=== PATIENT | female | born 1950 | race Caucasian/White ===

== ENCOUNTER 2023-07-03 11:31 | Emergency (ER) | payer MEDICARE, SELFPAY ==
[2023-07-03] VITALS (11 sets, daily range): BP systolic 137–146; BP diastolic 80–91; PULSE 104; RESP 20; TEMP 36.1; O2SAT 93–100; BMI 26.3
--- NOTE | 2023-07-03 12:01 | ED.GENADUL1 ---
HPI - General Adult General Chief complaint: Extremity Problem, Nontraumatic Stated complaint: LOWER EXTREMITY PAIN TO RIGHT SIDE HIP/LEG Time Seen by Provider: 07/03/23 11:38 Source: patient Mode of arrival: Wheelchair Limitations: no limitations History of Present Illness HPI narrative: 73-year-old female presents for right hip pain. She's been having it severely for about fifteen days. She was admitted at the hospital in [place] for four days and then she was admitted at the [facility] for five days. She left there about a week ago. She states that they ran many tests on her but she is not really sure what was wrong. She states that she didn't want to stay and it sounds like she signed out against medical advice. No injury. Related Data Previous Rx's Medication Instructions Recorded oxycodone-acetaminophen 5 mg-325 1 tab PO Q6H PRN pain 7 days #30 07/03/23 mg tablet (Percocet) tabs Allergies Allergy/AdvReac Type Severity Reaction Status Date / Time Iodinated Contrast Media Allergy Severe Anaphylaxis Verified 07/03/23 11:46 Latex, Natural Rubber Allergy Severe Nausea Verified 07/03/23 11:46 codeine AdvReac Severe Nausea Verified 07/03/23 11:46 Review of Systems ROS Narrative A ten point review of systems is negative except as noted above. PFSH PFSH Social History Smoking status: Former smoker Exam Narrative Exam Narrative: Nurses note and vital signs reviewed and patient is not hypoxic. General: The patient appears uncomfortable and is tearful. Skin: Warm, dry, no pallor noted. There is no rash noted. Head: Normocephalic, atraumatic Eye: Normal conjunctiva, no drainage Ears, Nose, Mouth, and Throat: oral mucosa is moist. Nares patent. Cardiovascular: Regular Rate and Rhythm Respiratory: Patient is in no distress, no accessory muscle use, lungs are clear to auscultation, no wheezing, rales or rhonchi Back: non-tender GI: no tenderness to palpation, no masses appreciated. No rebound, guarding, or rigidity noted. Musculoskeletal: the right hip has no bruise or rash. Range of motion causes discomfort. No swelling in the leg. Neurological: A&O, normal speech Psychiatric: Cooperative Constitutional Vital Signs, click to edit/add: Last Vital Signs Temp 97 F L 07/03/23 11:38 Pulse 104 H 07/03/23 11:38 Resp 20 07/03/23 11:38 BP 146/91 H 07/03/23 11:43 Pulse Ox 96 07/03/23 13:10 O2 Del Method Room Air 07/03/23 11:38 Course Vital Signs Vital signs: Vital Signs Temperature 97 F L 07/03/23 11:38 Pulse Rate 104 H 07/03/23 11:38 Respiratory Rate 20 07/03/23 11:38 Blood Pressure 146/91 H 07/03/23 11:38 Pulse Oximetry 98 07/03/23 11:38 Oxygen Delivery Method Room Air 07/03/23 11:38 Temperature 97 F L 07/03/23 11:38 Pulse Rate 104 H 07/03/23 11:38 Respiratory Rate 20 07/03/23 11:38 Blood Pressure 146/91 H 07/03/23 11:43 Pulse Oximetry 96 07/03/23 13:10 Oxygen Delivery Method Room Air 07/03/23 11:38 Medical Decision Making MDM Narrative Medical decision making narrative: I was able to obtain her electronic medical record from the [facility]. She was diagnosed with a T12 compression fracture with some fragments causing some spinal stenosis. There is no evidence of cauda equina. She was given IV morphine here and feels improved. She'll follow-up with her pain management physician and she is encouraged to follow-up with a back specialist. She'll be able to do that in her home town which is in [place]. Treatment diagnosis and follow-up were discussed with the patient. She has no acute neurologic deficit. Differential Diagnosis Differential Diagnosis: compression fracture, cauda equina syndrome, lumbar muscle strain Lab Data Lab results reviewed: Yes I reviewed the patient's lab results Labs: Lab Results 07/03/23 Range/Units 13:18 Urine Color Lt. yellow (YELLOW) Urine Clarity Clear (CLEAR) Urine pH 7.5 (5.0-9.0) Ur Specific [place] 1.015 (1.005-1.025) Urine Protein Negative (NEG/TRACE) mg/dL Urine Glucose (UA) Negative (NEGATIVE) mg/dL Urine Ketones Negative (NEGATIVE) mg/dL Urine Occult Blood Negative (NEGATIVE) Urine Nitrite Negative (NEGATIVE) Urine Bilirubin Negative (NEGATIVE) Urine Urobilinogen 0.2 (0.2-1.0) EU/dL Ur Leukocyte Esterase Negative (NEGATIVE) Urine RBC None seen (0-2) #/HPF Urine WBC 0-2 A (NONE SEEN) #/HPF Ur Squamous Epith Cells Rare (NONE/RARE) #/LPF Urine Crystals Seen A (None Seen) #/HPF Amorphous Sediment Moderate Urine Bacteria None seen (NONE SEEN) #/HPF Urine Casts None seen (NONE SEEN) #/LPF Urine Mucus None seen (NONE SEEN) Discharge Plan Discharge Chief Complaint: Extremity Problem, Nontraumatic Clinical Impression: Compression fracture of thoracic vertebra Patient Disposition: Home, Self-Care Time of Disposition Decision: 15:09 Condition: Good Mode of Transportation: Private Vehicle Prescriptions / Home Meds: New oxycodone-acetaminophen [Percocet] 5-325 mg tablet 1 tab PO Q6H PRN (Reason: pain) 7 Days Qty: 30 0RF Instructions: Osteoporosis (ED), Vertebral Compression Fracture (ED), Kyphoplasty (DC), Vertebroplasty (DC) Stand Alone Forms: Portal Instructions Referrals: Physician,Non-Staff, MD [Primary Care Provider] - 1 week
[2023-07-03] MEDS: MORPHINE SULFATE 4 MG/ML VIAL IV ×2 (12:21→15:27)
[2023-07-03 13:25] LABS: Bilirubin Urine NEGATIVE (NEGATIVE); Blood Urine NEGATIVE (NEGATIVE); Clarity Urine CLEAR (CLEAR); Color Urine LT. YELLOW (YELLOW); Glucose Urine UA NEGATIVE (NEGATIVE); Ketones Urine NEGATIVE (NEGATIVE); Leukocyte Esterase Urine NEGATIVE (NEGATIVE); Nitrite Urine NEGATIVE (NEGATIVE); Protein Urine NEGATIVE (NEG/TRACE); Specific Gravity Urine 1.015 (1.005-1.025); Urobilinogen Urine 0.2 EU/dL (0.2-1.0); pH Urine 7.5 (5.0-9.0)
[2023-07-03 13:36] LABS: Amorphous Sediment Urine MODERATE; Bacteria Urine NONE SEEN #/HPF (NONE SEEN); Cast Seen? NONE SEEN #/LPF (NONE SEEN); Crystals Seen? Seen #/HPF (None Seen); Mucus Urine NONE SEEN (NONE SEEN); RBC Urine NONE SEEN #/HPF (0-2); Squamous Epithelial Cell Urine RARE #/LPF (NONE/RARE); WBC Urine 0-2 #/HPF (NONE SEEN)
== END 2023-07-03 15:32 | disposition home or self-care (01) ==
PROVIDERS: Emergency Provider Emergency Medicine
DX: M48.54XA Collapsed vertebra, not elsewhere classified, thoracic region, initial encounter for fracture (principal); Z87.891 Personal history of nicotine dependence
CPT/HCPCS: 81001; 96374; 96376; 99284

== ENCOUNTER 2025-01-07 13:57 | Emergency (ER) | payer MEDICARE, SELFPAY ==
--- OUTSIDE RECORDS SUMMARY | 2025-01-06 10:02 | XMS_ITS ---
Author Organization [facility] Giovanni Dunne Address [address] [place] [address] Care Team Providers Care Computing Tutor Name Role Phone Munir Hughes Primary Care Provider [phone] REASON FOR VISIT Other Medications Medication SIG (Take, Route, Fr equency, Duration) Notes Start Date End Date Status Meloxicam 15 MG 1 tablet Orally Once a day for 90 days 06/05/2024 Active Social History Sex Assigned At : Social History Observation Description Sex Assigned At Female Encounters Encounter Location Date Provider Diagnosis [facility]- [address] [place] [id number] 01/06/2025 Munir Hughes Chronic pain syndrome G89.4 Assessments Encounter Date Diagnosis (ICD Code) Assessment Notes Treatment Notes Treatment Clinical Notes Section Notes 01/06/2025 Chronic pain syndrome (ICD-10 - G89.4) Plan Of Treatment Medication Medication Name Sig Start Date Stop Date Notes Meloxicam 15 MG 1 tablet Orally Once a day for 90 days Progress Notes * FAUSTINO COATS Olga LidiaDOB:1950 ( 74 yo F)Acc No.[id number]:01/06/2025 Patient: FAUSTINO BAUGH :1950 A ge:74 Y S ex:Female Address:[address], [place], [address] * Refills Refill Meloxicam Tablet, 15 MG, Orally, 90, 1 tablet, Once a day, 90 days, Refills=0 * true * Date: Generated for George peguero/Valentino/Klaus on: 0 01/07/2025 02:05 PM EDT
--- OUTSIDE RECORDS SUMMARY | 2025-01-07 07:32 | XMS_ITS ---
Author Organization [facility] Irenadione sahni Giovanni Address [address] [place] [address] Care Team Providers Care Deliverer Pharmacy Name Role Phone Munir Hughes Primary Care Provider REASON FOR VISIT fax order Social History Sex Assigned At : Social History Observation Description Sex Assigned At Female Encounters Encounter Location Date Provider Diagnosis [facility] [place]- [address] [place] [id number] 01/07/2025 Munir Hughes Plan Of Treatment No Information Progress Notes * FAUSTINO COATS Olga LidiaDOB:1950 ( 74 yo F)Acc No.[id number]:01/07/2025 Patient: FAUSTINO BAUGH J :1950 A ge:74 Y S ex:Female Address:[address], [place], [address] * true * Date: Generated for Printi ng/Fabridgetg/eTransmitting on: 0 01/07/2025 02:05 PM EDT
--- OUTSIDE RECORDS SUMMARY | 2025-01-07 10:00 | XMS_ITS ---
Author Organization [facility] Giovanni Dunne Address [address] [place] [address] Care Team Providers Care Country Manager Name Role Phone Munir Hughes Primary Care Provider [phone] REASON FOR VISIT med refills Social History Sex Assigned At : Social History Observation Description Sex Assigned At Female Encounters Encounter Location Date Provider Diagnosis [facility] [address] [place], [place] [phone] 01/07/2025 Munir Hughes Plan Of Treatment No Information Progress Notes * FAUSTINO COATSDOB:1950 ( 74 yo F)Acc No.[id number]:01/07/2025 Patient: FAUSTINO BAUGH Provider: JENNIFER FRANKS :1950 A ge:74 Y S ex:Female Date:01/07/2025 Address:[address] [facility] Subjective: * Chief Complaints: * 1 . Med refills. * Medical History: Objective: * Vitals: Assessment: Plan: * Treatment: * Billing Information: * Visit Code: * Procedure Codes: * Electronic signature of LOU Quijano on 01/07/2025 at 02:05 PM EDT Sign off status: Pending * Provider: JENNIFER FRANKS Date: 01/07/2025 Generated for Printi ng/Fabrdigetg/eTransmitting on: 01/07/2025 02:05 PM EDT
--- OUTSIDE RECORDS SUMMARY | 2025-01-07 14:05 | XMS_ITS | Patient Health Record ---
Author Organization [facility] in [place] Address [address] [place] [address] Care Team Providers Care Visual Manager Name Role Phone Munir Hughes Primary Care Provider Unavailabl e Reason For Referral No Information Medications Medication SIG (Take, Route, Frequency, Duration) Notes Start Date End Date Status Qvar RediHaler 40 MCG/ACT 1 puff Inhalation Once a day Sample, , * Lot #[id number], Expiration Date:09/0903/11/2019 Active Lisinopril 10 MG 1 tablet Orally Once a day for 30 day(s) Active Ambien 5 MG 1 tablet at bedtime Orally Once a day Active Nebulizer - as directed Active Ventolin HFA 108 (90 Base) MCG/ACT as directed Inhalation Active Albuterol Sulfate (2.5 MG/3ML) 0.083% 3 ml as needed Inhalation every 8 hrs Active Xanax 0.5 MG 1 tablet Orally Twice a day Active Immunizations Vaccine Route Administration Date Status Comm nts Flu, Unspecified Unknown 05/12/2018 Administered Pneumococcal (Prevnar 7) - historic Unknown 10/18/2016 Administered Social History Tobacco Use: Social History Observation Description Date Details (start date - stop date) Never Smoker NA - NA Tobacco Use/Smoking Question Answer Notes Patient is a nonsmoker Problems No Known Problems Plan Of Treatment No Information Insurance Providers Payer Name Payer Address Payer Phone Subscriber Number Group Number Insured Name Patient Relationship to Insured Coverage Start Date Coverage End Date [place] [address] [place], [place] [id number] Kahlil Patricia Self - patient is the insured [place] [address] [address] DEPT OF [place], [place] [id number] Patricia Guillory Self - patient is the insured 6 Medical (General) History Medical History History ICD Code Chemical Pneumonia Surgical History Surgery Date(Month/Year) None since last visit Hospitalization History Reason Date(Month/Year) Chemical Poision 12/07
[2025-01-07 14:09] VITALS: BP 150/89; PULSE 74; TEMP 36.4; O2SAT 95; BMI 28.2
--- NOTE | 2025-01-07 14:22 | XR_ITS ---
The [address] [address] Patient Name: FAUSTINO COATS MRN: [id number] date: 1950 Sex: F Assigned Patient Location: ER Current Patient Location: ER Accession/Order Number: [id number] Exam Date: 01/07/2025 15:21 Report Date: 01/07/2025 15:23 At the request of: DIMITRIS BYRD NP Procedure: XR hip RT min 2V XR hip RT min 2V 01/07/2025 3:11 PM SIGNS AND SYMPTOMS: Acute right groin pain PROTOCOL: Frontal radiograph the pelvis with frontal and frog-leg views of the right hip COMPARISON: None FINDINGS: There is mild narrowing of the joint spaces of the hips. The bony ring of the pelvis is intact. There is no evidence of fracture or dislocation. Degenerative changes are noted in the lower lumbar spine. Vascular calcific the pelvis. XR/XR hip RT min 2V IMPRESSION: No acute bony injury. Degenerative changes are noted in the hips and within the lumbar spine. Impression dictated by: Jarred Santoro M.D. 01/07/2025 3:23 PM Dictation Location: [place] [address] Electronically authenticated by: [id number] Y Date: 01/07/2025 15:23
--- NOTE | 2025-01-07 14:22 | XR_ITS ---
The [place] [id number] Patient Name: FAUSTINO COATS MRN: [id number] date: 1950 Sex: F Assigned Patient Location: ER Current Patient Location: ER Accession/Order Number: [id number] Exam Date: 01/07/2025 15:23 Report Date: 01/07/2025 15:24 At the request of: DIMITRIS BYRD NP Procedure: XR lumbar spine 2-3V XR lumbar spine 2-3V 01/07/2025 3:11 PM SIGNS AND SYMPTOMS: Low back and right hip pain PROTOCOLS: Frontal and lateral radiographs of the lumbar spine COMPARISON: None FINDINGS: There is a levoconvex curvature of the lumbar spine. There is severe disc height loss at L4-5 and L5-S1. There is mild disc height loss throughout otherwise. There is a remote appearing compression deformity at the inferior endplate at T12.. Mild degenerative changes are noted in the sacroiliac joints. XR/XR lumbar spine 2-3V IMPRESSION: No fracture or subluxation. Degenerative changes are present, greatest at L4-L5 and L5-S1. There is a remote appearing compression deformity involving the inferior endplate at T12 with anterior wedging. Impression dictated by: Jarred Santoro M.D. 01/07/2025 3:24 PM Dictation Location: [place] [address] Electronically authenticated by: [id number] Y Date: 01/07/2025 15:24
[2025-01-07] MEDS: MORPHINE SULFATE 2 MG/ML SYRINGE IV (14:40)
[2025-01-07] MEDS: ONDANSETRON PF 4 MG/2 ML VIAL IV (14:40)
--- NOTE | 2025-01-07 14:52 | ED.GENADUL1 ---
HPI HPI - General Adult General Chief complaint: Urogenital-Female Stated complaint: ABDOMINAL FLANK PAIN Time Seen by Provider: 01/07/25 14:04 Source: patient Mode of arrival: walk-in History of Present Illness HPI narrative: Patient is a 74-year-old female who presents to the emergency department today for evaluation for concerns for back and abdominal pain week. She reports the pain to be radiating from where she believes her right groin region around to her lower back. She reports the pain to be constant and believes it to be worse with movement and does describe it sharp intermittently. She states she has had episodes of nausea without vomiting. She reports she was seen at [facility] last week where she had an ultrasound of her right groin and there was concern for arterial blood flow issues and states she does have a CAT scan scheduled to further evaluate for this. She otherwise denies any abdominal pain, vomiting, or diarrhea. No fever/chills, chest pain, shortness of breath, urinary symptoms. Any paresthesias, weakness, loss of movement or lower extremities. She states she had similar pain 2 years ago she was at the [facility] and states she received [place] and Zofran which she had leftovers of and subsequently took for this pain which she states did help. Related Data Home Medications ?Medication ?Instructions ?Recorded ?Confirmed albuterol sulfate 2.5 mg/3 mL mg 01/07/25 (0.083 %) solution for nebulization amoxicillin 500 mg capsule mg 01/07/25 cyclosporine 0.05 % eye drops in a drp ophthalmic (eye) 01/07/25 dropperette (Restasis) lisinopril 5 mg tablet mg 01/07/25 lorazepam 0.5 mg tablet mg 01/07/25 meloxicam 15 mg tablet mg 01/07/25 omeprazole 20 mg capsule,delayed mg 01/07/25 release Previous Rx's ?Medication ?Instructions ?Recorded hydrocodone 5 mg-acetaminophen 325 1 tab PO Q6H PRN pain #7 tabs 01/07/25 mg tablet methylprednisolone 4 mg tablets in 4 mg PO DAILY #21 ea 01/07/25 a dose pack (Medrol (Kirill)) ondansetron 4 mg disintegrating 4 mg PO Q8H PRN nausea and 01/07/25 tablet vomiting 4 days #10 tabs Allergies Allergy/AdvReac Type Severity Reaction Status Date / Time Iodinated Contrast Media Allergy Severe Anaphylaxis Verified 01/07/25 14:06 Latex, Natural Rubber Allergy Severe Nausea Verified 01/07/25 14:06 codeine AdvReac Severe Nausea Verified 01/07/25 14:06 Opioid HPI Opioid Management Most Recent Opioid Data: Last Pain Scale 7 Today, 14:40 Last MAR Pain Assessment Today, 14:40 Review of Systems ROS Status of ROS 10 or more systems reviewed and unremarkable except as noted in history and below PFSH PFSH Social History Smoking status: Former smoker Little interest or pleasure in doing things: not at all Feeling down, depressed, or hopeless: not at all Exam Narrative Exam Narrative: Constituational: Awake/ alert, no apparent distress, well hydrated HENMT: normocephalic, external ears normal, moist oral mucous membranes and oropharynx normal Eyes: EOMI and conjunctivae normal Neck: ROM intact Chest: inspection of chest normal Respiratory: Normal respiratory effort, clear to auscultation bilaterally Cardio: regular rate and regular rhythm GI: soft to palpation and non-tender Back: + Discomfort over R flank/lumbar region, no vertebral tenderness, back is otherwise nontender and normal to inspection MSK:+ Discomfort with palpation over R groin, otherwise normal inspection of R LE, ROM intact, +NVI Skin: no rashes or petechiae Neuro: no focal deficits Psych: mental status grossly normal Constitutional Vital Signs, click to edit/add: Last Vital Signs Temp 97.6 F 01/07/25 14:09 Pulse 74 01/07/25 14:09 Resp 16 01/07/25 14:09 BP 150/89 H 01/07/25 14:09 Pulse Ox 95 01/07/25 14:09 O2 Del Method Room Air 01/07/25 14:09 Course Vital Signs Vital signs: Vital Signs Temperature 97.6 F 01/07/25 14:09 Pulse Rate 74 01/07/25 14:09 Respiratory Rate 16 01/07/25 14:09 Blood Pressure 150/89 H 01/07/25 14:09 Pulse Oximetry 95 01/07/25 14:09 Oxygen Delivery Method Room Air 01/07/25 14:09 Temperature 97.6 F 01/07/25 14:09 Pulse Rate 74 01/07/25 14:09 Respiratory Rate 16 01/07/25 14:09 Blood Pressure 150/89 H 01/07/25 14:09 Pulse Oximetry 95 01/07/25 14:09 Oxygen Delivery Method Room Air 01/07/25 14:09 Medical Decision Making MDM Narrative Medical decision making narrative: The patient is a overall well-appearing 74-year-old female who presented to the emergency department today for evaluation concerns for pain mostly to her right hip/groin and low back that is reproducible with movement. Initial examination without any concerning neurovascular motor findings. Abdomen is nonacute on exam. Historically she did endorse having an ultrasound of her right groin at the [facility] where she reports she had her right leg abducted and following this she began having worsening pain to her hip and back. And she has somebody poor and confusing historian pain possibly seems radicular in nature. There additionally was some elevated concern for possible renal calculus as she endorsed to the right flank with symptoms of possible nausea. CT imaging of abdomen pelvis is without critical findings including kidney stone. Negative for UTI and no occult blood noted. Labs otherwise stable and showed no significant leukocytosis, anemia, thrombocytopenia. Electrolytes including renal and hepatic function stable. X-ray imaging of right hip and lumbar spine does show degenerative changes otherwise no critical findings. Clinical impression arthralgia of right hip and lower right lumbar region. Patient endorsed peripheral arterial disease in the right groin however there are no concerning neurovascular motor findings on exam. She does have a palpable pedal pulse and extremity is warm to touch with stable capillary refill present. Patient did receive supportive measures of IV morphine and Zofran and on reevaluation she reported some improvement in pain. She did receive [place] prior to discharge. Discussed these findings with the patient including recommendations for supportive care of arthralgia. Will discharge home with Medrol Dosepak in addition to [place] and we will fill Zofran for patient. Advised on follow-up with patient's primary care provider for reevaluation. Additionally advised that pain may be multifactorial and related to peripheral arterial disease at which she was encouraged to follow-up with her vascular specialist at [facility] for further reevaluation and additional recommendations for medical therapy in the interim. Discussed signs and symptoms of any worsening condition and when to consider reevaluation. Patient verbalized an understanding of this and is agreeable with the plan to be discharged home. Medical Records Medical records reviewed: Yes I reviewed the patient's medical records Lab Data Lab results reviewed: Yes I reviewed the patient's lab results Labs: Lab Results 01/07/25 01/07/25 Range/Units 14:10 14:35 WBC 6.4 (4.0-11.0) 10^3/uL RBC 4.50 (4.20-5.40) 10^6/uL Hgb 14.1 (12.0-16.0) g/dL Hct 41.7 (36.0-48.0) % MCV 92.7 (81.0-99.0) fL MCH 31.3 (26.7-34.0) pg MCHC 33.8 (29.9-35.2) g/dL RDW 13.7 (11.0-15.0) % Plt Count 235 (150-450) 10^3/uL MPV 9.6 (9.5-13.5) fL Neut % (Auto) 69.3 (43.0-75.0) % Lymph % (Auto) 21.8 (20.5-60.0) % [place]ilton % (Auto) 8.2 (1.7-12.0) % Eos % (Auto) 0.0 L (0.9-7.0) % Baso % (Auto) 0.5 (0.2-2.0) % Neut # (Auto) 4.4 (1.4-6.5) 10^3/uL Lymph # (Auto) 1.4 (1.2-3.8) 10^3/uL [place]ilton # (Auto) 0.5 (0.3-0.8) 10^3/uL Eos # (Auto) 0.0 (0.0-0.7) 10^3/uL Baso # (Auto) 0.0 (0.0-0.1) 10^3/uL Abs Immat Gran (auto) 0.01 (0.00-0.03) 10^3/uL Imm/Tot Granulo (auto) 0.2 (0.0-0.5) % Sodium 140 (136-145) mmol/L Potassium 4.5 (3.5-5.1) mmol/L Chloride 102 (98-107) mmol/L Carbon Dioxide 30.1 (21.0-32.0) mmol/L Anion Gap 12.4 BUN 25.0 H (7.0-18.0) mg/dL Creatinine 0.67 (0.55-1.02) mg/dL Est GFR ( Amer) >60 (>=60 mL/min/1.73m^2) Est GFR (Non-Af Amer) >60 (>=60 mL/min/1.73m^2) BUN/Creatinine Ratio 37.3 Glucose 154 H (74-106) mg/dL Calcium 10.3 H (8.5-10.1) mg/dL Total Bilirubin 0.5 (0.2-1.0) mg/dL AST 21 (15-37) U/L ALT 38 (14-59) U/L Alkaline Phosphatase 72 (46-116) U/L Total Protein 7.2 (6.4-8.2) g/dL Albumin 3.7 (3.4-5.0) g/dL Globulin 3.5 g/dL Albumin/Globulin Ratio 1.1 Lipase 29.0 (16.0-77.0) U/L Urine Color Lt. yellow (YELLOW) Urine Clarity Clear (CLEAR) Urine pH 6.0 (5.0-9.0) Ur Specific Mcclave 1.025 (1.005-1.025) Urine Protein Negative (NEG/TRACE) mg/dL Urine Glucose (UA) Negative (NEGATIVE) mg/dL Urine Ketones Negative (NEGATIVE) mg/dL Urine Occult Blood Negative (NEGATIVE) Urine Nitrite Negative (NEGATIVE) Urine Bilirubin Negative (NEGATIVE) Urine Urobilinogen 0.2 (0.2-1.0) EU/dL Ur Leukocyte Esterase Negative (NEGATIVE) Imaging Data CT scan - abdomen: Attestation: I have reviewed the pertinent imaging results. Radiologist's impression: ITS Impressions Hip X-Ray 01/07/25 14:22 IMPRESSION: No acute bony injury. Degenerative changes are noted in the hips and within the lumbar spine. Impression dictated by: Jarred Santoro M.D. 01/07/2025 3:23 PM Dictation Location: [place] [address] Electronically authenticated by: [id number] Y Date: 01/07/2025 15:23 Lumbar Spine X-Ray 01/07/25 14:22 IMPRESSION: No fracture or subluxation. Degenerative changes are present, greatest at L4-L5 and L5-S1. There is a remote appearing compression deformity involving the inferior endplate at T12 with anterior wedging. Impression dictated by: Jarred Santoro M.D. 01/07/2025 3:24 PM Dictation Location: [facility] Electronically authenticated by: [id number] Y Date: 01/07/2025 15:24 Abdomen/Pelvis CT 01/07/25 15:03 IMPRESSION: No renal, ureteral, or bladder stones. No bowel obstruction or obstructive uropathy. Uncomplicated colonic diverticula are noted. Impression dictated by: Jarred Santoro M.D. 01/07/2025 3:20 PM Dictation Location: [facility] Electronically authenticated by: [id number] Y Date: 01/07/2025 15:20 XR Right Hip: Attestation: I have reviewed the pertinent imaging results. Radiologist's impression: ITS Impressions Hip X-Ray 01/07/25 14:22 IMPRESSION: No acute bony injury. Degenerative changes are noted in the hips and within the lumbar spine. Impression dictated by: Jarred Santoro M.D. 01/07/2025 3:23 PM Dictation Location: [facility] Electronically authenticated by: [id number] Y Date: 01/07/2025 15:23 Lumbar Spine X-Ray 01/07/25 14:22 IMPRESSION: No fracture or subluxation. Degenerative changes are present, greatest at L4-L5 and L5-S1. There is a remote appearing compression deformity involving the inferior endplate at T12 with anterior wedging. Impression dictated by: Jarred Santoro M.D. 01/07/2025 3:24 PM Dictation Location: [facility] Electronically authenticated by: [id number] Y Date: 01/07/2025 15:24 Abdomen/Pelvis CT 01/07/25 15:03 IMPRESSION: No renal, ureteral, or bladder stones. No bowel obstruction or obstructive uropathy. Uncomplicated colonic diverticula are noted. Impression dictated by: Jarred Santoro M.D. 01/07/2025 3:20 PM Dictation Location: [facility] Electronically authenticated by: [id number] Y Date: 01/07/2025 15:20 XR Lumbar Spine: Attestation: I have reviewed the pertinent imaging results. Radiologist's impression: ITS Impressions Hip X-Ray 01/07/25 14:22 IMPRESSION: No acute bony injury. Degenerative changes are noted in the hips and within the lumbar spine. Impression dictated by: Jarred Santoro M.D. 01/07/2025 3:23 PM Dictation Location: [facility]--23 Electronically authenticated by: [id number] Y Date: 01/07/2025 15:23 Lumbar Spine X-Ray 01/07/25 14:22 IMPRESSION: No fracture or subluxation. Degenerative changes are present, greatest at L4-L5 and L5-S1. There is a remote appearing compression deformity involving the inferior endplate at T12 with anterior wedging. Impression dictated by: Jarred Santoro M.D. 01/07/2025 3:24 PM [facility]ation [facility] Electronically authenticated by: [id number] Y Date: 01/07/2025 15:24 Abdomen/Pelvis CT 01/07/25 15:03 IMPRESSION: No renal, ureteral, or bladder stones. No bowel obstruction or obstructive uropathy. Uncomplicated colonic diverticula are noted. Impression dictated by: Jarred Santoro M.D. 01/07/2025 3:20 PM Dictation Location: [facility]-23 Electronically authenticated by: [id number] Y Date: 01/07/2025 15:20 Discharge Plan Discharge Chief Complaint: Urogenital-Female Clinical Impression: Arthralgia Patient Disposition: Home, Self-Care Prescriptions / Home Meds: New methylprednisolone [Medrol (Kirill)] 4 mg tablets,dose pack 4 mg PO DAILY Qty: 21 0RF hydrocodone-acetaminophen 5-325 mg tablet 1 tab PO Q6H PRN (Reason: pain) Qty: 7 0RF ondansetron 4 mg tablet,disintegrating 4 mg PO Q8H PRN (Reason: nausea and vomiting) 4 Days Qty: 10 0RF No Action amoxicillin 500 mg capsule albuterol sulfate 2.5 mg /3 mL (0.083 %) solution for nebulization meloxicam 15 mg tablet lorazepam 0.5 mg tablet omeprazole 20 mg capsule,delayed release(DR/EC) lisinopril 5 mg tablet cyclosporine [Restasis] 0.05 % dropperette OPHTHALMIC (EYE) Print Language: [place]se Instructions: Arthralgia (ED) Additional Instructions: Take Medrol Dosepak as prescribed. May take [place] as needed for severe pain. Otherwise may alternate Tylenol and ibuprofen. Ice any sore areas. Please follow-up with vascular surgery at [facility] for a CT imaging of your lower leg and further discuss with your primary care provider and/our vascular surgery any changes in your home medicine including restarting your baby aspirin and prescribing cholesterol medication. May return to the ER with any new or worsening symptoms/concerns. Referrals: Physician,Non-Staff, MD [Primary Care Provider] - 1 week
[2025-01-07 14:55] LABS: Basophils Percent Auto 0.5 % (0.2-2.0); Hematocrit 41.7 % (36.0-48.0); Hemoglobin 14.1 g/dL (12.0-16.0); Immature Granulocytes Abs Auto 0.01 10^3/uL (0.00-0.03); Immature Granulocytes Pct Auto 0.2 % (0.0-0.5); Lymphocytes Absolute Auto 1.4 10^3/uL (1.2-3.8); Lymphocytes Percent Auto 21.8 % (20.5-60.0); Mean Corpuscular HGB Conc 33.8 g/dL (29.9-35.2); Mean Corpuscular Hemoglobin 31.3 pg (26.7-34.0); Mean Corpuscular Volume 92.7 fL (81.0-99.0); Mean Platelet Volume 9.6 fL (9.5-13.5); Monocytes Absolute Auto 0.5 10^3/uL (0.3-0.8); Monocytes Percent Auto 8.2 % (1.7-12.0); Neutrophils Absolute Auto 4.4 10^3/uL (1.4-6.5); Neutrophils Percent Auto 69.3 % (43.0-75.0); Platelet Count 235 10^3/uL (150-450); Red Cell Distribution Width 13.7 % (11.0-15.0); White Blood Count 6.4 10^3/uL (4.0-11.0)
[2025-01-07 14:56] LABS: Bilirubin Urine NEGATIVE (NEGATIVE); Blood Urine NEGATIVE (NEGATIVE); Clarity Urine CLEAR (CLEAR); Color Urine LT. YELLOW (YELLOW); Glucose Urine UA NEGATIVE (NEGATIVE); Ketones Urine NEGATIVE (NEGATIVE); Leukocyte Esterase Urine NEGATIVE (NEGATIVE); Nitrite Urine NEGATIVE (NEGATIVE); Protein Urine NEGATIVE (NEG/TRACE); Specific Gravity Urine 1.025 (1.005-1.025); Urobilinogen Urine 0.2 EU/dL (0.2-1.0)
[2025-01-07 14:58] LABS: Urine Microscopic Indicated NO
--- NOTE | 2025-01-07 15:03 | CT_ITS ---
[address] [address] Patient Name: FAUSTINO COATS MRN: [id number] date: 1950 Sex: F Assigned Patient Location: ER Current Patient Location: ER Accession/Order Number: [id number] Exam Date: 01/07/2025 15:13 Report Date: 01/07/2025 15:20 At the request of: DIMITRIS BYRD NP Procedure: CT abdomen pelvis wo con CT abdomen pelvis wo con 01/07/2025 3:04 PM SIGNS AND SYMPTOMS: R flank pain- rad to R groin TECHNIQUE: Multidetector ct axial images of the abdomen and pelvis were obtained without IV contrast. Multiplanar reformats were performed and reviewed to further define anatomy and possible pathology. CT was performed with one or more of the following dose reduction techniques: Automated exposure control, adjustment of the mA and/or kV according to patient size, or use of iterative reconstruction technique. COMPARISON: None. FINDINGS: Lower Chest: Atherosclerotic changes are noted thoracic aorta. Mild dependent atelectasis is noted in the lung bases. ABDOMEN: Liver: Calcified granulomas are noted in the liver. Bile Ducts: Normal caliber. Gallbladder: No calcified gallstones. Normal caliber wall. Pancreas: Within normal limits. Spleen: Calcified granulomas are noted in the spleen. Adrenals: Within normal limits. Kidneys: Within normal limits. Pelvis: Reproductive Organs: No pelvic masses. Ureters: Within normal limits. Bladder: Within normal limits. Bowel: Uncomplicated colonic diverticula are noted. Mesenteric Lymph Nodes: No enlarged mesenteric lymph nodes. Peritoneum: No ascites or free air, no fluid collection. Vessels: Atherosclerotic changes are noted in the abdominal aorta and its branches. Retroperitoneum: Within normal limits. Abdominal Wall: Within normal limits. Bones: Degenerative changes are noted in the thoracolumbar spine. Degenerative changes are noted in the hips and sacroiliac joints. There is a levoconvex curvature of the lumbar spine. CT/CT abdomen pelvis wo con IMPRESSION: No renal, ureteral, or bladder stones. No bowel obstruction or obstructive uropathy. Uncomplicated colonic diverticula are noted. Impression dictated by: Jarred Santoro M.D. 01/07/2025 3:20 PM Dictation Location: [place] [address] Electronically authenticated by: [id number] Y Date: 01/07/2025 15:20
[2025-01-07 15:11] LABS: Alanine Aminotransferase 38 U/L (14-59); Albumin Globulin Ratio 1.1; Albumin Level 3.7 g/dL (3.4-5.0); Alkaline Phosphatase 72 U/L (46-116); Anion Gap 12.4; Aspartate Amino Transferase 21 U/L (15-37); BUN Creatinine Ratio 37.3; Bilirubin Total 0.5 mg/dL (0.2-1.0); Calcium 10.3 mg/dL (8.5-10.1); Carbon Dioxide 30.1 mmol/L (21.0-32.0); Chloride 102 mmol/L (98-107); Estimated GFR (African America >60 (>=60 mL/min/1.73m^2); Estimated GFR (Non-African Ame >60 (>=60 mL/min/1.73m^2); Globulin 3.5 g/dL; Glucose 154 mg/dL (74-106); Potassium 4.5 mmol/L (3.5-5.1); Sodium 140 mmol/L (136-145); Total Protein 7.2 g/dL (6.4-8.2)
[2025-01-07] MEDS: HYDROCODONE/ACET 5-325 MG TABLET 1 TAB PO (16:11)
[2025-01-07 16:19] VITALS: BP 135/85; PULSE 78; O2SAT 98
== END 2025-01-07 16:19 | disposition home or self-care (01) ==
PROVIDERS: Nurse Practitioner; Emergency Provider Emergency Medicine
DX: M54.50 Low back pain, unspecified (principal); M25.551 Pain in right hip; R10.9 Unspecified abdominal pain; Z87.891 Personal history of nicotine dependence
CPT/HCPCS: 36415; 72100; 73502; 74176; 80053; 81003; 83690; 85025; 96374; 96375; 99285; J2270; J2405

== ENCOUNTER 2025-06-09 16:02 | Emergency (ER) | payer MEDICARE, SELFPAY ==
--- OUTSIDE RECORDS SUMMARY | 2025-01-07 10:00 | XMS_ITS ---
[facility] Address [address] [place] [address] Care Team Providers Care Optical Instrument Assembly Supervisor Name Role Phone Munir Hughes Primary Care Provider REASON FOR VISIT med refills Social History Sex Assigned At : Social History Observation Description Sex Assigned At Female Encounters Encounter Location Date Provider Diagnosis [facility] [address] [place] [id number] 01/07/2025 Munir Hughes Plan Of Treatment Next Appt Details Provider Name:Munir Hughes, 06/13/2025 11:15:00 AM, [address] [place], [place], [id number], Progress Notes * FAUSTINO COATS Olga LidiaDOB:1950 ( 75 yo F)Acc No.[id number]:01/07/2025 Patient: FAUSTINO BAUGH Provider: JENNIFER FRANKS :1950 A ge:74 Y S ex:Female Date:01/07/2025 Address:[address] [place], [place] Subjective: * Chief Complaints: * 1 . Med refills. * Medical History: Objective: * Vitals: Assessment: Plan: * Treatment: * Billing Information: * Visit Code: * Procedure Codes: * Electronic signature of LOU Quijano on 06/09/2025 at 04:26 PM EDT Sign off status: Pending * Provider: JENNIFER FRANKS Date: 0 01/07/2025 Generated for George peguero/Valentino/Klaus on: 1 04:26 PM EDT
--- OUTSIDE RECORDS SUMMARY | 2025-01-17 12:15 | XMS_ITS ---
Author Organization [facility] Giovanni Dunne Address [address] [place] [address] Care Team Providers Care Automatic Thread Winder Name Role Phone Munir Hughes Primary Care Provider REASON FOR VISIT discuss labs Social History Sex Assigned At : Social History Observation Description Sex Assigned At Female Encounters Encounter Location Date Provider Diagnosis [facility] Main [address] [place] [id number] 01/17/2025 Munir Hughes Plan Of Treatment Next Appt Details Provider Name:Munir Hughes, 06/13/2025 11:15:00 AM, [address] [place], [place], [phone], Progress Notes * FAUSTINO COATS Olga LidiaDOB:1950 ( 75 yo F)Acc No.[id number]:01/17/2025 Patient: FAUSTINO BAUGH Provider: JENNIFER FRANKS :1950 A ge:74 Y S ex:Female Date:01/17/2025 Address:[address], [id number] Subjective: * Chief Complaints: * 1 . Discuss labs. * Medical History: Objective: * Vitals: Assessment: Plan: * Treatment: Care Plan: * Problems: * Billing Information: * Visit Code: * Procedure Codes: Care Plan Details* * Electronic signature of LOU Quijano on 06/09/2025 at 04:25 PM EDT Sign off status: Pending * Provider: JENNIFER FRANKS Date: 0 01/17/2025 Generated for George peguero/Valentino/Klaus on: 1 04:25 PM EDT
--- OUTSIDE RECORDS SUMMARY | 2025-01-24 07:30 | XMS_ITS ---
[facility] Address [address] [place] [address] Care Team Providers Care Sterilization Specialist Name Role Phone Munir Hughes Primary Care Provider [phone] REASON FOR VISIT results and pain Social History Sex Assigned At : Social History Observation Description Sex Assigned At Female Encounters Encounter Location Date Provider Diagnosis [facility] Main [address] [place] [id number] 01/24/2025 Munir Hughes Plan Of Treatment Next Appt Details Provider Name:Munir Hughes, 06/13/2025 11:15:00 AM, [address] [place], [place], [id number], Progress Notes * FAUSTINO COATS Olga LidiaDOB:1950 ( 75 yo F)Acc No.[id number]:01/24/2025 Patient: FAUSTINO BAUGH Provider: JENNIFER FRANKS :1950 A ge:74 Y S ex:Female Date:01/24/2025 Address:[address] [place], [id number] Subjective: * Chief Complaints: * 1 . Results and pain. * Medical History: Objective: * Vitals: Assessment: Plan: * Treatment: * Billing Information: * Visit Code: * Procedure Codes: * Electronic signature of LOU Quijano on 06/09/2025 at 04:24 PM EDT Sign off status: Pending * Provider: JENNIFER FRANKS Date: 0 01/24/2025 Generated for George peguero/Valentino/Klaus on: 1 04:24 PM EDT
--- OUTSIDE RECORDS SUMMARY | 2025-06-06 06:30 | XMS_ITS ---
[facility], [place] Address [address] [place] [address] Care Team Providers Care Cross Roller Name Role Phone Munir Hughes Primary Care Provider Allergies Allergen (clinical drug ingredient) Drug/Non Drug Allergy documented on EMR Reaction Allergy Type Onset Date Status CONTRAST DYE (uncoded) Unknown Allergy Active duloxetine Cymbalta dizzy Drug Allergy Active gabapentin Gabapentin dizziness Drug Allergy Activ e tramadol traMADol HCl rash Drug Allergy Acti ve cyclobenzaprine Cyclobenzaprine Unknown Drug Allergy Active ketorolac Ketorolac dizziness Drug Allergy Active REASON FOR VISIT bh referral Medications Medication SIG (Take, Route, Frequency, Duration) Notes Start Date End Date Status Betamethasone Dipropionate 0.05 % External apply a thin layer to the affected area(s) by topical route 2 times per day 07/23/2018 Not-Taking Fluticasone Propionate 50 MCG/ACT Nasal inhale 2 sprays (100 mcg) in each nostril by intranasal route once daily 11/19/2018 Not-Taking Docusate Sodium 100 MG Oral take 1 capsule (100 mg) by oral route 2 times per day PRN 06/27/2018 Not-Taking Naproxen 500 MG 1 tablet with food or milk as needed Orally Twice a day PRN; Duration: 30 days Not-Taking ZyrTEC Allergy 10 MG Oral take 1 tabl et by Oral route 1 time per day PRN 12/31/2018 Not-Taking Acetaminophen 500 MG 1 tablet as needed Orally every 6 hrs; Duration: 30 days 11/23/2022 Not-Taking Ixgpcdcbfw-VCDY-Hvovc ine 50-325-40 MG Oral take 1 tablet by Oral route every 6 hours as needed not to exceed 6 tablets per 24hrs PRN 10/29/2018 Not-Taking Desoximetasone 0.25 % External apply 1 Cr eam a thin layer to the affected area(s) by Topical route 2 times per day ; rub in gently and completely 05/28/2018 Not-Taking Gabapentin 100 MG 1 capsule Orally three times a day; Duration: 30 day(s) KATI:[id number], change dose to three times 11/17/2021 Not-Taking traZODone HCl 50 MG 2 tablets at bedtime Orally Once a day; Duration: 30 day(s) advise pt to start with 50 mg for a week then increase dosage to 100 mg. Taper down dose of Zolpidem 08/09/2022 Not-Taking Ketorolac Tromethamine 10 MG 1 tablet with food or milk as needed Orally every 6 hrs; Duration: 5 day(s) 09/02/2022 Not-Taking Nystatin 144116 UNIT/ML 4 mL Mouth/Throat Four times a day; Duration: 30 day(s) 08/31/2022 Not-Taking Acetaminophen-Codeine 300-30 MG 1 tablet as needed Orally twice a day; Duration: 30 days As needed Take it for severe pain 09/03/2024 Not-Taking Tylenol 8 Hour Arthritis Pain 650 MG 2 tablets as needed Orally every 8 hrs; Duration: 30 days take 2 Tablets by Oral route 8 hrs PRN 06/24/2019 Not-Taking Ciprofloxacin HCl 500 MG 1 tablet Orally every 12 hrs; Duration: 5 days 09/13/2022 Not-Taking Benzonatate 100 MG 1 capsule as needed Orally Three times a day; Duration: 14 days take it as needed 09/08/2021 Not-Taking Azithromycin 250 MG as directed Orally everyday; Duration: 5 days 2 tablets day first, then 1 tablet 07/16/2024 Not-Taking oxyBUTYnin Chloride 5 MG 1 tablet Orally Twice a day; Duration: 30 days 04/04/2023 Not-Taking Nitrofurantoin Monohyd Macro 100 MG 1 capsule Orally ONE A DAY; Duration: 30 days 02/03/2025 Not-Taking predniSONE 10 MG 1 tablet with food or milk Orally Once a day; Duration: 3 days TAKE ONE TABLET [address] SCAN, THEN TAKE ONE TABLET [address] SCAN, THEN TAKE ONE TABLET MORNING OF THE CT SCAN. 01/20/2025 Not-Taking traZODone HCl 50 MG 1 tablet at bedtime as needed Orally Once a day; Duration: 90 days 06/06/2025 Active Flonase Allergy Relief 50 MCG/ACT 1 spray in each nostril Nasally Once a day; Duration: 30 day(s) 05/26/2021 Not-Taking Atorvastatin Calcium 10 MG 1 tablet Orally Once a day; Duration: 90 days 10/22/2021 Active Meloxicam 15 MG 1 tablet Orally Once a day; Duration: 90 days 06/05/2024 Not-Taking Amoxicillin 500 MG 1 tablet Orally Three times a day; Duration: 5 days 01/03/2025 Not-Taking Ibuprofen 800 MG 1 tablet with food or milk as needed Orally every 8 hrs; Duration: 90 days 08/31/2022 Active BD PEN NEEDLES ULTRA-FINE once a week; Duration: 90 days 04/25/2025 Active diphenhydrAMINE HCl 50 MG 1 TABLET Orally Once a day; Duration: 1 days TAKE MORNING OF CT SCAN 01/20/2025 Active Lisinopril 5 MG 1 tablet Oral twice a day; Duration: 90 days If BP >140/90 then take another tablet 06/24/2019 Active Restasis 0.05 % 1 drop into affected eye Ophthalmic Twice a day; Duration: 30 days 07/10/2023 Active Albuterol Sulfate (2.5 MG/3ML) 0.083% 3 milliters Inhalation every 6 hrs; Duration: 30 days use it as needed 01/12/2022 Active Zolpidem Tartrate 5 MG 1 tablet at bedtime as needed Orally Once a day; Duration: 30 days As needed 09/18/2024 Active Albuterol Sulfate HFA 108 (90 Base) MCG/ACT 2 puffs Inhalation every 6 hrs; Duration: 30 days use it as needed during weather change 05/26/2021 Active IGlucose Test Strips - as directed In Vitro everyday; Duration: 90 days one touch Ultra test strips for BS check give one box 02/21/2024 Active Ozempic (0.25 or 0.5 MG/DOSE) 2 MG/3ML 0.25mg Subcutaneous once weekly injection; Duration: 28 days STOP TRULICITY 03/14/2025 Active TRAMADO AND LEXAPRO INCREASE RISK 08/31/2018 Active Aspirin Adult Low Strength 81 MG Oral take 1 tablet (81 mg) by oral route once daily 10/29/2018 Active Omeprazole 20 MG 1 tablet 30 minutes before morning meal Oral Once a day; Duration: 90 days TAke 1 Tablet by Oral route 1 time per day prn 06/24/2019 Active LORazepam 1 MG 1 TABLET Orally EVERY 12 HOURS IF NEEDED; Duration: 30 days 06/06/2025 Active Acetaminophen 500 MG 1 tablet as needed Orally every 6 hrs; Duration: 30 days As needed 09/02/2022 Active Dutasteride 0.5 MG 1 capsule Orally Once a day Active Minoxidil 2.5 MG 1 tablet Orally Twice a day Active Immunizations Vaccine Route Administration Date Status Comme nts Influenza IIV3 - PRIVATE - 6 MONTHS & OLDER IM Intramuscular 06/06/2025 Administered verified by Jose F Samuels Social History Tobacco Use: Social History Observation Description Date Details (start date - stop date) Never Smoker NA - NA Sex Assigned At : Social History Observation Description Sex Assigned At Female CAGE-AID Questionnaire (2018 Edition) Question Answer Notes Have you ever felt that you ought to cut down on your drinking or drug use? No Have people annoyed you by criticizing your drin fernie or drug use? No Have you ever felt bad or guilty about your drin fernie or drug use? No Have you ever had a drink or used drugs first thing in the morning to steady your nerves or to get rid of a hangover? No CAGE-AID Score 0 Interpretation Negative Tobacco Control (Standard) Question Answer Notes Tobacco use: Nonsmoker Section Notes: pt recieved covid vaccine an d booster. Problems Problem Type SNOMED Code ICD Code Onset Dates Problem Status W/U Status Risk Notes Problem Insomnia disorder related to another mental disorder (05335406) Psychophysiological insomnia (F51.04) Active confirmed Vital Signs Temperature 97.1 degrees Fahrenheit 06/06/20 25 Blood pressure systolic 140 mm Hg 06/06/20 25 Blood pressure diastolic 90 mm Hg 025 Heart Rate 95 /min 06/06/2025 Height 67.00 in 06/06/2025 Weight 174 lbs 06/06/2025 BMI 27.25 kg/m2 06/06/2025 Oximetry 98 % 06/06/2025 Weight-kg 78.93 kg 06/06/2025 PT DID NOT TAKE BP MEDS THIS MORNING Encounters Encounter Location Date Provider Diagnosis [address] [id number] 06/06/2025 Munir Hughes Essential (primary) hypertension I10 ; Type 2 diabetes mellitus with hyperglycemia, without long-term current use of insulin E11.65 ; Grief F43.21 ; Encounter for immunization Z23 ; Hyperlipidemia, unspecified hyperlipidemia type E78.5 and Psychophysiological insomnia F51.04 Assessments Encounter Date Diagnosis (ICD Code) Assessment Notes Treatment Notes Treatment Clinical Notes Section Notes 06/06/2025 Essential (primary) hypertension (ICD-10 - I10) 06/06/2025 Type 2 diabetes mellitus with hyperglycemia, without long-term current use of insulin (ICD-10 - E11.65) 06/06/2025 Grief (ICD-10 - F43.21) 06/06/2025 Encounter for immunization (ICD-10 - Z23) 06/06/2025 Hyperlipidemia, unspecified hyperlipidemia type (ICD-10 - E78.5) 06/06/2025 Psychophysiological insomnia (ICD-10 - F51.04) 06/06/2025 Other GET LABS DRAWN TODAY GETLABS Plan Of Treatment Medication Medication Name Sig Start Date Stop Date Notes traZODone HCl 50 MG 1 tablet at bedtime as needed Orally Once a day; Duration: 90 days 06/06/2025 Atorvastatin Calcium 10 MG 1 tablet Orally Once a day; Duration: 90 days 10/22/2021 Lisinopril 5 MG 1 tablet Oral twice a day; Duration: 90 days 06/24/2019 If BP >140/90 the n take another tablet Ozempic (0.25 or 0.5 MG/DOSE) 2 MG/3ML 0.25mg Subcutaneous once weekly injection; Duration: 28 days 03/14/2025 STOP TRULICITY Omeprazole 20 MG 1 tablet 30 minutes before morning meal Oral Once a day; Duration: days 06/24/2019 TAke 1 Tablet by Oral route 1 time per day prn LORazepam 1 MG 1 TABLET Orally EVER Y 12 HOURS IF NEEDED; Duration: 30 days 06/06/2025 Treatment Notes Assessment Notes Other GET LABS DRAWN TODAY Next Appt Details Follow Up: 3 Months, Reason: Provider Name:Munir Hughes, 06/13/2025 11:15:00 AM, [address] [place], [place], [id number], Medications Administered Medication Instructions Date of Administration Dosage Notes Cyanocobalamin 06/06/2025 1000 ug verified Lisa Samuels Progress Notes * FAUSTINO COATSDOB:1950 ( 75 yo F)Acc No.[id number]:06/06/2025 Patient: FAUSTINO BAUGH Provider: JENNIFER FRANKS :1950 A ge:75 Y S ex:Female Date:06/06/2025 Address:[address], [id number] Subjective: * Chief Complaints: * B h referral * HPI: D epression Screening: PHQ-9 L ittle interest or pleasure in doing things N ot at all, F eeling down, depressed, or hopeless N ot at all, T rouble falling or staying asleep, or sleeping too much N early every day, F eeling tired or having little energy N early every day, P oor appetite or overeating N early every day, F eeling bad about yourself or that you are a failure, or have let yourself or your family down N ot at all, T rouble concentrating on things, such as reading the newspaper or watching television N ot at all,?Moving or speaking so slowly that other people could have noticed; or the opposite, being so fidgety or restless that you have been moving around a lot more than usual N ot at all, T houghts that you would be better off or of hurting yourself in some way N ot at all, T otal Score 9 , I nterpretation M ild Depression. N ew/Follow-up Patient Consult: c/o Depression. c/o Fatigue. c/o Insomnia. c/o Joint pain. Denies : Abdominal pain. D enies : Allergic rhinitis. D enies : Blocked ear. D enies : Blood in stool. D enies : Blood in urine. D enies : Chest pain. D enies : Constipation. D enies : Cough. D enies : Diarrhea. D enies : Dizziness. D enies : Dysphagia. D enies : Dysuria. D enies : Earache. D enies : Fever.?Denies : Lightheadedness. D enies : Loss of consciousness. D enies : Lower extremity edema. D enies : Nausea/Vomiting. D enies : Onychomycosis. D enies : Palpitations. D enies : Rash. D enies : Rectal bleeding. D enies : Reflux. D enies : Shortness of breath.?Denies : Sinusitis. D enies : Sore throat. D enies : Syncope. D enies : Tremor. D enies : Upper respiratory infection. D enies : Urinary symptoms. Pt c/o not sleeping well at night. Pt is greiving, both her sons have . States she does have people to talk to. H aving bad headaches- bandlike, excedrin helps. . Still having brain fog but it is getting better. Informs me that her glucose was 129 this morning. she has started doing water aerobics. She never got her Anjali labs done, will have blood draw today. * Medical History: * Surgical History: B ACK SURGERY- CERVICAL AND LUMBAR FUSION, HYSTERECTOMY, PDA CLOSURE Carpel Tunnel Surgery RT wrist 11/08/2023 * Hospitalization/Major Diagno stic Procedure: * Family History: F ather: , ARDS. M other: alive, HTN. S iblings: SISTER - HTN. * Social History: T obacco Use: T obacco Control (Standard) T obacco use: N onsmoker. P C-PTSD-5: P C-PTSD-5 S ometimes things happen to people that are unusually or especially frightening, horrible, or traumatic. For example: a serious accident or fire a physical or sexual assault or abuse an earthquake or flood a war seeing someone be killed or seriously injured having a loved one through homicide or suicide. Have you ever experienced this kind of event? Y es, 1 . Had nightmares about the event(s) or thought about the event(s) when you did not want to? N o, 2 . Tried hard not to think about the event(s) or went out of your way to avoid situations that reminded you of the event(s)? N o, 3 . Been constantly on guard, watchful, or easily startled??No, 4 . [place] numb or detached from people, activities, or your surroundings? N o, 5 . [place] guilty or unable to stop blaming yourself or others for the event(s) or any problems the event(s) may have caused? N o. D rugs/Alcohol: C AGE-AID Questionnaire (2018 Edition) H ave you ever felt that you ought to cut down on your drinking or drug use? N o, H ave people annoyed you by criticizing your drinking or drug use? N o, H ave you ever felt bad or guilty about your drinking or drug use? N o, H ave you ever had a drink or used drugs first thing in the morning to steady your nerves or to get rid of a hangover? N o, C AGE-AID Score 0 , I nterpretation N egative. p t recieved covid vaccine and booster. * Medications: T akingMinoxidil 2.5 MG Tablet 1 tablet Orally Twice a day Dutasteride 0.5 MG Capsule 1 capsule Orally Once a day Acetaminophen 500 MG Tablet 1 tablet as needed Orally every 6 hrs As neededAspirin Adult Low Strength 81 MG Tablet Delayed Release Oral , Notes to Pharmacist: take 1 tablet (81 mg) by oral route once dailyTRAMADO AND LEXAPRO INCREASE RISK Zolpidem Tartrate 5 MG Tablet 1 tablet at bedtime as needed Orally Once a day As neededAlbuterol Sulfate (2.5 MG/3ML) 0.083% Nebulization Solution 3 milliters Inhalation every 6 hrs , Notes to Pharmacist: use it as neededIGlucose Test Strips - Strip as directed In Vitro everyday , Notes to Pharmacist: one touch Ultra test strips for BS checkgive one boxAlbuterol Sulfate HFA 108 (90 Base) MCG/ACT Aerosol Solution 2 puffs Inhalation every 6 hrs , Notes to Pharmacist: use it as needed during weather changediphenhydrAMINE HCl 50 MG Tablet 1 TABLET Orally Once a day , Notes to Pharmacist: TAKE MORNING OF CT SCANAtorvastatin Calcium 10 MG Tablet 1 tablet Orally Once a day Restasis 0.05 % Emulsion 1 drop into affected eye Ophthalmic Twice a day Lisinopril 5 MG Tablet 1 tablet Oral twice a day , Notes to Pharmacist: If BP >140/90 then take another tabletOzempic (0.25 or 0.5 MG/DOSE) 2 MG/3ML Solution Pen-injector 0.25mg Subcutaneous once weekly injection , Notes to Pharmacist: STOP TRULICITYBD PEN NEEDLES ULTRA-FINE 29 GAUGE, 12.7 MM once a week Ibuprofen 800 MG Tablet 1 tablet with food or milk as needed Orally every 8 hrs Omeprazole 20 MG Capsule Delayed Release 1 tablet 30 minutes before morning meal Oral Once a day , Notes to Pharmacist: TAke 1 Tablet by Oral route 1 time per day prnLORazepam 1 MG Tablet 1 TABLET Orally EVERY 12 HOURS IF NEEDED Taking Minoxidil 2.5 MG Tablet 1 tablet Orally Twice a day Taking Dutasteride 0.5 MG Capsule 1 capsule Orally Once a day Taking Acetaminophen 500 MG Tablet 1 tablet as needed Orally every 6 hrs As neededTaking Aspirin Adult Low Strength 81 MG Tablet Delayed Release Oral , Notes to Pharmacist: take 1 tablet (81 mg) by oral route once dailyTaking TRAMADO AND LEXAPRO INCREASE RISK Taking Zolpidem Tartrate 5 MG Tablet 1 tablet at bedtime as needed Orally Once a day As neededTaking Albuterol Sulfate (2.5 MG/3ML) 0.083% Nebulization Solution 3 milliters Inhalation every 6 hrs , Notes to Pharmacist: use it as neededTaking IGlucose Test Strips - Strip as directed In Vitro everyday , Notes to Pharmacist: one touch Ultra test strips for BS checkgive one boxTaking Albuterol Sulfate HFA 108 (90 Base) MCG/ACT Aerosol Solution 2 puffs Inhalation every 6 hrs , Notes to Pharmacist: use it as needed during weather changeTaking diphenhydrAMINE HCl 50 MG Tablet 1 TABLET Orally Once a day , Notes to Pharmacist: TAKE MORNING OF CT SCANTaking Atorvastatin Calcium 10 MG Tablet 1 tablet Orally Once a day Taking Restasis 0.05 % Emulsion 1 drop into affected eye Ophthalmic Twice a day Taking Lisinopril 5 MG Tablet 1 tablet Oral twice a day , Notes to Pharmacist: If BP >140/90 then take another tabletTaking Ozempic (0.25 or 0.5 MG/DOSE) 2 MG/3ML Solution Pen-injector 0.25mg Subcutaneous once weekly injection , Notes to Pharmacist: STOP TRULICITYTaking BD PEN NEEDLES ULTRA-FINE 29 GAUGE, 12.7 MM once a week Taking Ibuprofen 800 MG Tablet 1 tablet with food or milk as needed Orally every 8 hrs Taking Omeprazole 20 MG Capsule Delayed Release 1 tablet 30 minutes before morning meal Oral Once a day , Notes to Pharmacist: TAke 1 Tablet by Oral route 1 time per day prnTaking LORazepam 1 MG Tablet 1 TABLET Orally EVERY 12 HOURS IF NEEDED Not-TakingFlonase Allergy Relief 50 MCG/ACT Suspension 1 spray in each nostril Nasally Once a day Amoxicillin 500 MG Tablet 1 tablet Orally Three times a day Meloxicam 15 MG Tablet 1 tablet Orally Once a day predniSONE 10 MG Tablet 1 tablet with food or milk Orally Once a day , Notes to Pharmacist: TAKE ONE TABLET [address] SCAN, THEN TAKE ONE TABLET [address] SCAN, THEN TAKE ONE TABLET MORNING OF THE CT SCAN.Nitrofurantoin Monohyd Macro 100 MG Capsule 1 capsule Orally ONE A DAY oxyBUTYnin Chloride 5 MG Tablet 1 tablet Orally Twice a day Azithromycin 250 MG Tablet as directed Orally everyday , Notes to Pharmacist: 2 tablets day first, then 1 tabletBenzonatate 100 MG Capsule 1 capsule as needed Orally Three times a day , Notes to Pharmacist: take it as neededAcetaminophen-Codeine 300-30 MG Tablet 1 tablet as needed Orally twice a day As needed, Notes to Pharmacist: Take it for severe painNystatin 140340 UNIT/ML Suspension 4 mL Mouth/Throat Four times a day Ketorolac Tromethamine 10 MG Tablet 1 tablet with food or milk as needed Orally every 6 hrs Ciprofloxacin HCl 500 MG Tablet 1 tablet Orally every 12 hrs Tylenol 8 Hour Arthritis Pain 650 MG Tablet Extended Release 2 tablets as needed Orally every 8 hrs , Notes to Pharmacist: take 2 Tablets by Oral route 8 hrs PRNAcetaminophen 500 MG Tablet 1 tablet as needed Orally every 6 hrs traZODone HCl 50 MG Tablet 2 tablets at bedtime Orally Once a day , Notes to Pharmacist: advise pt to start with 50 mg for a week then increase dosage to 100 mg. Taper down dose of ZolpidemGabapentin 100 MG Capsule 1 capsule Orally three times a day , Notes to Pharmacist: KATI:[id number], change dose to three timesDesoximetasone 0.25 % Cream External , Notes to Pharmacist: apply 1 Cream a thin layer to the affected area(s) by Topical route 2 times per day ; rub in gently and kymbjrdtzfTcmffismyy-YJYD-Fbqwmypv 50-325-40 MG Tablet Oral , Notes to Pharmacist: take 1 tablet by Oral route every 6 hours as needed not to exceed 6 tablets per 24hrs PRNDocusate Sodium 100 MG Capsule Oral , Notes to Pharmacist: take 1 capsule (100 mg) by oral route 2 times per day PRNFluticasone Propionate 50 MCG/ACT Suspension Nasal , Notes to Pharmacist: inhale 2 sprays (100 mcg) in each nostril by intranasal route once dailyBetamethasone Dipropionate 0.05 % Ointment External , Notes to Pharmacist: apply a thin layer to the affected area(s) by topical route 2 times per dayZyrTEC Allergy 10 MG Tablet Oral , Notes to Pharmacist: take 1 tablet by Oral route 1 time per day PRNNaproxen 500 MG Tablet 1 tablet with food or milk as needed Orally Twice a day PRN Not-Taking Flonase Allergy Relief 50 MCG/ACT Suspension 1 spray in each nostril Nasally Once a day Not-Taking Amoxicillin 500 MG Tablet 1 tablet Orally Three times a day Not-Taking Meloxicam 15 MG Tablet 1 tablet Orally Once a day Not-Taking predniSONE 10 MG Tablet 1 tablet with food or milk Orally Once a day , Notes to Pharmacist: TAKE ONE TABLET [address] SCAN, THEN TAKE ONE TABLET [address] SCAN, THEN TAKE ONE TABLET MORNING OF THE CT SCAN.Not-Taking Nitrofurantoin Monohyd Macro 100 MG Capsule 1 capsule Orally ONE A DAY Not-Taking oxyBUTYnin Chloride 5 MG Tablet 1 tablet Orally Twice a day Not- Taking Azithromycin 250 MG Tablet as directed Orally everyday , Notes to Pharmacist: 2 tablets day first, then 1 tabletNot-Taking Benzonatate 100 MG Capsule 1 capsule as needed Orally Three times a day , Notes to Pharmacist: take it as neededNot- Taking Acetaminophen-Codeine 300-30 MG Tablet 1 tablet as needed Orally twice a day As needed, Notes to Pharmacist: Take it for severe painNot-Taking Nystatin [id number] UNIT/ML Suspension 4 mL Mouth/Throat Four times a day Not-Taking Ketorolac Tromethamine 10 MG Tablet 1 tablet with food or milk as needed Orally every 6 hrs Not-Taking Ciprofloxacin HCl 500 MG Tablet 1 tablet Orally every 12 hrs Not- Taking Tylenol 8 Hour Arthritis Pain 650 MG Tablet Extended Release 2 tablets as needed Orally every 8 hrs , Notes to Pharmacist: take 2 Tablets by Oral route 8 hrs PRNNot-Taking Acetaminophen 500 MG Tablet 1 tablet as needed Orally every 6 hrs Not-Taking traZODone HCl 50 MG Tablet 2 tablets at bedtime Orally Once a day , Notes to Pharmacist: advise pt to start with 50 mg for a week then increase dosage to 100 mg. Taper down dose of ZolpidemNot-Taking Gabapentin 100 MG Capsule 1 capsule Orally three times a day , Notes to Pharmacist: KATI:[id number], change dose to three timesNot-Taking Desoximetasone 0.25 % Cream External , Notes to Pharmacist: apply 1 Cream a thin layer to the affected area(s) by Topical route 2 times per day ; rub in gently and completelyNot-Taking Lathnjwceh-UHHX-Oxxnjtww 50-325-40 MG Tablet Oral , Notes to Pharmacist: take 1 tablet by Oral route every 6 hours as needed not to exceed 6 tablets per 24hrs PRNNot-Taking Docusate Sodium 100 MG Capsule Oral , Notes to Pharmacist: take 1 capsule (100 mg) by oral route 2 times per day PRNNot- Taking Fluticasone Propionate 50 MCG/ACT Suspension Nasal , Notes to Pharmacist: inhale 2 sprays (100 mcg) in each nostril by intranasal route once dailyNot-Taking Betamethasone Dipropionate 0.05 % Ointment External , Notes to Pharmacist: apply a thin layer to the affected area(s) by topical route 2 times per dayNot-Taking ZyrTEC Allergy 10 MG Tablet Oral , Notes to Pharmacist: take 1 tablet by Oral route 1 time per day PRNNot-Taking Naproxen 500 MG Tablet 1 tablet with food or milk as needed Orally Twice a day PRN * Allergies: C ONTRAST DYE: AllergyGabapentin: dizzinessCyclobenzaprineKetorolac: dizzinessCymbalta: dizzytraMADol HCl: rashno[Allergies Verified] Objective: * Vitals: H t: 67.00 in, Wt:174lbs, BMI:27.25Index, Temp:97.1F, BP: 155/89 mm Hg,140/90mm Hg, Oxygen sat %:98%, HR:95/min, LMP: hyst, Wt-k.93 kg. PT DID NOT TAKE BP MEDS THIS MORNING. * Examination: G eneral Examination: GENERAL APPEARANCE: a lert, well hydrated, in no distress.? HEAD: h air loss, , normocephalic. EARS: t ympanic membrane intact, clear, BOTH EARS, auditory canal clear. NOSE: n o lesions, nares patent. ORAL CAVITY: m ucosa moist, no lesions. THROAT: n o erythema, no exudate. NECK/THYROID: n o cervical lymphadenopathy, no masses, no thyromegaly. HEART: r egular rate and rhythm, no S3, S4, no murmurs, rubs, gallops. LUNGS: c lear to auscultation bilaterally, no wheezes, rales, rhonchi. ABDOMEN: n o masses palpable, soft, nontender, nondistended, no rebound tenderness, no hepatosplenomegaly, no guarding or rigidity. EXTREMITIES: 1 + pitting edema lower extremities. ? Assessment: * Assessment: 1. T ype 2 diabetes mellitus with hyperglycemia, without long-term current use of insulin - E11.65 (Primary) 2 . E ssential (primary) hypertension - I10 3 .?Grief - F43.21 4 . E ncounter for immunization - Z23 5 . H yperlipidemia, unspecified hyperlipidemia type - E78.5 6 . P sychophysiological insomnia - F51.04 Plan: * Treatment: 2. E ssential (primary) hypertension Refill Omeprazole Capsule Delayed Release, 20 MG, 1 tablet 30 minutes before morning meal, Oral, Once a day, 90 days, 90, Refills 0, Notes to Pharmacist: TAke 1 Tablet by Oral route 1 time per day prn; R efill Lisinopril Tablet, 5 MG, 1 tablet, Oral, twice a day, 90 days, 180, Refills 0, Notes to Pharmacist: If BP >140/90 then take another tablet. 3. G rief Refill LORazepam Tablet, 1 MG, 1 TABLET, Orally, EVERY 12 HOURS IF NEEDED, 30 days, 60, Refills 0.? 4. H yperlipidemia, unspecified hyperlipidemia type Refill Atorvastatin Calcium Tablet, 10 MG, 1 tablet, Orally, Once a day, 90 days, 90, Refills 0.? 5. P sychophysiological insomnia Start traZODone HCl Tablet, 50 MG, 1 tablet at bedtime as needed, Orally, Once a day, 90 days, 90 Tablet, Refills 0. 6. O thers Notes: GET LABS DRAWN TODAY Clinical Notes: GETLABS * Immunizations: Influenza IIV3 - PRIVATE - 6 MONTHS & OLDER : 0.5 mL (Dose No:1) (Route: Intramuscular) given by Tootie Pearce , Court Recording Monitor on Left Gluteus Medius (Encounter for immunization) * Therapeutic Injections: Vitamin B12 : 1000 mcg (Dose No:1) (Route: Intramuscular) given by Tootie Pearce on right dorsogluteal * Procedure Codes: 9 0658 [id number] Fqhc visit, estab [id number] INJ VIT B-12 CYNOCOBLMN TO 1000 [id number] Admin Inject THER/PROPH/DIAG INJ, SC/IM * Follow Up: 3 Months * Billing Information: * Visit Code: 82536 Office Visit, Est Pt., Level 3. * Procedure Codes: 51761 INFLUENZA. G0467 Fqhc visit, estab pt. J3420 INJ VIT B-12 CYNOCOBLMN TO 1000 MCG. 90306 Admin Inject THER/PROPH/DIAG INJ, SC/IM. * Sign off status: Completed true * Provider: JENNIFER FRANKS Date: 1 Generated for George peguero/Valentino/eTransmitting on: 04:26 PM EDT History and Physical Notes * HPI (History of Present Illness) Category Sub-Category Detail Notes Category Not es New/Follow-up Patient Consult Pt c/o not sleeping well at night. Pt is greiving, both her sons have . States she does have people to talk to. Having bad headaches- bandlike, excedrin helps. . Still having brain fog but it is getting better. Informs me that her glucose was 129 this morning. she has started doing water aerobics. She never got her Anjali labs done, will have blood draw today. Depression Screening PHQ-9 Little inte rest or pleasure in doing things: Not at all Feeling down, depressed, or hopeless: No t at all Trouble falling or staying asleep, or sl eeping too much: Nearly every day Feeling tired or having little energy: N early every day Poor appetite or overeating: Nearly ever y day Feeling bad about yourself o r that you are a failure, or have let yourself or your family down: Not at all Trouble concentrating on thi ngs, such as reading the newspaper or watching television: Not at all Moving or speaking so slowly that other people could have noticed; or the opposite, being so fidgety or restless that you have been moving around a lot more than usual: Not at all Thoughts that you would be b chad off or of hurting yourself in some way: Not at all Total Score: 9 Interpretation: Mild Depression Examination Category Sub-Category Detail Notes Category Not es General Examination GENERAL APPEARANCE: alert, w ell hydrated, in no distress HEAD: hair loss, , normoce phalic EARS: tympanic membrane in tact, clear, BOTH EARS, auditory canal clear NOSE: no lesions, nares pa tent THROAT: no erythema, no exud ate NECK/THYROID: no cervical lymphade nopathy, no masses, no thyromegaly HEART: regular rate and rhy thm, no S3, S4, no murmurs, rubs, gallops LUNGS: clear to auscultatio n bilaterally, no wheezes, rales, rhonchi ABDOMEN: no masses palpable, soft, nontender, nondistended, no rebound tenderness, no hepatosplenomegaly, no guarding or rigidity EXTREMITIES: 1+ pitting edema low er extremities ORAL CAVITY: mucosa moist, no les ions
[2025-06-09] VITALS (7 sets, daily range): BP systolic 136–161; BP diastolic 85–110; PULSE 73–98; TEMP 36.8–37.3; O2SAT 94–98; BMI 27.3
--- OUTSIDE RECORDS SUMMARY | 2025-06-09 10:45 | XMS_ITS ---
[facility] Organization [facility] [place] Address [address] [place] [address] Care Team Providers Care Copy Editor Name Role Phone Munir Hughes Primary Care [...] dizziness Drug Allergy Active REASON FOR VISIT cough Medications Medication SIG (Take, Route, Frequency, Duration) Notes Start Date End Date Status Omeprazole 20 MG 1 tablet 30 minutes before morning meal Oral Once a day; Duration: 90 days TAke 1 Tablet by Oral route 1 time per day prn 06/24/2019 Active Lisinopril 5 MG 1 tablet Oral twice a day; Duration: 90 days If BP >140/90 then take another tablet 06/24/2019 Active Ozempic (0.25 or 0.5 MG/DOSE) 2 MG/3ML 0.25mg Subcutaneous once weekly injection; Duration: 28 days STOP TRULICITY 03/14/2025 Active traZODone HCl 50 MG 1 tablet at bedtime as needed Orally Once a day; Duration: 90 days 06/06/2025 Active Atorvastatin Calcium 10 MG 1 tablet Orally Once a day; Duration: 90 days 10/22/2021 Active Betamethasone Dipropionate 0.05 % External apply a thin layer to the affected area(s) by topical route 2 times per day 07/23/2018 Not-Taking Naproxen 500 MG 1 tablet with food or milk as needed Orally Twice a day PRN; Duration: 30 days Not-Taking ZyrTEC Allergy 10 MG Oral take 1 tabl et by Oral route 1 time per day PRN 12/31/2018 Not-Taking LORazepam 1 MG 1 TABLET Orally EVERY 12 HOURS IF NEEDED; Duration: 30 days 06/06/2025 Active Fluticasone Propionate 50 MCG/ACT Nasal inhale 2 sprays (100 mcg) in each nostril by intranasal route once daily 11/19/2018 Not-Taking Gabapentin 100 MG 1 capsule Orally three times a day; Duration: 30 day(s) KATI:[id number], change dose to three times 11/17/2021 Not-Taking traZODone HCl 50 MG 2 tablets at bedtime Orally Once a day; Duration: 30 day(s) advise pt to start with 50 mg for a week then increase dosage to 100 mg. Taper down dose of Zolpidem 08/09/2022 Not-Taking Lfgknngvpv-KMZN-Zhjsr ine 50-325-40 MG Oral take 1 tablet by Oral route every 6 hours as needed not to exceed 6 tablets per 24hrs PRN 10/29/2018 Not-Taking Desoximetasone 0.25 % External apply 1 Cr eam a thin layer to the affected area(s) by Topical route 2 times per day ; rub in gently and completely 05/28/2018 Not-Taking Docusate Sodium 100 MG Oral take 1 capsule (100 mg) by oral route 2 times per day PRN 06/27/2018 Not-Taking Nystatin 439020 UNIT/ML 4 mL Mouth/Throat Four times a day; Duration: 30 day(s) 08/31/2022 Not-Taking Ciprofloxacin HCl 500 MG 1 tablet Orally every 12 hrs; Duration: 5 days 09/13/2022 Not-Taking Ketorolac Tromethamine 10 MG 1 tablet with food or milk as needed Orally every 6 hrs; Duration: 5 day(s) 09/02/2022 Not-Taking Acetaminophen 500 MG 1 tablet as needed Orally every 6 hrs; Duration: 30 days 11/23/2022 Not-Taking Tylenol 8 Hour Arthritis Pain 650 MG 2 tablets as needed Orally every 8 hrs; Duration: 30 days take 2 Tablets by Oral route 8 hrs PRN 06/24/2019 Not-Taking Nitrofurantoin Monohyd Macro 100 MG 1 capsule Orally ONE A DAY; Duration: 30 days 02/03/2025 Not-Taking Azithromycin 250 MG as directed Orally everyday; Duration: 5 days 2 tablets day first, then 1 tablet 07/16/2024 Not-Taking oxyBUTYnin Chloride 5 MG 1 tablet Orally Twice a day; Duration: 30 days 04/04/2023 Not-Taking Acetaminophen-Codeine 300-30 MG 1 tablet as needed Orally twice a day; Duration: 30 days As needed Take it for severe pain 09/03/2024 Not-Taking Benzonatate 100 MG 1 capsule as needed Orally Three times a day; Duration: 14 days take it as needed 09/08/2021 Not-Taking Ibuprofen 800 MG 1 tablet with food or milk as needed Orally every 8 hrs; Duration: 90 days 08/31/2022 Active Flonase Allergy Relief 50 MCG/ACT 1 spray in each nostril Nasally Once a day; Duration: 30 day(s) 05/26/2021 Not-Taking Meloxicam 15 MG 1 tablet Orally Once a day; Duration: 90 days 06/05/2024 Not-Taking Amoxicillin 500 MG 1 tablet Orally Three times a day; Duration: 5 days 01/03/2025 Not-Taking predniSONE 10 MG 1 tablet with food or milk Orally Once a day; Duration: 3 days TAKE ONE TABLET [address] SCAN, THEN TAKE ONE TABLET [address] SCAN, THEN TAKE ONE TABLET MORNING OF THE CT SCAN. 01/20/2025 Not-Taking BD PEN NEEDLES ULTRA-FINE once a week; Duration: 90 days 04/25/2025 Active Albuterol Sulfate HFA 108 (90 Base) MCG/ACT 2 puffs Inhalation every 6 hrs; Duration: 30 days use it as needed during weather change 05/26/2021 Active IGlucose Test Strips - as directed In Vitro everyday; Duration: 90 days one touch Ultra test strips for BS check give one box 02/21/2024 Active Restasis 0.05 % 1 drop into affected eye Ophthalmic Twice a day; Duration: 30 days 07/10/2023 Active diphenhydrAMINE HCl 50 MG 1 TABLET Orally Once a day; Duration: 1 days TAKE MORNING OF CT SCAN 01/20/2025 Active Acetaminophen 500 MG 1 tablet as needed Orally every 6 hrs; Duration: 30 days As needed 09/02/2022 Active TRAMADO AND LEXAPRO INCREASE RISK 08/31/2018 Active Aspirin Adult Low Strength 81 MG Oral take 1 tablet (81 mg) by oral route once daily 10/29/2018 Active Albuterol Sulfate (2.5 MG/3ML) 0.083% 3 milliters Inhalation every 6 hrs; Duration: 30 days use it as needed 01/12/2022 Active Zolpidem Tartrate 5 MG 1 tablet at bedtime as needed Orally Once a day; Duration: 30 days As needed 09/18/2024 Active Minoxidil 2.5 MG 1 tablet Orally Twice a day Active Dutasteride 0.5 MG 1 capsule Orally Once a day Active Social History Sex Assigned At : Social History Observation Description Sex Assigned At Female Section Notes: pt recieved covid vaccine an d booster. Encounters Encounter Location Date Provider Diagnosis [facility] [address] [place] [id number] 06/09/2025 Munir Hughes Hemoptysis R04.2 Assessments Encounter Date Diagnosis (ICD Code) Assessment Notes Treatment Notes Treatment Clinical Notes Section Notes 06/09/2025 Hemoptysis (ICD-10 - R04.2) due to the pt's symptoms and a family history of lung cancer, I instructed pt to go to the ER. She is in [place] right now so she will go to [facility]. S Plan Of Treatment Treatment Notes Assessment Notes Hemoptysis due to the pt's symp toms and a family history of lung cancer, I instructed pt to go to the ER. She is in [place] right now so she will go to [facility]. Next Appt Details Follow Up: 1-2 weeks, Reason : Provider Name:Munir Hughes, 06/13/2025 11:15:00 AM, [address] [place], [place], [id number], Progress Notes * FAUSTINO COATSDOB:1950 ( 75 yo F)Acc No.[id number]:06/09/2025 Patient: FAUSTINO BAUGH Provider: JENNIFER FRANKS :1950 A ge:75 Y S ex:Female Date:06/09/2025 Address:[address] [place], [place] [address], [place], [id number] Subjective: * Chief Complaints: * C ough * HPI: N ew/Follow-up Patient Consult: 75 year old female presents with c/o Cough. c/o Fatigue.? c/o Insomnia. c/o Joint pain. Denies : Abdominal pain. D enies : Allergic rhinitis. D enies : Bloating. D enies : Blocked ear. D enies : Blood in stool. D enies : Blood in urine. D enies : Blurry vision. D enies : Chest pain. D enies : Constipation. D enies : Diarrhea. D enies : Dizziness. D enies : Dysphagia. D enies : Dysuria. D enies : Earache. D enies : Fever. D enies : Headache. D enies : Lightheadedness. D enies : Loss of consciousness. D enies : Lower extremity edema. D enies : Nasal congestion. D enies : Nausea/Vomiting. D enies : Palpitations. D enies : Rash. D enies : Reflux. D enies : Shortness of breath. D enies : Sinusitis. D enies : Sore throat. D enies : Urinary symptoms. PHONE ENCOUNTER. PT IDENTIFIED BY NAME, BIRTHDATE AND VOICE.? PT WOKE UP VERY EARLY THIS MORNING WITH BAD BODYACHES, EXHAUSTION AND THEN LATER IN DAY COUGHED UP QUARTER SIZED AMOUNT OF BLOOD. SHE ALSO INFORMS ME THAT THE TRAZODONE FOR SLEEPING MAKES HER FEEL VERY BAD SO SHE STOPPED IT. * ROS: A ll Other Systems: Review of Systems (ROS) S HPI for details. ? * Medical History: * Surgical History: B ACK SURGERY- CERVICAL AND LUMBAR FUSION, HYSTERECTOMY, PDA CLOSURE Carpel Tunnel Surgery RT wrist 11/08/2023 * Hospitalization/Major Diagno stic Procedure: * Family History: F ather: , ARDS. M other: alive, HTN. S iblings: SISTER - HTN. * Social History: p t recieved covid vaccine and booster. [...] Notes to Pharmacist: TAKE MORNING OF CT SCANRestasis 0.05 % Emulsion 1 drop into affected eye Ophthalmic Twice a day BD PEN NEEDLES ULTRA-FINE 29 GAUGE, 12.7 MM once a week Ibuprofen 800 MG Tablet 1 tablet with food or milk as needed Orally every 8 hrs LORazepam 1 MG Tablet 1 TABLET Orally EVERY 12 HOURS IF NEEDED Omeprazole 20 MG Capsule Delayed Release 1 tablet 30 minutes before morning meal Oral Once a day , Notes to Pharmacist: TAke 1 Tablet by Oral route 1 time per day prnOzempic (0.25 or 0.5 MG/DOSE) 2 MG/3ML Solution Pen-injector 0.25mg Subcutaneous once weekly injection , Notes to Pharmacist: STOP TRULICITYLisinopril 5 MG Tablet 1 tablet Oral twice a day , Notes to Pharmacist: If BP >140/90 then take another tabletAtorvastatin Calcium 10 MG Tablet 1 tablet Orally Once a day traZODone HCl 50 MG Tablet 1 tablet at bedtime as needed Orally Once a day Taking Minoxidil 2.5 MG Tablet 1 tablet [...] to Pharmacist: TAKE MORNING OF CT SCANTaking Restasis 0.05 % Emulsion 1 drop into affected eye Ophthalmic Twice a day Taking BD PEN NEEDLES ULTRA-FINE 29 GAUGE, 12.7 MM once a week Taking Ibuprofen 800 MG Tablet 1 tablet with food or milk as needed Orally every 8 hrs Taking LORazepam 1 MG Tablet 1 TABLET Orally EVERY 12 HOURS IF NEEDED Taking Omeprazole 20 MG Capsule Delayed Release 1 tablet 30 minutes before morning meal Oral Once a day , Notes to Pharmacist: TAke 1 Tablet by Oral route 1 time per day prnTaking Ozempic (0.25 or 0.5 MG/DOSE) 2 MG/3ML Solution Pen-injector 0.25mg Subcutaneous once weekly injection , Notes to Pharmacist: STOP TRULICITYTaking Lisinopril 5 MG Tablet 1 tablet Oral twice a day , Notes to Pharmacist: If BP >140/90 then take another tabletTaking Atorvastatin Calcium 10 MG Tablet 1 tablet Orally Once a day Taking traZODone HCl 50 MG Tablet 1 tablet at bedtime as needed Orally Once a day Not-TakingFlonase Allergy Relief 50 MCG/ACT Suspension 1 [...] to Pharmacist: Take it for severe painNystatin 399858 UNIT/ML Suspension 4 mL Mouth/Throat Four times [...] times a day , Notes to Pharmacist: KATI:[id number], change dose to three timesDesoximetasone 0.25 % Cream External , Notes to Pharmacist: apply 1 Cream a thin layer to the affected area(s) by Topical route 2 times per day ; rub in gently and okcxgkscizVlznfoxiwi-BWCT-Ddliwbcl 50-325-40 MG Tablet Oral , Notes to [...] Pharmacist: Take it for severe painNot-Taking Nystatin [id number] UNIT/ML Suspension 4 mL Mouth/Throat Four times [...] times a day , Notes to Pharmacist: KATI:[id number], change dose to three timesNot-Taking Desoximetasone 0.25 % Cream External , Notes to Pharmacist: apply 1 Cream a thin layer to the affected area(s) by Topical route 2 times per day ; rub in gently and completelyNot-Taking Njyukiakph-LSRK-Bdtueejq 50-325-40 MG Tablet Oral , Notes to [...] dizzytraMADol HCl: rashno[Allergies Verified] Objective: * Vitals: Assessment: * Assessment: 1. H emoptysis - R04.2 (Primary) S Plan: * Treatment: * Procedure Codes: G 0467 [facility] visit, estab pt * Follow Up: 1 -2 weeks Care Plan: * Problems: * Billing Information: * Visit Code: 80077 Office Visit, Est Pt., Level 2. Modifiers: 93 * Procedure Codes: G0467 [facility] visit, estab pt. Care Plan Details* * Sign off status: Completed true * Provider: JENNIFER FRANKS Date: Generated for George peguero/Valentino/Klaus on: 04:25 PM EDT History and Physical Notes * HPI (History of Present Illness) Category Sub-Category Detail Notes Category Not es New/Follow-up Patient Consult PHONE ENCOUNTER. PT IDENTIFIED BY NAME, BIRTHDATE AND VOICE. PT WOKE UP VERY EARLY THIS MORNING WITH BAD BODYACHES, EXHAUSTION AND THEN LATER IN DAY COUGHED UP QUARTER SIZED AMOUNT OF BLOOD. SHE ALSO INFORMS ME THAT THE TRAZODONE FOR SLEEPING MAKES HER FEEL VERY BAD SO SHE STOPPED IT.
--- OUTSIDE RECORDS SUMMARY | 2025-06-09 16:24 | XMS_ITS | Encounter Summary ---
Author Organization [facility] Address [facility] [place] [address] Care Team Providers Care Air Operations Manager Name Role Phone Krystal Clifton MD Primary Care Provider [phone] Genevieve Kimball (Business Strategy Manager) Primary Care Provider Source Comments In the event this information is protected by the Federal Confidentiality of Alcohol and Drug AbusePatient Records regulations: The Federal rules restrict any use of the information to criminally investigate or prosecute any alcohol or drug abuse patient.[facility] Encounter Details Date Type Department Care Team (Late st Contact Info) Description 12/17/2013 Patient Msg Medical Records [address] [place] [id number] Provider, [facility] medication question Social History Tobacco Use Types Packs/Day Years Used Date Smoking Tobacco: Former Cigarettes 2 20 Comments:quit 25 years ago Alcohol Use Standard Drinks/Week Comments Yes 0 (1 standard drink = 0.6 oz pur e alcohol) a few times a year typically Comments No Sex and Gender Information Value Date Recorded Sex Assigned at Not on file Legal Sex Female 8:30 AM EST Gender Identity Not on file Sexual Orientation Not on file Occupation Industry Job Start Date Job End Date not currently working Not on file Not on file Not on file documented as of this encounter Plan of Treatment Not on file documented as of this encounter Visit Diagnoses Not on filedocumented in this encounter Care Teams Air Operations Manager Relationship Specialty Start Date End Date Krystal Clifton MD PCP - General Family Medicine 03/14/13 05/02/18 Genevieve Kimball (Business Strategy Manager) [address] [place] [address] PCP - General Family Medicine 05/03/18 documented as of this encounter
--- OUTSIDE RECORDS SUMMARY | 2025-06-09 16:24 | XMS_ITS | Patient Health Record ---
Author Organization [facility] [place] Address [address] [place] [address] Care Team Providers Care Turpentine Distiller Name Role Phone Munir Hughes Primary Care Provider Unavailabl e Reason For Referral No Information Medications Medication SIG (Take, Route, Frequency, Duration) Notes Start Date End Date Status Qvar RediHaler 40 MCG/ACT 1 puff Inhalation Once a day Sample, , * Lot #[id number], Expiration Date:09/0903/11/2019 Active Lisinopril 10 MG 1 tablet Orally Once a day; Duration: 30 day(s) Active Ambien 5 MG 1 tablet at bedtime Orally Once a day Active Nebulizer - as directed Active Ventolin HFA 108 (90 Base) MCG/ACT as directed Inhalation Active Albuterol Sulfate (2.5 MG/3ML) 0.083% 3 ml as needed Inhalation every 8 hrs Active Xanax 0.5 MG 1 tablet Orally Twice a day Active Immunizations Vaccine Route Administration Date Status Comme nts Flu, Unspecified Unknown 05/12/2018 Administered Pneumococcal [...] Coverage Start Date Coverage End Date [place]ICARE [place] [address] [place], [place] [id number] KahlilPatricia Self - patient is the insured [place]ICAID [place] [address] [address] DEPT OF [place], [place] [id number] Patricia Guillory Self - patient is the insured 6 Medical (General) History Medical History History ICD Code Chemical Pneumonia Surgical History Surgery Date(Month/Year) None since last visit Hospitalization History Reason Date(Month/Year) Chemical Poision 12/07
--- OUTSIDE RECORDS SUMMARY | 2025-06-09 16:24 | XMS_ITS | Encounter Summary ---
Author Organization [facility] Address [facility] [place] [address] Care Team Providers Care Soyfreeze Operator Name Role Phone Krystal Clifton MD Primary Care Provider [phone] Genevieve Kimball (Army Ranger) Primary Care Provider [phone] Source Comments In the event this information is protected by the Federal Confidentiality of Alcohol and Drug AbusePatient Records regulations: The Federal rules restrict any use of the information to criminally investigate or prosecute any alcohol or drug abuse patient.[facility] Encounter Details Date Type Department Care Team (Late st Contact Info) Description 12/02/2013 Patient Msg Medical Records [address] [place] [address] Provider, [facility]cf RE: Request an Appointment Social History Tobacco Use Types Packs/Day Years [...] on filedocumented in this encounter Care Teams Soyfreeze Operator Relationship Specialty Start Date End Date Krsytal Clifton MD PCP - General Family Medicine 03/14/13 05/02/18 Genevieve Kimball (Army Ranger) [address] [place] [address] PCP - General Family Medicine 05/03/18 documented as of this encounter
--- OUTSIDE RECORDS SUMMARY | 2025-06-09 16:24 | XMS_ITS | Clinical Summary ---
Author Organization [facility] Address [address] [place] [address] Care Team Providers Care Sugar Drier Name Role Phone DeanBlaire Kimberlee MERINO Primary Care Provider [phone] Munir Hughes PA-C Unavailable [phone] Allergies Active Allergy Reactions Criticality Noted Date Comments Codeine Nausea And Vomiting Low 06/10/2010 Other reaction(s): Vomiting Cyclobenzaprine Other (See Comments) 07/26/2023 Gabapentin Dizziness 12/13/2023 Iodides Anaphylaxis High 05/17/2016 Iodinated Contrast Media Anaphylaxis High 04/05/2010 Latex Hives,Rash-Mild 05/09/2011 Talc Rash-Mild 05/09/2011 Medications lisinopriL 5 mg tablet Take 5 mg by mouth in the morning and 5 mg before bedtime. 02/19/20 20 Active ibuprofen (MOTRIN) 800 mg tablet Take 800 mg by mouth every six to eight hours as needed. 11/24/19 21 Active omeprazole (PriLOSEC) 20 mg delayed release capsule Take 20 mg by mouth once daily, 30 min prior to meal. Active acetaminophen (TYLENOL) 500 mg tablet Take 2 tablets (1,000 mg) by mouth every eight hours. Do not take more than 3000 mg in a 24 hour period. 30 tablet 06/26/20 23 Active magnesium hydroxide (MILK OF MAGNESIA) 400 mg/5 mL suspension Take 30 mL by mouth once daily as needed for constipation. 06/27/20 23 Active RESTASIS 0.05 % ophthalmic dropperette 07/11/20 23 Active ondansetron 4 mg disintegrating tablet 07/10/20 Active phenazopyridine (PYRIDIUM) 200 mg tablet Take 1 tablet (200 mg) by mouth three times daily as needed for urination pain. 12 tablet 08/15/20 23 Active zolpidem (AMBIEN) 5 mg tablet every 24 hours. 12/06/19 24 Active minoxidiL (LONITEN) 2.5 mg tablet Take 0.5 tablets (1.25 mg) by mouth once daily for 14 days, THEN 1 tablet (2.5 mg) once daily. 187 tablet 04/04/20 25 Active dutasteride (AVODART) 0.5 mg capsule Take 1 capsule (0.5 mg) by mouth once daily. 90 capsule 4 04/04/20 25 Active lidocaine 4 % cream Apply to the bilateral hands and feet once to twice daily for pain 30 g 3 04/04/20 25 Active fluorouraciL (EFUDEX) 5 % cream Mix with calcipotriene and apply a thin layer twice daily on the face and scalp for 5 days 40 g 1 04/08/20 25 Active calcipotriene (DOVONEX) 0.005 % cream Mix with efudex and apply a thin layer twice daily on the face and scalp for 5 days 60 g 04/08/20 25 Active Active Problems Problem Noted Date Diagnosed Date Carpal tunnel syndrome on both sides 12/27/2023 Trigger index finger of right hand 12/27/2023 Other spondylosis, thoracic region 10/12/2023 Fall from standing 06/25/2023 Right hip pain 06/25/2023 Essential hypertension 06/21/2023 Spinal stenosis of lumbar re gion with neurogenic claudication 08/18/2022 Overview (10/12/2023): Added automatically from request for surgery [id number] Disorder of sacrum 07/28/2022 Overview (10/12/2023): Added automatically from request for surgery [id number] SCC (squamous cell carcinoma) 03/10/2022 Lumbosacral spondylosis without myelopathy 12/07 Overview (04/05/2022): Added automatically from request for surgery [id number] Chemical pneumonitis 09/30/2019 Gastroesophageal reflux disease without esophagi tis 09/30/2019 Laryngopharyngeal reflux (LPR) 09/30/2019 Chronic daily headache 09/17/2019 AK (actinic keratosis) 11/03/2014 Varicose veins of bilateral lower extremities with other complications 11/11/2010 Peripheral vertigo 04/15/2010 Vertigo of central origin 04/15/2010 Resolved Problems Problem Noted Date Diagnosed Date Resolved Date Fall, initial encounter 06/25/202302/2023 Encounters Date Type Department Care Team Description 04/04/2025 1:30 PM EDT Office Visit [facility] Dermatology [facility] [address] [place] [address] Alessandra Merino MD Frontal fibrosing alopecia (Primary Dx); Erythromelalgia; AK (actinic keratosis); Seborrheic keratoses; Angioma of skin; Multiple benign nevi; Diffuse photodamage of skin; Encounter for follow-up surveillance of skin cancer from Last 3 Months Immunizations Immunization Administration Dates Next Due Influenza (unspecified) - (S easonal Historic) 05/12/2018 Influenza, Trivalent, High D ose (P-free) (65 Yrs And Older) 04/22/2015 Influenza, quadrivalent, (vi al, multi-dose)(6 mos and older)(inject) - (Seasonal Historic) 06/23/2021,06/24/2019,05/28/2018 Moderna SARS-CoV-2 07/12/2021 Moderna SARS-CoV-2 Monovalen t Primary (12 yr and older, 100 mcg/0.5 mL dose)(historical) 10/01/2020,09/03/2020 Pfizer SARS-CoV-2 Monovalent Primary/Hx Booster(12 yr and older, 30 mcg/0.3 mL dose)(historical) 01/06/2022 Family History Medical History Relation Name Comments Alcohol abuse Brother Circulation Problems Father Darío Ashraf Deep vein thrombosis Father Darío Ashraf Emphysema Father Darío Ashraf Lung cancer Father Darío Ashraf ?called somethi ng else Varicose Veins Father Darío Ashraf Venous insufficiency Father Darío Ashraf Circulation Problems Mother Keisha Ashraf Deep vein thrombosis Mother Keisha Ashraf Diabetes Mother Keisha Ashraf Hypertension Mother Keisha Ashraf Melanoma Mother Keisha Ashraf Numerous Moles Mother Keisha Ashraf Skin cancer Mother Keisha Ashraf Varicose Veins Mother Keisha Ashraf Venous insufficiency Mother Keisha Ashraf Cancer Sister Marlee Circulation Problems Sister Marlee Melanoma Sister Marlee Numerous Moles Sister Marlee Skin cancer Sister Marlee Varicose Veins Sister Marlee Breast cancer Neg Hx Colon cancer Neg Hx Relation Name Status Comments Brother Father Darío Ashraf Mother Keisha Ashraf Alive Sister Marlee Alive Social History Tobacco Use Types Packs/Day Years Used Date Smoking Tobacco: Former Cigarettes 0.3 16 0 08/21/1968 - 08/21/1984 Smokeless Tobacco: Never Tobacco Cessation:Counseling Given: Not Answered Comments:Stopped smoking in 1984. 35 years ago Alcohol Use Standard Drinks/Week Comments No 0 (1 standard drink = 0.6 oz pur e alcohol) AUDIT-C Answer Date Recorded Q1: How often do you have a drink containing alc ohol? Never 07/05/2023 Average Number of Drinks Not on file 023 Frequency of Binge Drinking Not on file 06/21 Hunger Vital Sign Answer Date Recorded Within the past 12 months, y ou worried that your food would run out before you got the money to buy more. Patient declined Within the past 12 months, t he food you bought just didn't last and you didn't have money to get more. Patient declined 10/2022 PRAPARE - Transportation Answer Date Re corded In the past 12 months, has l ack of transportation kept you from medical appointments or from getting medications? Yes 10/2022 In the past 12 months, has l ack of transportation kept you from meetings, work, or from getting things needed for daily living? Yes 07/23/2023 Intimate Partner Violence Answer Date R ecorded Within the last year, have y ou felt unsafe in your home or been afraid of someone close to you? No 07/23/2023 Within the last year, have y ou been humiliated or emotionally abused in other ways by someone close to you? No 07/23/20 23 Within the last year, have y ou been kicked, hit, slapped, or otherwise physically hurt by someone close to you? No 10/2022 Within the past 12 months, h ave you been raped or forced to have any kind of sexual activity by someone? No 07/23/2023 Job Training Answer Date Recorded Do you have a hard time find ing work or another steady source of income? No 07/23/2023 Do you need help finding a [employer] center and/or job training? No 07/23/2023 Child or Elder Care Answer Date Recorde d In the last 4 weeks, did get ting home child care provider, elder care, or care for another person make it difficult to work, study, or get to medical visits? 2 Yes 07/23/2023 Virtual Care Answer Date Recorded How would you describe your comfort level with using technology (smart phones, mobile apps, patient portals) to access your health care? Slightly comfortable Do you have internet access in your home that would allow you to participate in a realtime video visit with your provider? No 07/23/2023 Do you have access to a lisset ce that would allow you to participate in virtual care with your provider, such as a laptop, computer, smart phone or tablet? Yes 07/23/2023 Comments No Sex and Gender Information Value Date Recorded Sex Assigned at Not on file Legal Sex Female 11:15 PM EST Gender Identity Not on file Sexual Orientation Not on file Last Filed Vital Signs Vital Sign Reading Time Taken Comments Blood Pressure 118/66 10/12/2023 1:01 PM EST Pulse 85 10/12/2023 1:01 PM EST Temperature 36.6 C (97.8 F) 11/01/2023 12:47 PM EDT Respiratory Rate 24 09/14/2023 1:15 PM EST Oxygen Saturation 95% 09/14/2023 1:15 PM EST Inhaled Oxygen Concentration - - Weight 81.6 kg (180 lb) 11/01/2023 12:47 PM EDT Height 165.1 cm (5' 5 ) 11/01/2023 12:47 PM EDT Body Mass Index 29.95 11/01/2023 12:47 PM EDT Plan of Treatment Upcoming Encounters Date Type Department Care Team (Late st Contact Info) Description 11/03/2025 1:10 PM EDT Office Visit [facility] D[facility]at[facility] Center Floor 1 Optical Glass [address] [place] [address] Dr [address] [place] [address] Pallavi Clark MD [address] [place] [address] Dr [id number] [facility] [place] [address] Health Maintenance Due Date Last Done Comments Hepatitis C Screening 1950 Annual Wellness Visit 1967 DTaP,Tdap,and Td Vaccines (1 - Tdap) 1968 Zoster Recombinant Vaccines (1 of 2) 1999 DEXA Bone Density Baseline 2014 Respiratory Syncytial Virus (RSV) or ages 60 years and older (1 - 1-dose 75+ series) 2024 COVID-19 Vaccine ( season) 2025 08/09/2022, 01/06/2022, 07/12/2021, Additional history exists Influenza Vaccine (#1) 2025 , 06/24/2019, 05/28/2018, Additional history exists Pneumococcal Vaccines 50years + Completed 10/18/2016, 02/22/2016, 04/22/2015 Mammogram Discontinued 2024, 11/20, 11/23/2020, Additional history exists Respiratory Syncytial Virus (RSV) ages 0 thru 19 months Aged Out No longer eligible based on patient's age to complete this topic Procedures Procedure Name Priority Date/Time Associated Diagnosis Comments QP CRYOTHERAPY SKIN LESION Routine 04/04/2025 5:07 PM EDT AK (actinic keratosis) from Last 3 Months Results * QP Cryotherapy Skin Lesion (04/04/2025 5:07 PM EDT) us Jake Crawford MD, PhD DERMATOLOGY QUICK PROCEDUR E ORDERABLES Final Result [address] [place] [address], [place] [phone] from Last 3 Months [place] [id number] [employer] MEDICARE [place] Advance Directives * Full Code (Latest Code Status on File) Date Activated Date Inactivated Comments 06/25/2023 7:12 PM 06/27/2023 7:13 PM Question Answer Comments Attending Consulted: SUN WILDER Care Teams Sugar Drier Relationship Specialty [place] [address] [facility] [place] [address] PCP - General Family Medicine 06/28/23 Munir Hughes PA-C [address] [place] [address] [place] [phone] Physician Shrimp Packer 07/27/23
--- OUTSIDE RECORDS SUMMARY | 2025-06-09 16:25 | XMS_ITS | Encounter Summary ---
Author Organization [facility] Address [facility] [place] [address] Care Team Providers Care Technical Solution Architect Name Role Phone Krystal Clifton MD Primary Care Provider [phone] Genevieve Kimball (Marzipan Maker) Primary Care Provider [phone] Source Comments In the event this information is protected by the Federal Confidentiality of Alcohol and Drug AbusePatient Records regulations: The Federal rules restrict any use of the information to criminally investigate or prosecute any alcohol or drug abuse patient.[facility] Encounter Details Date Type Department Care Team (Late st Contact Info) Description 09/09/2016 Patient Msg Medical Records [address] [place] [id number] Provider, [facility] Social History Tobacco Use Types Packs/Day Years Used Date Smoking Tobacco: Former Cigarettes 2 20 Smokeless Tobacco: Never Comments:quit 25 years ago Alcohol Use Standard [...] on file documented as of this encounter Functional Status * Are you deaf or do you have serious difficulty hearing? Answer Date of Assessment Author No 11/03/2014 2:48 PM EDT Palmira Ndiaye * Are you blind or do you have serious difficulty seeing, even when wearing glasses? Answer Date of Assessment Author No 11/03/2014 2:48 PM EDT Palmira Ndiaye * Do you have serious difficulty walking or climbing stairs? Answer Date of Assessment Author No 11/03/2014 2:48 PM EDT Palmira Ndiaye * Do you have difficulty dressing or bathing? Answer Date of Assessment Author No 11/03/2014 2:48 PM EDT Palmira Ndiaye * Because of a physical, mental, or emotional condition, do you have difficulty doing errands alone such as visiting a doctor's office or shopping? Answer Date of Assessment Author No 11/03/2014 2:48 PM EDT Palmira Ndiaye documented as of this encounter Mental Status * Because of a physical, mental, or emotional condition, do you have serious difficulty concentrating, remembering, or making decisions? Answer Entry Date Author No 11/03/2014 2:48 PM EDT Palmira Ndiaye documented in this encounter Plan of Treatment Not on file documented as of this encounter Visit Diagnoses Not on filedocumented in this encounter Care Teams Technical Solution Architect Relationship Specialty Start Date End Date Krystal Clifton MD PCP - General Family Medicine 03/14/13 05/02/18 Genevieve Kimball (Marzipan Maker) [address] [place] [phone] PCP - General Family Medicine 05/03/18 documented as of this encounter
--- OUTSIDE RECORDS SUMMARY | 2025-06-09 16:25 | XMS_ITS | CCD ---
Author Organization [facility] Care Team Providers Care Salesperson [employer] Name Role Phone DANIELLE HARE Referring Unavailable ODILIA, DANICA M Primary Care Unavailable CESPEDES, FLO Referring Unavailable ODILIA, DANICA M Primary Care Unavailable SELMA OCHOA Attending Unavailable ODILIA, DANICA M Referring Unavailable ODILIA, DANICA M Primary Care Unavailable YESI PAGAN Admitting Unavailable YESI PAGAN Attending Unavailable ODILIA, DANICA M Referring Unavailable ODILIA, DANICA M Primary Care Unavailable ODILIA, DANICA M Referring Unavailable ODILIA, DANICA M Primary Care Unavailable ODILIA, DANICA M Referring Unavailable ODILIA, DANCIA M Primary Care Unavailable ODILIA, DANICA M Referring Unavailable ODILIA, DANICA M Primary Care Unavailable ODILIA, DANICA M Referring Unavailable ODILIA, DANICA M Primary Care Unavailable CESPEDES, FLO Referring Unavailable ODILIA, DANICA M Primary Care Unavailable CESPEDES, FLO Referring Unavailable ODILIA, DANICA M Primary Care Unavailable ODILIA, DANICA M Referring Unavailable ODILIA, DANICA M Primary Care Unavailable ODILIA, DANICA M Referring Unavailable ODILIA, DANICA M Primary Care Unavailable ODILIA, DANICA M Referring Unavailable ODILIA, DANICA M Primary Care Unavailable ODILIA, DANICA M Referring Unavailable ODILIA, DANICA M Primary Care Unavailable ODILIA, DANICA M Referring Unavailable ODILIA, DANICA M Primary Care Unavailable JASMYN DIETZ Admitting Unavailable JASMYN DIETZ Attending Unavailable AKBAR PETIT Consulting Unavailable ROWENA ZHANG Primary Care Unavailable Allergies Allergy Classification Reported Allergen(s) Allergy Type Date of Onset Reaction(s) Facility (2 sources) Codeine; Translations: [CODEINE] Drug Allergy 0 [facility] (3 sources) Latex; Translations: [LATEX] Propensity to adverse reactions to drug (disorder) 2 [facility] (2 sources) Talc; Translations: [TALC] Drug Allergy 1 [facility] (3 sources) IODINATED CONTRAST MEDIA; Translations: [IODINATED CONTRAST MEDIA] Propensity to adverse reactions to drug (disorder) 0 [facility] Problems Active Problems Problem Classification Problem Date Documented Da te Episodic/Chronic Abdominal pain (1 source) Right lower quadrant pain; Translations: [Right lower quadrant pain] Onset: 01-02-2025 Episodic Anxiety disorders (2 sources) Generalized anxiety disorder; Translations: [Anxiety disorder, unspecified] Onset: 06-17-2024 Chronic Diabetes mellitus without complication (1 source) Prediabetes; Translations: [Prediabetes] Onset: 01-02-2025 Episodic Essential hypertension (2 sources) Essential (primary) hypertension; Translations: [Essential (primary) hypertension] Onset: 12-11-2023 Chronic Other female genital disorders (1 source) Premenstrual tension syndrome; Translations: [Premenstrual tension syndrome] Onset: 06-17-2024 Chronic Other lower respiratory disease (1 source) Other forms of dyspnea; Translations: [Other forms of dyspnea] Onset: 01-02-2025 Episodic Peripheral and visceral atherosclerosis (1 source) Peripheral vascular disease, unspecified; Translations: [Peripheral vascular disease, unspecified] Onset: 2024 Chronic Spondylosis; intervertebral disc disorders; other back problems (2 sources) Spinal stenosis, lumbar region with neurogenic claudication; Translations: [Backache] Onset: 02-06-2024 Episodic Unclassified (1 source) Spinal stenosis of lumbar region with neurogenic claudication [M48.062] Onset: 03-08-2024 Unclassified (1 source) Acute cough; Translations: [Acute cough] Onset: 01-02-2025 Urinary tract infections (1 source) Acute cystitis without hematuria; Translations: [Acute cystitis without hematuria] Onset: 01-28-2025 Episodic Past or Other Problems Problem Classification Problem Date Documented Da te Episodic/Chronic Nonspecific chest pain (1 source) Chest pain, unspecified; Translations: [Chest pain, unspecified] Onset: 06-17-2024 Episodic Other connective tissue disease (1 source) Other specified soft tissue disorders; Translations: [Other specified soft tissue disorders] Onset: 08-05-2024 Episodic Other connective tissue disease (1 source) Pain in right hand; Translations: [Pain in right hand] Onset: 06-17-2024 Episodic Other connective tissue disease (1 source) Pain in left hand; Translations: [Pain in left hand] Onset: 06-17-2024 Episodic Other gastrointestinal disorders (1 source) Other intra-abdominal and pelvic swelling, mass and lump; Translations: [Other intra-abdominal and pelvic swelling, mass and lump] Onset: 09-27-2024 Episodic Other injuries and conditions due to external causes (1 source) Personal history of (healed) traumatic fracture; Translations: [Personal history of (healed) traumatic fracture] Onset: 06-17-2024 Episodic Other screening for suspected conditions (not mental disorders or infectious disease) (3 sources) Encounter for screening mammogram for malignant neoplasm of breast; Translations: [Diagnostic imaging inconclusive due to excess body fat of patient] Onset: 08-15-2023 Episodic Residual codes; unclassified (1 source) Asymptomatic menopausal state; Translations: [Asymptomatic menopausal state] Onset: 06-17-2024 Episodic Results Test Name Value Interpretation Reference Range Facility Basic Metab w/rfx MGon 01-30 Anion gap [Moles/Vol] 9 mmol/L Normal -[address] [facility] Comment on above: Performed By: #### B GHANSHYAMX, NEAL #### [facility] [address] [place] [address] Damascener: Jerardo Mckee DO Calcium [Mass/Vol] 9.8 mg/dL Normal 8.6-10.[address] [facility] Comment on above: Performed By: #### B MPX, CDP #### [facility] [address] [place] [address] Damascener: Jerardo Mckee DO Chloride [Moles/Vol] 109 mmol/L High 98-[address] [facility] Comment on above: Performed By: #### B MPX, CDP #### [facility] [address] [place] [address] Damascener: Jerardo Mckee DO CO2 [Moles/Vol] 23 mmol/L Normal 20-[address] [facility] Comment on above: Performed By: #### B GHANSHYAMX, NEAL #### [facility] [address] [facility] [address] Damascener: Jerardo Mckee DO Creatinine [Mass/Vol] 0.5 mg/dL Low 0.7-1.[address] [facility] Comment on above: Performed By: #### B MPX, CDP #### [facility] [address] [facility] [place] [address] Damascener: Jerardo Mckee DO GFR/1.73 sq M.predicted among non-blacks MDRD (S/P/Bld) [Vol rate/Area] mL/min/{1.73_m2} Normal >[address] [facility] Comment on above: Result Comment: These results are not intended for use in patients <18 years of age. eGFR results are calculated without a race factor using the 2020 CKD-EPI equation. Careful clinical correlation is recommended, particularly when comparing to results calculated using previous equations. The CKD-EPI equation is less accurate in patients with extremes of muscle mass, extra-renal metabolism of creatine, excessive creatine ingestion, or following therapy that affects renal tubular secretion. Performed By: #### B GHANSHYAMX, CDP #### [facility] [address] [facility] [place] [address] Damascener: Jerardo Mckee DO Glucose [Mass/Vol] 125 mg/dL High 74-[address] [facility] Comment on above: Performed By: #### B MPX, CDP #### [facility] [address] [facility] [place] [address] Damascener: Jerardo Mckee DO Potassium [Moles/Vol] 4.1 mmol/L Normal 3.7-5.[address] [facility] Comment on above: Performed By: #### B MPX, CDP #### [facility] [address] [place] [address] Damascener: Jerardo Mckee DO Sodium [Moles/Vol] 141 mmol/L Normal 136-[address] [facility] Comment on above: Performed By: #### Poncho SOLORIO, CDP #### [facility] [address] [place] [address] Damascener: Jerardo Mckee DO Urea nitrogen [Mass/Vol] 15 mg/dL Normal 8-[address] [facility] Comment on above: Performed By: #### Poncho SOLORIO, CDP #### [facility] [address] [place] [address] Damascener: Jerardo Mckee DO CBC with Diffon 01-30-2025 Abs. Basophil 0.04 k/uL Normal 0.00-0.[address] [facility] Comment on above: Performed By: #### Poncho SOLORIO, NEAL #### [facility] [address] [place] [address]. [place] [address] Damascener: Jerardo Mckee DO Abs. Eosinophil <0.03 Normal 0.00-0.[address] [facility] Comment on above: Performed By: #### Poncho SOLORIO, NEAL #### [facility] [address] [place] [address] Damascener: Jerardo Mckee DO Abs.Imm.Granulocyte <0.03 Normal 0.00-0.[address] [facility] Comment on above: Performed By: #### Poncho SOLORIO, CDP #### [facility] [address] [place] [address] Damascener: Jerardo Mckee DO Abs.Neutrophil (Seg) 4.06 k/uL Normal 1.50-8.[address] [facility] Comment on above: Performed By: #### Poncho SOLORIO, CDP #### [facility] [address] [place] [address] Damascener: Jerardo Mckee DO Basophils/100 WBC (Bld) 1 % Normal 0-[address] [facility] Comment on above: Performed By: #### Poncho MPX, CDP #### [facility] [address] [place] [address] Damascener: Jerardo Mckee DO Eosinophils/100 WBC (Bld) 0 % Normal 0-[address] [facility] Comment on above: Performed By: #### B MPX, CDP #### [facility] [address] [facility] [place] [address] Damascener: Jerardo Mckee DO Erythrocyte distribution width (RBC) [Ratio] 13.6 % Normal 11.5-14.[address] [facility] Comment on above: Performed By: #### Poncho MPX, NEAL #### [facility] [facility] [place] [address] Damascener: Jeradro Mckee DO Hematocrit (Bld) [Volume fraction] 35.6 % Low 36.0-46.[address] [facility] Comment on above: Performed By: #### Poncho MPX, NEAL #### [facility] [facility] [place] [address] Damascener: Jerardo Mckee DO Hemoglobin (Bld) [Mass/Vol] 12.0 g/dL Normal 12.0-16.[address] [facility] Comment on above: Performed By: #### B MPX, CDP #### [facility] [facility] [place] [address] Damascener: Jerardo Mckee DO Immature granulocytes/100 WBC (Bld) 0 % Normal [address] [facility] Comment on above: Performed By: #### B MPX, CDP #### [facility] [place] [address] Damascener: Jerardo Mckee DO Lymphocytes (Bld) [#/Vol] 1.61 10*3/uL Normal 1.10-3.[address] [facility] Comment on above: Performed By: #### Poncho SOLORIO, CDP #### [facility] [address] [place] [address] Damascener: Jerardo Mckee DO Lymphocytes/100 WBC (Bld) 26 % Normal 24-[address] [facility] Comment on above: Performed By: #### Poncho SOLORIO, CDP #### [facility] [place] [address] Damascener: Jerardo Mckee DO MCH (RBC) [Entitic mass] 31.5 pg Normal 26.0-34.[address] [facility] Comment on above: Performed By: #### Poncho SOLORIO, NEAL #### [facility] [place] [address] Damascener: Jerardo Mckee DO MCHC (RBC) [Mass/Vol] 33.7 g/dL Normal 31.0-37.[address] [facility] Comment on above: Performed By: #### Poncho SOLORIO, CDP #### [facility] [address] [place] [address] Damascener: Jerardo Mckee DO MCV (RBC) [Entitic vol] 93.4 fL Normal 80.0-100.[address] [facility] Comment on above: Performed By: #### Poncho SOLORIO, CDP #### [facility] [place] [address] Damascener: Jerardo Mckee DO Monocytes (Bld) [#/Vol] 0.50 10*3/uL Normal 0.10-1.[address] [facility] Comment on above: Performed By: #### Poncho SOLORIO, CDP #### [facility] [address] [place] [address]. [place] [address] Damascener: Jerardo Mckee DO Monocytes/100 WBC (Bld) 8 % Normal 3-[address] [facility] Comment on above: Performed By: #### B MPX, CDP #### [facility] [address] [place] [address] Damascener: Jerardo Mckee DO Neutrophil (Seg) 65 % Normal 36-66 [facility] Comment on above: Performed By: #### B MPX, CDP #### [facility] [address] [facility] [place] [address] Damascener: Jerardo Mckee DO NRBC Automated 0.0 per 100 WBC Normal [address] [facility] Comment on above: Performed By: #### Poncho MORRISSEYX, CDP #### [facility] [facility] [place] [address] Damascener: Jerardo Mckee DO Platelet mean volume (Bld) [Entitic vol] 9.5 fL Normal 8.0-13.[address] [facility] Comment on above: Performed By: #### Poncho SOLORIO, CDP #### [facility] [address] [facility] [place] [address] Damascener: Jerardo Mckee DO Platelets (Bld) [#/Vol] 208 10*3/uL Normal 150-[address] [facility] Comment on above: Performed By: #### B MPX, CDP #### [facility] [address] [place] [address] Damascener: Jerardo Mckee DO RBC (Bld) [#/Vol] 3.81 10*6/uL Low 3.95-5.[address] [facility] Comment on above: Performed By: #### B MPX, CDP #### [facility] [address] [place] [address] Damascener: Jerardo Mckee DO WBC (Bld) [#/Vol] 6.2 10*3/uL Normal 3.5-11.[address] [facility] Comment on above: Performed By: #### B MPX, CDP #### [facility] [address] [place] [address] Damascener: Jerardo Mckee DO Cult,Urineon 01-30-2025 Cult,Urine Specimen Description .CLEAN CATCH URINE Culture ESCHERICHIA COLI >100,000 CFU/ML Report Status FINAL 01/30/2025 SUSCEPTIBILITY Organism ESCHERICHIA COLI Method LIDIA Ampicillin >=32 RESISTANT Cefazolin <=4 SUSCEPTIBLE Cefazolin sensitivity results can be used to predict the effectiveness of oral cephalosporins (eg. Cephalexin) in uncomplicated Urinary Tract Infections due to E. coli, K. pneumoniae, and P. mirabilis Ceftriaxone <=0.25 SUSCEPTIBLE ESBL NEGATIVE Gentamicin <=1 SUSCEPTIBLE Levofloxacin <=0.12 SUSCEPTIBLE Nitrofurantoin <=16 SUSCEPTIBLE Piperacillin/Tazobactam <=4 SUSCEPTIBLE Tobramycin <=1 SUSCEPTIBLE Trimethoprim/Sulfa >=320 RESISTANT Resistant [facility] Comment on above: Performed By: #### U RC #### [facility] [address] [facility] [place] [address] Damascener: Jerardo Mckee DO [address] [id number] Damascener: Jose L Sy MD Basic Metab w/rfx MGon 01-298 Anion gap [Moles/Vol] 9 mmol/L Normal 9-[address] [facility] Comment on above: Performed By: #### U DEVON UAX #### [facility] [address] [facility] [place] [address] Damascener: Jerardo Mckee DO Calcium [Mass/Vol] 9.7 mg/dL Normal 8.6-10.[address] [facility] Comment on above: Performed By: #### U DEVON UAX #### [facility] [address] [facility] [place] [address] Damascener: Jerardo Mckee DO Chloride [Moles/Vol] 107 mmol/L Normal 98-[address] [facility] Comment on above: Performed By: #### Dorian BRANDTO, UAX #### [facility] [address] [facility] [place] [address] Damascener: Jerardo Mckee DO CO2 [Moles/Vol] 25 mmol/L Normal 20-[address] [facility] Comment on above: Performed By: #### Dorian OSORIO UAX #### [facility] [address] [facility] [place] [address] Damascener: Jerardo Mckee DO Creatinine [Mass/Vol] 0.6 mg/dL Low 0.7-1.[address] [facility] Comment on above: Performed By: #### Dorian OSORIO UAX #### [facility] [address] [facility] [place] [address] Damascener: Jerardo Mckee DO GFR/1.73 sq M.predicted among non-blacks MDRD (S/P/Bld) [Vol rate/Area] mL/min/{1.73_m2} Normal >[address] [facility] Comment on above: Result Comment: These results are not intended for use in patients <18 years of age. eGFR results are calculated without a race factor using the 2020 CKD-EPI equation. Careful clinical correlation is recommended, particularly when comparing to results calculated using previous equations. The CKD-EPI equation is less accurate in patients with extremes of muscle mass, extra-renal metabolism of creatine, excessive creatine ingestion, or following therapy that affects renal tubular secretion. Performed By: #### Dorian OSORIO UAX #### [facility] [address] [facility] [place] [address] Damascener: Jerardo Mckee DO Glucose [Mass/Vol] 104 mg/dL High 74-[address] [facility] Comment on above: Performed By: #### MARY VELÁSQUEZ #### [facility] [address] [facility] [place] [address] Damascener: Jerardo Mckee DO Potassium [Moles/Vol] 4.6 mmol/L Normal 3.7-5.[address] [facility] Comment on above: Performed By: #### MARY VELÁSQUEZ #### [facility] [address] [place] [address] Damascener: Jearrdo Mckee DO Sodium [Moles/Vol] 141 mmol/L Normal 136-[address] [facility] Comment on above: Performed By: #### MARY VELÁSQUEZ #### [facility] [address] [facility] [place] [address] Damascener: Jerardo Mckee DO Urea nitrogen [Mass/Vol] 15 mg/dL Normal 8-[address] [facility] Comment on above: Performed By: #### MARY VELÁSQUEZ #### [facility] [place] [address] Damascener: Jerardo Mckee DO CBC with Diffon 01-29-2025 Abs. Basophil 0.03 k/uL Normal 0.00-0.[address] [facility] Comment on above: Performed By: #### MARY VELÁSQUEZ #### [facility] [address] [place] [address] Damascener: Jerardo Mckee DO Abs. Eosinophil <0.03 Normal 0.00-0.[address] [facility] Comment on above: Performed By: #### MARY VELÁSQUEZ #### [facility] [address] [place] [address] Damascener: Jerardo Mckee DO Abs.Imm.Granulocyte <0.03 Normal 0.00-0.[address] [facility] Comment on above: Performed By: #### MARY VELÁSQUEZ #### [facility] [address] [facility] [place] [address] Damascener: Jerardo Mckee DO Abs.Neutrophil (Seg) 4.90 k/uL Normal 1.50-8.[address] [facility] Comment on above: Performed By: #### MARY VELÁSQUEZ #### [facility] [address] [facility] [place] [address] Damascener: Jerardo Mckee DO Basophils/100 WBC (Bld) 0 % Normal 0-[address] [facility] Comment on above: Performed By: #### MARY VELÁSQUEZ #### [facility] [address] [facility] [place] [address] Damascener: Jerardo Mckee DO Eosinophils/100 WBC (Bld) 0 % Normal 0-[address] [facility] Comment on above: Performed By: #### MARY VELÁSQUEZ #### [facility] [place] [address] Damascener: Jerardo Mckee DO Erythrocyte distribution width (RBC) [Ratio] 13.7 % Normal 11.5-14.[address] [facility] Comment on above: Performed By: #### MARY VELÁSQUEZ #### [facility] [place] [address] Damascener: Jerardo Mckee DO Hematocrit (Bld) [Volume fraction] 38.2 % Normal 36.0-46.[address] [facility] Comment on above: Performed By: #### MARY VELÁSQUEZ #### [facility] [place] [address] Damascener: Jerardo Mckee DO Hemoglobin (Bld) [Mass/Vol] 12.7 g/dL Normal 12.0-16.[address] [facility] Comment on above: Performed By: #### MARY VELÁSQUEZ #### [facility] [place] [address] Damascener: Jerardo Mckee DO Immature granulocytes/100 WBC (Bld) 0 % Normal [address] [facility] Comment on above: Performed By: #### MARY VELÁSQUEZ #### [facility] [place] [address] Damascener: Jerardo Mckee DO Lymphocytes (Bld) [#/Vol] 1.79 10*3/uL Normal 1.10-3.[address] [facility] Comment on above: Performed By: #### MARY VELÁSQUEZ #### [facility] [address] [place] [address] Damascener: Jerardo Mckee DO Lymphocytes/100 WBC (Bld) 25 % Normal 24-[address] [facility] Comment on above: Performed By: #### MARY VELÁSQUEZ #### [facility] [address] [place] [address] Damascener: Jerardo Mckee DO MCH (RBC) [Entitic mass] 31.3 pg Normal 26.0-34.[address] [facility] Comment on above: Performed By: #### MARY VELÁSQUEZ #### [facility] [address] [place] [address] Damascener: Jerardo Mckee DO MCHC (RBC) [Mass/Vol] 33.2 g/dL Normal 31.0-37.[address] [facility] Comment on above: Performed By: #### MARY VELÁSQUEZ #### [facility] [address] [place] [address] Damascener: Jerardo Mckee DO MCV (RBC) [Entitic vol] 94.1 fL Normal 80.0-100.[address] [facility] Comment on above: Performed By: #### MARY VELÁSQUEZ #### [facility] [address] [facility] [place] [address] Damascener: Jerardo Mckee DO Monocytes (Bld) [#/Vol] 0.51 10*3/uL Normal 0.10-1.[address] [facility] Comment on above: Performed By: #### MARY VELÁSQUEZ #### [facility] [address] [place] [address] Damascener: Jerardo Mckee DO Monocytes/100 WBC (Bld) 7 % Normal 3-[address] [facility] Comment on above: Performed By: #### MARY VELÁSQUEZ #### [facility] [address] [facility] [place] [address] Damascener: Jerardo Mckee DO Neutrophil (Seg) 68 % High 36-66 [facility] Comment on above: Performed By: #### MARY VELÁSQUEZ #### [facility] [place] [address] Damascener: Jerardo Mckee DO NRBC Automated 0.0 per 100 WBC Normal [address] [facility] Comment on above: Performed By: #### MARY VELÁSQUEZ #### [facility] [place] [address] Damascener: Jerardo Mckee DO Platelet mean volume (Bld) [Entitic vol] 9.5 fL Normal 8.0-13.[address] [facility] Comment on above: Performed By: #### MARY VELÁSQUEZ #### [facility] [address] [facility] [place] [address] Damascener: Jerardo Mckee DO Platelets (Bld) [#/Vol] 207 10*3/uL Normal 150-[address] [facility] Comment on above: Performed By: #### Dorian OSORIO UAX #### [facility] [address] [facility] [place] [address] Damascener: Jerardo Mckee DO RBC (Bld) [#/Vol] 4.06 10*6/uL Normal 3.95-5.[address] [facility] Comment on above: Performed By: #### Dorian OSORIO UAX #### [facility] [address] [facility] [place] [address] Damascener: Jerardo Mckee DO WBC (Bld) [#/Vol] 7.3 10*3/uL Normal 3.5-11.[address] [facility] Comment on above: Performed By: #### Dorian OSORIO UAX #### [facility] [address] [facility] [place] [address] Damascener: Jerardo Mckee DO Glucose,Whole Bloodon 2024 Glucose [Mass/Vol] 155 mg/dL High 65-[address] [facility] Glucose [Mass/Vol] 107 mg/dL High 65-[address] [facility] CBC with Diffon 01-28-2025 Abs. Basophil 0.03 k/uL Normal 0.00-0.[address] [facility] Comment on above: Performed By: #### T OLAMIDE LOZADA CP, CDP #### [facility] [address] [facility] [place] [address] Damascener: Jerardo Mckee DO Abs. Eosinophil <0.03 Normal 0.00-0.[address] [facility] Comment on above: Performed By: #### T OLAMIDE LOZADA CP, CDP #### [facility] [address] [place] [address] Damascener: Jerardo Mckee DO Abs.Imm.Granulocyte 0.03 k/uL Normal 0.00-0.[address] [facility] Comment on above: Performed By: #### T ROPI, TSHX, CP, CDP #### [facility] [address] [facility] [place] [address] Damascener: Jerardo Mckee DO Abs.Neutrophil (Seg) 6.79 k/uL Normal 1.50-8.[address] [facility] Comment on above: Performed By: #### T ROPBrayan, TSHX, CP, CDP #### [facility] [address] [place] [address] Damascener: Jerardo Mckee DO Basophils/100 WBC (Bld) 0 % Normal 0-[address] [facility] Comment on above: Performed By: #### T ROPI, TSHX, CP, CDP #### [facility] [address] [place] [address] Damascener: Jerardo Mckee DO Eosinophils/100 WBC (Bld) 0 % Normal 0-[address] [facility] Comment on above: Performed By: #### Adan LOZADA, TSHX, CP, CDP #### [facility] [facility] [place] [address] Damascener: Jerardo Mckee DO Erythrocyte distribution width (RBC) [Ratio] 13.7 % Normal 11.5-14.[address] [facility] Comment on above: Performed By: #### T ROPBrayan, TSHX, CP, CDP #### [facility] [place] [address] Damascener: Jerardo Mckee DO Hematocrit (Bld) [Volume fraction] 38.9 % Normal 36.0-46.[address] [facility] Comment on above: Performed By: #### T ROPI, TSHX, CP, CDP #### [facility] [place] [address] Damascener: Jerardo Mckee DO Hemoglobin (Bld) [Mass/Vol] 13.3 g/dL Normal 12.0-16.[address] [facility] Comment on above: Performed By: #### Adan LOZADA, OLAMIDE, CP, CDP #### [facility] [address] [place] [address] Damascener: Jerardo Mckee DO Immature granulocytes/100 WBC (Bld) 0 % Normal [address] [facility] Comment on above: Performed By: #### Adan LOZADA, TSHX, CP, CDP #### [facility] [address] [place] [address] Damascener: Jerardo Mckee DO Lymphocytes (Bld) [#/Vol] 1.65 10*3/uL Normal 1.10-3.[address] [facility] Comment on above: Performed By: #### OLAMIDE BAUTISTA, CP, CDP #### [facility] [address] [place] [address] Damascener: Jerardo Mckee DO Lymphocytes/100 WBC (Bld) 18 % Low 24-[address] [facility] Comment on above: Performed By: #### Adan LOZADA, OLAMIDE, CP, CDP #### [facility] [address] [place] [address] Damascener: Jerardo Mckee DO MCH (RBC) [Entitic mass] 31.2 pg Normal 26.0-34.[address] [facility] Comment on above: Performed By: #### Adan LOZADA, TSHNona, CP, CDP #### [facility] [place] [address] Damascener: Jerardo Mckee DO MCHC (RBC) [Mass/Vol] 34.2 g/dL Normal 31.0-37.[address] [facility] Comment on above: Performed By: #### Adan LOZADA, TSHX, CP, CDP #### [facility] [address] [place] [address] Damascener: Jerardo Mckee DO MCV (RBC) [Entitic vol] 91.3 fL Normal 80.0-100.[address] [facility] Comment on above: Performed By: #### T KIERRA, TSHX, CP, CDP #### [facility] [address] [place] [address] Damascener: Jerardo Mckee DO Monocytes (Bld) [#/Vol] 0.58 10*3/uL Normal 0.10-1.[address] [facility] Comment on above: Performed By: #### Adan LOZADA, TSHX, CP, CDP #### [facility] [address] [place] [address] Damascener: Jerardo Mckee DO Monocytes/100 WBC (Bld) 6 % Normal 3-[address] [facility] Comment on above: Performed By: #### Adan LOZADA, TSHX, CP, CDP #### [facility] [address] [place] [address] Damascener: Jerardo Mckee DO Neutrophil (Seg) 76 % High 36-66 [facility] Comment on above: Performed By: #### Adan LOZADA, TSHX, CP, CDP #### [facility] [place] [address] Damascener: Jerardo Mckee DO NRBC Automated 0.0 per 100 WBC Normal [address] [facility] Comment on above: Performed By: #### Adan LOZADA, TSHX, CP, CDP #### [facility] [place] [address] Damascener: Jerardo Mckee DO Platelet mean volume (Bld) [Entitic vol] 9.3 fL Normal 8.0-13.[address] [facility] Comment on above: Performed By: #### Adan KIERRA, TSHX, CP, CDP #### [facility] [address] [facility] [place] [address] Damascener: Jerardo Mckee DO Platelets (Bld) [#/Vol] 230 10*3/uL Normal 150-[address] [facility] Comment on above: Performed By: #### T KIERRA TSHX, CP, CDP #### [facility] [address] [facility] [place] [address] Damascener: Jerardo Mckee DO RBC (Bld) [#/Vol] 4.26 10*6/uL Normal 3.95-5.[address] [facility] Comment on above: Performed By: #### OLAMIDE BAUTISTA, CP, CDP #### [facility] [address] [facility] [place] [address] Damascener: Jerardo Mckee DO WBC (Bld) [#/Vol] 9.1 10*3/uL Normal 3.5-11.[address] [facility] Comment on above: Performed By: #### OLAMIDE BAUTISTA, PETTY, CDP #### [facility] [address] [facility] [place] [address] Damascener: Jerardo Mckee DO CT ABDOMEN PELVIS WO CONTRAS Ton 01-28-2025 CT ABDOMEN PELVIS WO CONTRAST EXAMINATION: CT OF THE ABDOMEN AND PELVIS WITHOUT CONTRAST 01/28/2025 2:14 pm TECHNIQUE: CT of the abdomen and pelvis was performed without the administration of intravenous contrast. Multiplanar reformatted images are provided for review. Automated exposure control, iterative reconstruction, and/or weight based adjustment of the mA/kV was utilized to reduce the radiation dose to as low as reasonably achievable. COMPARISON: None. HISTORY: ORDERING SYSTEM PROVIDED HISTORY: RLQ Pain TECHNOLOGIST PROVIDED HISTORY: RLQ Pain Decision Support Exception - unselect if not a suspected or confirmed emergency medical condition->Emergency Medical Condition (MA) Reason for Exam: rt flank pain, urinary frequency FINDINGS: Lower Chest: Calcified granuloma in the inferior aspect of the right upper lobe. Atelectasis or scarring in the lung bases. Bronchiectasis in the lung bases. Atherosclerotic calcifications involving the thoracic aorta and left anterior descending artery. Cardiac chambers unremarkable in appearance. No pericardial effusion or pericardial thickening. Organs: Calcified granulomas involving the liver and spleen. No calcified gallstones are seen. Common bile duct is within normal limits. Adrenal glands and pancreas are normal in appearance. No dilatation of pancreatic duct. No left renal calculus, hydronephrosis, or renal lesion. No right renal calculus, hydronephrosis, or renal lesion. Atherosclerotic calcifications involving the abdominal aorta and its branch structures. Dilatation of the infrarenal abdominal aorta which measures a maximum 2.5 cm in AP. [id number]-[id number] atherosclerotic plaque involving the proximal superior mesenteric artery. GI/Bowel: Diverticulosis of the colon. Small-moderate volume fecal residuals in the colon. No evidence of bowel obstruction. The appendix is not seen. No pericecal inflammatory changes suggestive of appendicitis. Pelvis: No free fluid or free air identified. Mild urinary retention involving the bladder. Fat containing bilateral inguinal hernias. No adenopathy or mass. Peritoneum/Retroperiton eum: No retroperitoneal mass or adenopathy. Bones/Soft Tissues: Spondylosis of the lumbar and imaged thoracic spine. Indeterminate age compression fracture at the T12 level. at the L2-L3 level broad-based disc bulge and ligamentum flavum redundancy results in moderate to marked central canal stenosis. Probable marked central canal stenosis at the L4-5 level. IMPRESSION: No acute obstructive uropathy. Mild urinary retention involving the bladder. Diverticulosis without evidence of diverticulitis. Nonvisualization of the appendix. No pericecal inflammatory changes suggestive of appendicitis. Atherosclerotic disease. Dilatation of the infrarenal abdominal aorta. Follow-up CT of the abdomen in 5 years may be helpful to document stability of this finding. Additional findings noted above. Interpreted by: Hola Jarrett MD Signed by: Hola Jarrett MD 01/28/25 Final result Normal [facility] Comp Metabolic Profon 2024 Albumin [Mass/Vol] 4.3 g/dL Normal 3.5-5.[address] [facility] Comment on above: Performed By: #### T KIERRA, TSHX, CP, CDP #### [facility] [address] [facility] [place] [address] Damascener: Jerardo Mckee DO Alkaline Phos 68 U/L Normal 35-[address] [facility] Comment on above: Performed By: #### T ROPI, TSHX, CP, CDP #### [facility] [address] [facility] [place] [address] Damascener: Jerardo Mckee DO ALT [Catalytic activity/Vol] 24 U/L Normal 10-[address] [facility] Comment on above: Performed By: #### T ROPBrayan, TSHX, CP, CDP #### [facility] [address] [facility] [place] [address] Damascener: Jerardo Mckee DO Anion gap [Moles/Vol] 11 mmol/L Normal 9-[address] [facility] Comment on above: Performed By: #### T ROPBrayan, TSHX, CP, CDP #### [facility] [address] [facility] [place] [address] Damascener: Jerardo Mckee DO AST [Catalytic activity/Vol] 22 U/L Normal 10-[address] [facility] Comment on above: Performed By: #### T ROPBrayan, TSHX, CP, CDP #### [facility] [facility] [place] [address] Damascener: Jerardo Mckee DO Bilirubin [Mass/Vol] 0.5 mg/dL Normal 0.0-1.[address] [facility] Comment on above: Performed By: #### T ROPBrayan, TSHX, CP, CDP #### [facility] [address] [facility] [place] [address] Damascener: Jerardo Mckee DO Calcium [Mass/Vol] 10.3 mg/dL Normal 8.6-10.[address] [facility] Comment on above: Performed By: #### T ROPBrayan, TSHX, CP, CDP #### [facility] [address] [facility] [place] [address] Damascener: Jerardo Mckee DO Chloride [Moles/Vol] 101 mmol/L Normal 98-[address] [facility] Comment on above: Performed By: #### T ROPI, TSHX, CP, CDP #### [facility] [address] [facility] [place] [address] Damascener: Jerardo Mckee DO CO2 [Moles/Vol] 25 mmol/L Normal 20-[address] [facility] Comment on above: Performed By: #### T KIERRA, TSHX, CP, CDP #### [facility] [address] [facility] [place] [address] Damascener: Jerardo Mckee DO Creatinine [Mass/Vol] 0.7 mg/dL Normal 0.7-1.[address] [facility] Comment on above: Performed By: #### T ROPI, TSHX, CP, CDP #### [facility] [address] [facility] [place] [address] Damascener: Jerardo Mckee DO GFR/1.73 sq M.predicted among non-blacks MDRD (S/P/Bld) [Vol rate/Area] mL/min/{1.73_m2} Normal >[address] [facility] Comment on above: Result Comment: These results are not intended for use in patients <18 years of age. eGFR results are calculated without a race factor using the 2020 CKD-EPI equation. Careful clinical correlation is recommended, particularly when comparing to results calculated using previous equations. The CKD-EPI equation is less accurate in patients with extremes of muscle mass, extra-renal metabolism of creatine, excessive creatine ingestion, or following therapy that affects renal tubular secretion. Performed By: #### T ROPI, TSHX, CP, CDP #### [facility] [address] [facility] [place] [address] Damascener: Fanelly, Jerardo, DO Glucose [Mass/Vol] 131 mg/dL High 74-[address] [facility] Comment on above: Performed By: #### T KIERRA, TSHX, CP, CDP #### [facility] [address] [place] [address] Damascener: Jerardo Mckee DO Potassium [Moles/Vol] 4.3 mmol/L Normal 3.7-5.[address] [facility] Comment on above: Performed By: #### T ROPI, TSHX, CP, CDP #### [facility] [address] [place] [address] Damascener: Jerardo Mckee DO Protein [Mass/Vol] 7.1 g/dL Normal 6.6-8.[address] [facility] Comment on above: Performed By: #### Adan LOZADA, TSHX, CP, CDP #### [facility] [address] [place] [address] Damascener: Jerardo Mckee DO Sodium [Moles/Vol] 137 mmol/L Normal 136-[address] [facility] Comment on above: Performed By: #### Adan LOZADA, TSHX, CP, CDP #### [facility] [address] [place] [address] Damascener: Jerardo Mckee DO Urea nitrogen [Mass/Vol] 21 mg/dL Normal 8-[address] [facility] Comment on above: Performed By: #### T ISISI, TSHX, CP, CDP #### [facility] [address] [place] [address] Damascener: Jerardo Mckee DO TSH w/reflex to FT4on 2024 Thyroid Stim. Horm. 0.73 uIU/mL Normal 0.27-4.20 [facility] Comment on above: Performed By: #### T KIERRA, TSHX, CP, CDP #### [facility] [address] [place] [address] Damascener: Jerardo Mckee DO Troponinon 01-28-2025 Troponin, High Sens 8 ng/L Normal 0-[address] [facility] Comment on above: Result Comment: High Sensitivity Troponin values cannot be compared with other Troponin methodologies. Performed By: #### T ROPI, TSHX, CP, CDP #### [facility] [place] [address] Damascener: Jerardo Mckee DO UA w/Reflex Cultureon 2024 Bilirubin, SemiQt,Ur Negative Normal NEG [facility] Comment on above: Performed By: #### U MICAO, UAX #### [facility] [address] [place] [address] Damascener: Jerardo Mckee DO Blood, Urine TRACE Abnormal NEG [facility] Comment on above: Performed By: #### U MICAO, UAX #### [facility] [address] [place] [address] Damascener: Jerardo Mckee DO Clarity (U) Cloudy Abnormal CLEAR [facility] Comment on above: Performed By: #### U MICAO, UAX #### [facility] [address] [place] [address] Damascener: Jerardo Mckee DO Color (U) Dark Yellow Abnormal YEL [facility] Comment on above: Performed By: #### U MICAO, UAX #### [facility] [address] [place] [address] Damascener: Jerardo Mckee DO Glucose Ql (U) Negative Normal NEG [facility] Comment on above: Performed By: #### U MICAO, UAX #### [facility] [address] [place] [address] Damascener: Jerardo Mckee DO Ketones Ql (U) Negative Normal NEG [facility] Comment on above: Performed By: #### Dorian OSORIO UAX #### [facility] [address] [place] [address] Damascener: Jerardo Mckee DO Leukocyte esterase Test strip Ql (U) MOD Abnormal NEG [facility] Comment on above: Performed By: #### Dorian OSORIO UAX #### [facility] [address] [place] [address] Damascener: Jerardo Mckee DO Nitrite,Ur Positive Abnormal NEG [facility] Comment on above: Performed By: #### Dorian OSORIO UAX #### [facility] [address] [place] [address] Damascener: Jerardo Mckee DO PH,Ur 5.5 Normal 5.0-8.[address] [facility] Comment on above: Performed By: #### Dorian OSORIO UAX #### [facility] [address] [place] [address] Damascener: Jerardo Mckee DO Protein Ql (U) Negative Normal NEG [facility] Comment on above: Performed By: #### Dorian OSORIO UAX #### [facility] [address] [place] [address] Damascener: Jerardo Mckee DO Spec. Eugene,Ur 1.013 Normal 1.000-1.030 [facility] Comment on above: Performed By: #### Dorian OSORIO UAX #### [facility] [address] [place] [address] Damascener: Jerardo Mckee DO Urobilinogen,Ur Normal Normal 0.0-1.[address] [facility] Comment on above: Performed By: #### U MICAO, UAX #### [facility] [address] [facility] [place] [address] Damascener: Jerardo Mckee DO Urinalysis,Microon 5 Bacteria MANY Abnormal NONE [facility] Comment on above: Performed By: #### Dorian OSORIO, UAX #### [facility] [address] [place] [address] Damascener: Jerardo Mckee DO Casts 0 TO 2 Abnormal NONE [facility] Comment on above: Performed By: #### CADE VELÁSQUEZX #### [facility] [address] [place] [address] Damascener: Jerardo Mckee DO Epithelial cells LM Ql (Urine sed) 0 TO [address] [facility] Comment on above: Performed By: #### CADE VELÁSQUEZX #### [facility] [place] [address] Damascener: Jerardo Mckee DO Urine RBC's 0 TO 2 Normal R02 [facility] Comment on above: Performed By: #### Dorian OSORIO UAX #### [facility] [place] [address] Damascener: Jerardo Mckee DO Urine WBC's TOO NUMEROUS TO COUNT Abnormal R05 [facility] Comment on above: Performed By: #### Dorian OSORIO UAX #### [facility] [address] [place] [address] Damascener: Jerardo Mckee DO US EXT NON-VASC RT LIMITEDon 01-05-2025 US EXT NON-VASC RT LIMITED US EXT NON-VASC RT LIMITED US EXT NON-VASC RT LIMITED Clinical history:Right inguinal pain mass Comparison: None. Findings: Real-time sonographic evaluation the region of concern demonstrates ill-defined heterogeneous lesions some may represent enlarged or abnormal lymph nodes one measuring 3.4 x 0.5 x 1.3 cm another 0.8 x 0.5 x 0.8 cm. Impression: Indeterminate lesions in the region of concern as above. CT with contrast recommended for further assessment. Finalized by Elijah Peterson MD on 01/05/2025 8:50 AM Normal [facility] CBC WITH AUTO DIFFERENTIALon 01-02-2025 BASOPHILS ABSOLUTE COUNT (10*3/UL) BY AUTOMATED COUNT 0.0 10*3/uL Normal 0.0-0.2 [facility] Comment on above: Performed By: #### C BCA ####[facility] ([facility])[address], [place] [address] VIR BASOPHILS RELATIVE PERCENT BY AUTOMATED COUNT 0.9 % Normal [facility] Comment on above: Performed By: #### C BCA ####[facility] ([facility])[address], [place] [address] VIR CELLAVISION DIFFERENTIAL TYPE AUTOMATED DIFFERENTIAL Normal [facility] Comment on above: Performed By: #### C BCA ####[facility] ([facility])[address], [place] [address] VIR Eosinophils (Bld) [#/Vol] 0.0 10*3/uL Normal 0.0-0.4 [facility] Comment on above: Performed By: #### C BCA ####[facility] ([facility])[address], [place] [address] VIR EOSINOPHILS RELATIVE PERCENT BY AUTOMATED COUNT 0.0 % Normal [facility] Comment on above: Performed By: #### C BCA ####[facility] ([facility])[address], [place] [address] VIR Erythrocyte distribution width (RBC) [Ratio] 14.0 % Normal 11.5-15 [facility] Comment on above: Performed By: #### C BCA ####[facility] ([facility])[address], [place] [address] VIR Hematocrit (Bld) [Volume fraction] 39.9 % Normal 35-47 [facility] Comment on above: Performed By: #### C BCA ####[facility] ([facility])[address], [place] [address] VIR Hemoglobin (Bld) [Mass/Vol] 13.5 g/dL Normal 11.7-15.5 [facility] Comment on above: Performed By: #### C BCA ####[facility] ([facility])[address], [place] [address] VIR LYMPHOCYTES ABSOLUTE COUNT (10*3/UL) BY AUTOMATED COUNT 1.3 10*3/uL Normal 1.0-3.5 [facility] Comment on above: Performed By: #### C BCA ####[facility] ([facility])[address], [place] [address] VIR LYMPHOCYTES RELATIVE PERCENT BY AUTOMATED COUNT 24.9 % Normal [facility] Comment on above: Performed By: #### C BCA ####[facility] ([facility])[address], [place] [address] VIR MCH (RBC) [Entitic mass] 30.6 pg Normal 27-34 [facility] Comment on above: Performed By: #### C BCA ####[facility] ([facility])[address], [place] [address] VIR MCHC (RBC) [Mass/Vol] 33.7 g/dL Normal 32-36 [facility] Comment on above: Performed By: #### C BCA ####[facility] ([facility])[address], [place] [address] VIR MCV (RBC) [Entitic vol] 91 fL Normal 80-100 [facility] Comment on above: Performed By: #### C BCA ####[facility] ([facility])[address], [place] [address] VIR MONOCYTES ABSOLUTE COUNT (10*3/UL) BY AUTOMATED COUNT 0.4 10*3/uL Normal 0.0-0.9 [facility] Comment on above: Performed By: #### C BCA ####[facility] ([facility])[address], [place] [address] VIR MONOCYTES RELATIVE PERCENT BY AUTOMATED COUNT 7.6 % Normal [facility] Comment on above: Performed By: #### C BCA ####[facility] ([facility])[address], [place] [address] VIR NEUTROPHILS ABSOLUTE COUNT BY AUTOMATED COUNT 3.4 10*3/uL Normal 1.5-6.6 [facility] Comment on above: Performed By: #### C BCA ####[facility] ([facility])[address], [place] [address] VIR NEUTROPHILS RELATIVE PERCENT BY AUTOMATED COUNT 66.6 % Normal [facility] Comment on above: Performed By: #### C BCA ####[facility] ([facility])[address], [place] [address] VIR Platelet mean volume (Bld) [Entitic vol] 8.0 fL Normal 7-12 [facility] Comment on above: Performed By: #### C BCA ####[facility] ([facility])[address], [place] [address] VIR Platelets (Bld) [#/Vol] 192 10*3/uL Normal 150-450 [facility] [facility] Comment on above: Performed By: #### C BCA ####[facility] ([facility])[address], [place] [address] VIR RBC COUNT 4.40 X10E12/L Normal 3.8-5.2 [facility] Comment on above: Performed By: #### C BCA ####[facility] ([facility])[address], [place] [address] VIR WBC (Bld) [#/Vol] 5.1 10*3/uL Normal 4-11 [facility] Comment on above: Performed By: #### C BCA ####[facility] ([facility])[address], [place] [address] VIR COMPREHENSIVE METABOLIC PANE Terry 01-02-2025 Albumin [Mass/Vol] 4.2 g/dL Normal 3.2-5.3 [facility] Comment on above: Performed By: #### C MP ####[facility] ([facility])[address], [place] [address] VIR ALP [Catalytic activity/Vol] 55 U/L Normal 39-130 [facility] Comment on above: Performed By: #### C MP ####[facility] ([facility])[address], [place] [address] VIR ALT [Catalytic activity/Vol] 24 U/L Normal <=31 [facility] Comment on above: Performed By: #### C MP ####[facility] ([facility])[address], [place] [address] VIR Anion gap [Moles/Vol] 7 mmol/L Normal 5-15 [facility] Comment on above: Performed By: #### C MP ####[facility] ([facility])[address], [place] [address] VIR AST [Catalytic activity/Vol] 21 U/L Normal <=41 [facility] Comment on above: Performed By: #### C MP ####[facility] ([facility])[address], [place] [address] VIR Bilirubin [Mass/Vol] 0.6 mg/dL Normal 0.3-1.2 [facility] Comment on above: Performed By: #### C MP ####[facility] ([facility])[address], [place] [address] VIR Calcium [Mass/Vol] 9.8 mg/dL Normal 8.5-10.5 [facility] Comment on above: Performed By: #### C MP ####[facility] ([facility])[address], [place] [address] VIR Chloride [Moles/Vol] 106 mmol/L Normal 98-109 [facility] Comment on above: Performed By: #### C MP ####[facility] ([facility])[address], [place] [address] VIR CO2 [Moles/Vol] 28 mmol/L Normal 22-32 [facility] Comment on above: Performed By: #### C MP ####[facility] ([facility])[address], [place] [address] VIR Creatinine [Mass/Vol] 0.60 mg/dL Normal 0.40-1.00 [facility] Comment on above: Result Comment: METH OD TRACEABLE TO IDMS STANDARD Performed By: #### C MP ####[facility] ([facility])[address], [place] [address] VIR EGFR (CKD-EPI) NON-RACE DEPENDENT >^90 Normal >=60 [facility] Comment on above: Result Comment: Repo rted eGFR is based on the CKD-EPI 2020 equation that does not use a race coefficient. Performed By: #### C MP ####[facility] ([facility])[address], [place] [address] VIR Glucose [Mass/Vol] 111 mg/dL High 65-99 [facility] Comment on above: Performed By: #### C MP ####[facility] ([facility])[address], [place] [address] VIR Potassium [Moles/Vol] 3.9 mmol/L Normal 3.5-5.0 [facility] Comment on above: Performed By: #### C MP ####[facility] ([facility])[address], [place] [address] VIR Protein [Mass/Vol] 6.9 g/dL Normal 6.0-8.0 [facility] Comment on above: Performed By: #### C MP ####[facility] ([facility])[address], [place] [address] VIR Sodium [Moles/Vol] 141 mmol/L Normal 134-146 [facility] Comment on above: Performed By: #### C MP ####[facility] ([facility])[address], [place] [address] VIR Urea nitrogen [Mass/Vol] 20 mg/dL Normal 5-27 [facility] Comment on above: Performed By: #### C MP ####[facility] ([facility])[address], [place] [address] VIR FOLATEon 01-02-2025 FOLIC ACID >^25.0 Normal >5.8 [facility] Comment on above: Performed By: #### F HOME ####[facility] ([facility])[address], [place] [address] VIR HEMOGLOBIN A1Con 01-02-2025 Glucose [Mass/Vol] 148 mg/dL Normal [facility] Comment on above: Performed By: #### H A1C ####[facility] ([facility])[address], [place] [address] VIR HbA1c (Bld) [Mass fraction] 6.8 % High 4.4-5.6 [facility] Comment on above: Result Comment: ADA Guidelines Result HgbA1c Normal : less than 5.7 % Prediabetes : 5.7 % to 6.4 % Diabetes : > 6.4 % Use with caution in patients with abnormal hemoglobin variants as the half-life of red blood cells and in vivo glycation rates are affected. Performed By: #### H A1C ####[facility] ([facility])[address], [place] [address] VIR LIPID PROFILEon 01-02-2025 Cholesterol [Mass/Vol] 223 mg/dL High 150-200 [facility] Comment on above: Performed By: #### L IPR ####[facility] ([facility])[address], [place] [address] VIR Cholesterol in HDL [Mass/Vol] 70 mg/dL Normal >39 [facility] Comment on above: Result Comment: HDL <40 mg/dL - High Risk HDL > or = 40mg/dL- Desirable HDL >60 mg/dL - Negative Risk Performed By: #### L IPR ####[facility] ([facility])[address] [facility] [address], [place] [address] VIR Cholesterol in LDL [Mass/Vol] 140 mg/dL High <130 [facility] Comment on above: Result Comment: LDL <100 mg/dL - Desirable LDL >160 mg/dL - High Risk Performed By: #### L IPR ####[facility] ([facility])[address] [facility] [address], [place] [address] VIR CHOLESTEROL:HDL 3.2 Normal 1.0-5.0 [facility] Comment on above: Performed By: #### L IPR ####[facility] ([facility])[address] [facility] [address], [place] [address] VIR Triglyceride [Mass/Vol] 66 mg/dL Normal 27-150 [facility] Comment on above: Performed By: #### L IPR ####[facility] ([facility])[address] [facility] [address], [place] [address] VIR VERY LOW LIPOPROTEIN 13 mg/dL Normal 0-30 [facility] Comment on above: Performed By: #### L IPR ####[facility] ([facility])[address] [facility] [address], [place] [address] VIR TSH WITH REFLEXon 01-02-2025 TSH 0.87 uIU/mL Normal 0.49-4.67 [facility] Comment on above: Performed By: #### T SHR ####[facility] ([facility])[address], [place] [address] VIR URINALYSISon 01-02-2025 Bilirubin Ql (U) Negative Normal Negative [facility] Comment on above: Performed By: #### U A ####[facility] ([facility])[address], [place] [address] VIR BLOOD/HGB Negative Normal Negative [facility] Comment on above: Performed By: #### U A ####[facility] ([facility])[address], [place] [address] VIR Color (U) Yellow Normal Yellow, Colorless [facility] Comment on above: Performed By: #### U A ####[facility] ([facility])[address], [place] [address] VIR Glucose Ql (U) Negative Normal Negative [facility] Comment on above: Performed By: #### U A ####[facility] ([facility])[address], [place] [address] VIR Ketones Ql (U) Negative Normal Negative [facility] Comment on above: Performed By: #### U A ####[facility] ([facility])[address], [place] [address] VIR Leukocyte esterase Test strip Ql (U) Moderate Abnormal Negative [facility] Comment on above: Performed By: #### U A ####[facility] ([facility])[address], [place] [address] VIR MUCOUS Present Abnormal None [facility] Comment on above: Performed By: #### U A ####[facility] ([facility])[address], [place] [address] VIR Nitrite Ql (U) Negative Normal Negative [facility] Comment on above: Performed By: #### U A ####[facility] ([facility])[address], [place] [address] VIR PH,URINE 6.5 Normal 5.0-8.5 [facility] Comment on above: Performed By: #### U A ####[facility] ([facility])[address], [place] [address] VIR Protein Ql (U) Negative Normal Negative [facility] Comment on above: Performed By: #### U A ####[facility] ([facility])[address], [place] [address] VIR R.B.CELLS <^1 Normal 0-5 [facility] Comment on above: Performed By: #### U A ####[facility] ([facility])[address], [place] [address] VIR Specific gravity (U) [Rel density] 1.021 Normal 1.003-1.035 [facility] Comment on above: Performed By: #### U A ####[facility] ([facility])[address], [place] [address] VIR SQUAMOUS EPITHELIUM 2 Normal 0-5 [facility] Comment on above: Performed By: #### U A ####[facility] ([facility])[address], [place] [address] VIR TURBIDITY Clear Normal Clear [facility] Comment on above: Performed By: #### U A ####[facility] ([facility])[address], [place] [address] VIR UROBILINOGEN <1.1 eu/dL Normal <1.1 eu/dL [facility] Comment on above: Performed By: #### U A ####[facility] ([facility])[address], [place] [address] VIR W.B.CELLS 4 Normal 0-5 [facility] Comment on above: Performed By: #### U A ####[facility] ([facility])[address], [place] [address] VIR URINE CULTUREon 01-02-2025 Bacteria identified Cx Nom (U) CULTURE RESULTS STREPTOCOCCUS AGALACTIAE (GROUP B) 50,000-100,000 CFU/mL Streptococcus agalactiae (Group B) Normal [facility] Comment on above: Order Comment: Along with <10,000 CFU/mL Normal [facility]. Performed By: #### N AIFA #### [facility] ([id number]) [address] [place] [address] #### THYR, 92800-4, CBCA, 17820-8, 1987-12, HA1C, CMP #### [facility] ([id number]) [address] [place] [address] VITAMIN B12on 01-02-2025 Cobalamin (Vitamin B12) [Mass/Vol] 360 pg/mL Normal 180-914 [facility] Comment on above: Performed By: #### N AIFA #### [facility] ([id number]) [address] [place] [address] #### THYR, 62035-6, CBCA, 12219-6, 1987-12, HA1C, CMP #### [facility] ([id number]) [address] [place] [address] XR CHEST 2 VWSon 01-02-2025 XR CHEST 2 VWS XR CHEST 2 VWS EXAM: XR CHEST 2 VWS CLINICAL INFORMATION: Dyspnea on exertion; Acute cough. COMPARISON: 04/22/2023 FINDINGS: There is a benign calcified granuloma in the right lung. No focal consolidations. There is no pulmonary edema or pleural effusions. Heart size is within normal limits. Changes of cervical spinal fusion are noted. IMPRESSION: 1. No acute cardiopulmonary disease. Finalized by Sukhdev Landon MD on 01/02/2025 4:16 PM Normal [facility] US EXT NON-VASC RT LIMITEDon 09-28-2024 US EXT NON-VASC RT LIMITED US EXT NON-VASC RT LIMITED US EXT NON-VASC RT LIMITED Clinical history:Right groin mass palpable mass Comparison: None. Findings: Real-time sonographic evaluation of concern demonstrates multiple mildly prominent lymph nodes largest measuring 1.8 x 2.0 x 1.1 cm. Impression: Multiple mildly prominent lymph nodes in the region of concern are most likely reactive or inflammatory. Continued clinical examination and follow-up to document stability or resolution is recommended to exclude underlying or occult process. Finalized by Elijah Peterson MD on 09/28/2024 8:06 AM Normal [facility] Antinuclear AB, HE-p Substra te, (SAWYER by IFA)on 06-17-2024 Antinuclear Ab, HEp-2 Substrate, S Negative Normal <1:80 (Negative) [facility] Comment on above: Result Comment: NOTE ADDITIONAL INFORMATION Method: Immunofluorescence using HEp-2 cellular substrate. Test Performed by: [place] [address] Damascener: Shital Harrington Ph.D.; CLIA# [id number] Performed By: #### N AIFA #### [facility] ([id number]) [address] [place] [address] #### THYR, 30280-7, CBCA, 76077-3, 1987-12, HA1C, CMP #### [facility] ([id number]) [address] [place] [address], [address] [place] [address] CBC AND AUTO DIFFon 06-17-20 ABSOLUTE BASOPHIL 0.0 X10E9/L Normal 0.0-0.2 [facility] Comment on above: Performed By: #### N AIFA #### [facility] ([id number]) [address] [place] [address] #### THYR, 03856-7, CBCA, 31792-8, 1987-12, HA1C, CMP #### [facility] ([id number]) [address] [facility], [address] [place] [address] ABSOLUTE NEUTROPHIL 3.7 X10E9/L Normal 1.5-6.6 [facility] Comment on above: Performed By: #### N AIFA #### [facility] ([id number]) [address] [place] [address] #### THYR, 54291-5, CBCA, 68801-7, 1987-12, HA1C, CMP #### [facility] ([id number]) [address] [facility], [address] [place] [address] Basophils/100 WBC (Bld) 0.6 % Normal [facility] Comment on above: Performed By: #### N AIFA #### [facility] ([id number]) [address] [place] [address] #### THYR, 58990-6, CBCA, , 1987-12, HA1C, CMP #### [facility] ([id number]) [address] [place] [address], [address] [place] [address] Eosinophils (Bld) [#/Vol] 0.0 10*3/uL Normal 0.0-0.4 [facility] Comment on above: Performed By: #### N AIFA #### [facility] ([id number]) [address] [place] [address] #### THYR, 45797-9, CBCA, , 1987-12, HA1C, CMP #### [facility] ([id number]) [address] [place] [address], [address] [place] [address] Eosinophils/100 WBC (Bld) 0.0 % Normal [facility] Comment on above: Performed By: #### N AIFA #### [facility] ([id number]) [address] [place] [address] #### THYR, 32361-1, CBCA, , 1987-12, HA1C, CMP #### [facility] ([id number]) [address] [place] [address] Erythrocyte distribution width (RBC) [Ratio] 13.5 % Normal 11.5-15.0 [facility] Comment on above: Performed By: #### N AIFA #### [facility] ([id number]) [address] [place] [address] #### THYR, 67772-3, CBCA, , 1987-12, HA1C, CMP #### [facility] ([id number]) [address] [facility], [address] [place] [address] Hematocrit (Bld) [Volume fraction] 39.9 % Normal 35-47 [facility] Comment on above: Performed By: #### N AIFA #### [facility] ([id number]) [address] [place] [address] #### THYR, 55710-5, CBCA, , 1987-12, HA1C, CMP #### [facility] ([id number]) [address] [place] [address] Hemoglobin (Bld) [Mass/Vol] 13.4 g/dL Normal 11.7-15.5 [facility] Comment on above: Performed By: #### N AIFA #### [facility] ([id number]) [address] [place] [address] #### THYR, 19981-1, CBCA, , 1987-12, HA1C, CMP #### [facility] ([id number]) [address] [place] [address] Lymphocytes (Bld) [#/Vol] 2.0 10*3/uL Normal 1.0-3.5 [facility] Comment on above: Performed By: #### N AIFA #### [facility] ([id number]) [address] [place] [address] #### THYR, 00946-3, CBCA, , 1987-12, HA1C, CMP #### [facility] ([id number]) [address] [place] [address], [address] [place] [address] Lymphocytes/100 WBC (Bld) 32.4 % Normal [facility] Comment on above: Performed By: #### N AIFA #### [facility] ([id number]) [address] [place] [address] #### THYR, 60737-2, CBCA, , 1987-12, HA1C, CMP #### [facility] ([id number]) [address] [place] [address], [address] [place] [address] MCH (RBC) [Entitic mass] 31.1 pg Normal 27-34 [facility] Comment on above: Performed By: #### N AIFA #### [facility] ([id number]) [address] [place] [address] #### THYR, 22555-1, CBCA, , 1987-12, HA1C, CMP #### [facility] ([id number]) [address] [place] [address], [address] [place] [address] MCHC (RBC) [Mass/Vol] 33.6 g/dL Normal 32-36 [facility] Comment on above: Performed By: #### N AIFA #### [facility] ([id number]) [address] [place] [address] #### THYR, 56456-2, CBCA, , 1987-12, HA1C, CMP #### [facility] ([id number]) [address] [place] [address] MCV (RBC) [Entitic vol] 93 fL Normal 80-100 [facility] Comment on above: Performed By: #### N AIFA #### [facility] ([id number]) [address] [place] [address] #### THYR, 17463-1, CBCA, 42574-2, 1987-12, HA1C, CMP #### [facility] ([id number]) [address], [address] [place] [address] Monocytes (Bld) [#/Vol] 0.4 10*3/uL Normal 0-0.9 [facility] Comment on above: Performed By: #### N AIFA #### [facility] ([id number]) [address] [place] [address] #### THYR, 70253-5, CBCA, 77945-1, 1987-12, HA1C, CMP #### [facility] ([id number]) [address] [place] [address] Monocytes/100 WBC (Bld) 6.1 % Normal [facility] Comment on above: Performed By: #### N AIFA #### [facility] ([id number]) [address] [place] [address] #### THYR, 07159-9, CBCA, 46196-3, 1987-12, HA1C, CMP #### [facility] ([id number]) [address] [place] [address] Neutrophils/100 WBC (Bld) 60.9 % Normal [facility] Comment on above: Performed By: #### N AIFA #### [facility] ([id number]) [address] [place] [address] #### THYR, 40287-2, CBCA, 04856-6, 1987-12, HA1C, CMP #### [facility] ([id number]) [address] [place] [address] Platelet mean volume (Bld) [Entitic vol] 8.5 fL Normal 7-12 [facility] Comment on above: Performed By: #### N AIFA #### [facility] ([id number]) [address] [place] [address] #### THYR, 08949-4, CBCA, , 1987-12, HA1C, CMP #### [facility] ([id number]) [address] [place] [address] Platelets (Bld) [#/Vol] 196 10*3/uL Normal 150-450 [facility] Comment on above: Performed By: #### N AIFA #### [facility] ([id number]) [address] [place] [address] #### THYR, 64808-8, CBCA, , 1987-12, HA1C, CMP #### [facility] ([id number]) [address] [place] [address] RBC COUNT 4.30 X10E12/L Normal 3.80-5.20 [facility] Comment on above: Performed By: #### N AIFA #### [facility] ([id number]) [address] [place] [address] #### THYR, 25534-7, CBCA, 13340-9, 1987-12, HA1C, CMP #### [facility] ([id number]) [address] [place] [address] WBC (Bld) [#/Vol] 6.1 10*3/uL Normal 4.0-11.0 [facility] Comment on above: Performed By: #### N AIFA #### [facility] ([id number]) [address] [place] [address] #### THYR, 78628-9, CBCA, 73170-1, 1987-12, HA1C, CMP #### [facility] ([id number]) [address] [place] [address] COMPREHENSIVE METABOLIC PANE [facility] 06-17-2024 Albumin [Mass/Vol] 4.4 g/dL Normal 3.2-5.3 [facility] Comment on above: Performed By: #### N AIFA #### [facility] ([id number]) [address] [place] [address] #### THYR, 18382-7, CBCA, 72796-5, 1987-12, HA1C, CMP #### [facility] ([id number]) [address] [facility], [address] [place] [address] ALP [Catalytic activity/Vol] 74 U/L Normal 39-130 [facility] Comment on above: Performed By: #### N AIFA #### [facility] ([id number]) [address] [place] [address] #### THYR, 80029-5, CBCA, , 1987-12, HA1C, CMP #### [facility] ([id number]) [address] [facility], [address] [place] [address] ALT [Catalytic activity/Vol] 16 U/L Normal 0-31 [facility] Comment on above: Performed By: #### N AIFA #### [facility] ([id number]) [address] [place] [address] #### THYR, 71530-1, CBCA, 94901-4, 1987-12, HA1C, CMP #### [facility] ([id number]) [address], [address] [place] [address] Anion gap [Moles/Vol] 10 mmol/L Normal 5-15 [facility] Comment on above: Performed By: #### N AIFA #### [facility] ([id number]) [address] [place] [address] #### THYR, 23960-5, CBCA, 11423-4, 1987-12, HA1C, CMP #### [facility] ([id number]) [address] [facility] [facility], [address] [place] [address] AST [Catalytic activity/Vol] 21 U/L Normal 0-41 [facility] Comment on above: Performed By: #### N AIFA #### [facility] ([id number]) [address] [place] [address] #### THYR, 72515-5, CBCA, 73230-0, 1987-12, HA1C, CMP #### [facility] ([id number]) [address] [facility] [facility], [address] [place] [address] Bilirubin [Mass/Vol] 0.5 mg/dL Normal 0.3-1.2 [facility] Comment on above: Performed By: #### N AIFA #### [facility] ([id number]) [address] [place] [address] #### THYR, 51009-1, CBCA, 83755-6, 1987-12, HA1C, CMP #### [facility] ([id number]) [address] [facility] [facility], [address] [place] [address] Calcium [Mass/Vol] 9.9 mg/dL Normal 8.5-10.5 [facility] Comment on above: Performed By: #### N AIFA #### [facility] [facility] ([id number]) [address] [place] [address] #### THYR, 05000-6, CBCA, 99339-5, 1987-12, HA1C, CMP #### [facility] ([id number]) [address], [address] [place] [address] Chloride [Moles/Vol] 104 mmol/L Normal 98-109 [facility] Comment on above: Performed By: #### N AIFA #### [facility] ([id number]) [address] [place] [address]8819 #### THYR, 02961-9, CBCA, 87357-6, 1987-12, HA1C, CMP #### [facility] ([id number]) [address] [facility] [facility], [address] [place] [address] CO2 [Moles/Vol] 23 mmol/L Normal 22-32 [facility] Comment on above: Performed By: #### N AIFA #### [facility] ([id number]) [address] [place] [address] 99206 #### THYR, 76914-5, CBCA, 15450-4, 1987-12, HA1C, CMP #### [facility] ([id number]) [address] [facility], [address] [place] [address] Creatinine [Mass/Vol] 0.58 mg/dL Normal 0.40-1.00 [facility] Comment on above: Result Comment: METH OD TRACEABLE TO IDMS STANDARD Performed By: #### N AIFA #### [facility] ([id number]) [address] [place] [address]2007 #### THYR, 75244-0, CBCA, 01477-3, 1987-12, HA1C, CMP #### [facility] ([id number]) [address] [facility], [address] [place] [address] eGFR (CKD-EPI) NON-RACE DEPENDENT >90 Normal >59 [facility] Comment on above: Result Comment: Reported eGFR is based on the CKD-EPI 2020 equation that does not use a race coefficient. Performed By: #### N AIFA #### [facility] ([id number]) [address] [place] [address]293 #### THYR, 43454-1, CBCA, 47566-9, 1987-12, HA1C, CMP #### [facility] ([id number]) [address] [facility], [address] [place] [address] Glucose [Mass/Vol] 151 mg/dL High 65-99 [facility] Comment on above: Performed By: #### N AIFA #### [facility] ([id number]) [address] [place] [address]60 #### THYR, 89213-6, CBCA, 40667-0, 1987-12, HA1C, CMP #### [facility] ([id number]) [address] [facility], [address] [place] [address] Potassium [Moles/Vol] 3.8 mmol/L Normal 3.5-5.0 [facility] Comment on above: Performed By: #### N AIFA #### [facility] ([id number]) [address] [place] [address]86 #### THYR, 08093-8, CBCA, 05385-7, 1987-12, HA1C, CMP #### [facility] ([id number]) [address] [facility], [address] [place] [address] Protein [Mass/Vol] 6.8 g/dL Normal 6.0-8.0 [facility] Comment on above: Performed By: #### N AIFA #### [facility] ([id number]) [address] [place] [address] 52674 #### THYR, 40647-7, CBCA, , 1987-12, HA1C, CMP #### [facility] ([id number]) [address], [address] [place] [address] Sodium [Moles/Vol] 137 mmol/L Normal 134-146 [facility] Comment on above: Performed By: #### N AIFA #### [facility] ([id number]) [address] [place] [address] 90480 #### THYR, 10413-9, CBCA, , 1987-12, HA1C, CMP #### [facility] ([id number]) [address], [address] [place] [address] Urea nitrogen [Mass/Vol] 15 mg/dL Normal 5-27 [facility] Comment on above: Performed By: #### N AIFA #### [facility] ([id number]) [address] [place] [address] #### THYR, 51763-4, CBCA, , 1987-12, HA1C, CMP #### [facility] ([id number]) [address], [address] [place] [address] CRP [Mass/Vol]on 06-17-2024 C REACTIVE PROTEIN 0.1 mg/dL Normal 0.000-0.744 [facility] Comment on above: Performed By: #### N AIFA #### [facility] ([id number]) [address] [place] [address] 76091 #### THYR, 17267-5, CBCA, , 1987-12, HA1C, CMP #### [facility] ([id number]) [address], [address] [place] [address] DEXA SCAN CENTRAL SKELETALon 06-17-2024 DEXA SCAN CENTRAL SKELETAL DEXA SCAN CENTRAL SKELETAL CLINICAL INFORMATION: PMS (premenstrual syndrome); History of fracture; Postmenopausal. TECHNIQUE: Dual X-ray Absorptiometry (DXA) was performed. COMPARISON: 06/16/2022 FINDINGS: LUMBAR SPINE (L1-L4): BMD is 0.994 gm/cm2. Increase of 3.6% since prior. T-score is -0.5. LEFT FEMORAL NECK: BMD is 0.690 gm/cm2. T-score is -1.4. LEFT TOTAL FEMUR: BMD is 0.842 gm/cm2. Decrease of 3.7% since prior. T-score is -0.8. RIGHT FEMORAL NECK: BMD is 0.753 gm/cm2. T-score is -0.9. RIGHT TOTAL FEMUR: BMD is 0.908 gm/cm2. Unchanged since prior. T-score is -0.3. The estimated 10-year probability for a major osteoporotic fracture (utilizing FRAX) is 18% and for a hip fracture is 8.8%. IMPRESSION: The exam is considered to be osteopenic by the National Osteoporosis Foundation guidelines. Recommend consideration for initiation of therapy. WHO CLASSIFICATION: Normal: T-score -1.0 or above Osteopenia: T-score -1.1 to < 2.5 Osteoporosis: T-score -2.5 or lower Secondary causes of bone loss should be evaluated if clinically indicated since the etiology of low BMD cannot be determined by BMD measurement alone. The current National Osteoporosis Foundation guide recommends treating patients with FRAX ten year risk scores of greater than or equal to 3% for hip fracture or greater than or equal to 20% for major osteoporotic fracture, to reduce their fracture risk. Finalized by Jesus Almazan MD on 06/17/2024 3:54 PM Normal [facility] ESR Photometric method (Bld) [Velocity]on 06-17-2024 ESR, ERYTHROCYTE SEDIMENTATION RATE 9 mm/h Normal 0-30 [facility] Comment on above: Performed By: #### N AIFA #### [facility] ([id number]) [address] [place] [address] #### THYR, 80352-5, CBCA, 33580-0, 1988-5, HA1C, CMP #### [facility] ([id number]) [address] [place] [address], [address] [place] [address] HGB A1C (GLYCO-HGB)on 2023 Glucose [Mass/Vol] 131 mg/dL Normal [facility] Comment on above: Performed By: #### N AIFA #### [facility] ([id number]) [address] [place] [address] 77178 #### THYR, 20858-4, CBCA, , 1987-12, HA1C, CMP #### [facility] ([id number]) [address] [place] [address], [address] [place] [address] HbA1c (Bld) [Mass fraction] 6.2 % High 4.4-5.6 [facility] Comment on above: Result Comment: NOTE ADA Guidelines Result HgbA1c Normal : less than 5.7 % Prediabetes : 5.7 % to 6.4 % Diabetes : > 6.4 % Use with caution in patients with abnormal hemoglobin variants as the half-life of red blood cells and in vivo glycation rates are affected. Performed By: #### N AIFA #### [facility] ([id number]) [address] [place] [address] 13177 #### THYR, 01420-1, CBCA, 29983-3, 1987-12, HA1C, CMP #### [facility] ([id number]) [address] [place] [address], [facility] [address] [place] [address] Lipid 1996 panelon 4 Cholesterol [Mass/Vol] 245 mg/dL High 150-200 [facility] Comment on above: Performed By: #### N AIFA #### [facility] ([id number]) [address] [place] [address] 14105 #### THYR, 88725-4, CBCA, 27018-0, 1987-12, HA1C, CMP #### [facility] ([id number]) [address] [facility], [address] [place] [address] Cholesterol in HDL [Mass/Vol] 58 mg/dL Normal >39 [facility] Comment on above: Result Comment: HDL <40 mg/dL - High Risk HDL > or = 40mg/dL- Desirable HDL >60 mg/dL - Negative Risk Performed By: #### N AIFA #### [facility] ([id number]) [address] [place] [address] #### THYR, 95822-3, CBCA, 55530-1, 1987-12, HA1C, CMP #### [facility] ([id number]) [facility]ly [facility], [facility] [facility], [address] [place] [address] Cholesterol in LDL [Mass/Vol] 145 mg/dL High <130 [facility] Comment on above: Result Comment: LDL <100 mg/dL - Desirable LDL >160 mg/dL - High Risk Performed By: #### N AIFA #### [facility] ([id number]) [address] [place] [address] 80319 #### THYR, 93131-9, CBCA, 20433-3, 1987-12, HA1C, CMP #### [facility] ([id number]) [address] [facility], [address] [place] [address] Cholesterol in VLDL [Mass/Vol] 42 mg/dL High 0-30 [facility] Comment on above: Performed By: #### N AIFA #### [facility] ([id number]) [address] [place] [address] 04330 #### THYR, 07456-0, CBCA, 81562-8, 1987-12, HA1C, CMP #### [facility] ([id number]) [address] [facility], [address] [place] [address] CHOLESTEROL:HDL 4.2 Normal 1.0-5.0 [facility] Comment on above: Performed By: #### N AIFA #### [facility] ([id number]) [address] [place] [address] 66485 #### THYR, 73790-8, CBCA, 79700-1, 1987-12, HA1C, CMP #### [facility] ([id number]) [address] [facility], [address] [place] [address] Triglyceride [Mass/Vol] 212 mg/dL High 27-150 [facility] Comment on above: Performed By: #### N AIFA #### [facility] ([id number]) [address] [place] [address] 62366 #### THYR, 25068-9, CBCA, 88751-7, 1987-12, HA1C, CMP #### [facility] ([id number]) [address] [facility], [address] [place] [address] THYROID PROFILEon 06-17-2024 Free T4 [Mass/Vol] 1.23 ng/dL Normal 0.61-1.60 [facility] Comment on above: Performed By: #### N AIFA #### [facility] ([id number]) [address] [place] [address] 40702 #### THYR, 02168-1, CBCA, 71382-4, 1987-12, HA1C, CMP #### [facility] ([id number]) [address] [facility], [address] [place] [address] TSH 0.94 uIU/mL Normal 0.49-4.67 [facility] Comment on above: Performed By: #### N AIFA #### [facility] ([id number]) [address] [place] [address] #### THYR, 13785-0, CBCA, 88405-5, 1988-5, HA1C, CMP #### [facility] ([id number]) [address] [facility], [address] [place] [address] XR HAND LT MIN 3 VWSon 06-17 XR HAND LT MIN 3 VWS XR HAND LT MIN 3 VWS Clinical history: Left hand pain. Left hand: 06/17/2024 COMPARISON: 12/06/2010 FINDINGS: 3 views the hand were obtained. Degenerative changes are present, most prominently at the first carpometacarpal joint. Some chondrocalcinosis and marginal new bone formation are present at the second and third MCPs and there is joint space narrowing and marginal new bone formation at the interphalangeal joints. Some chondrocalcinosis is evident at the radiocarpal region. IMPRESSION: No acute osseous abnormality. No findings indicative of an inflammatory arthropathy. Degenerative changes, greatest at the first carpometacarpal joint. Finalized by Laith White MD on 06/17/2024 7:27 PM Normal [facility] XR HAND RT MIN 3 VWSon 06-17 XR HAND RT MIN 3 VWS XR HAND RT MIN 3 VWS Clinical history: Hand pain. Right hand: 06/17/2024 COMPARISON: 12/06/2010 FINDINGS: 3 views of the hand were obtained. There is joint space narrowing at the interphalangeal joints greatest at the second and third digits. Some erosive changes are present at the articular surface. Ossification of soft tissues is present around the third PIP. There is no erosion or focal irregularity acutely. First digit degenerative changes are prominent. Chondrocalcinosis is present at the ulnar carpal region. 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 No acute osseous abnormality or findings indicative of an inflammatory arthropathy. Finalized by Laith White MD on 06/17/2024 7:25 PM Normal [facility] MAMM SCREENING BILATERAL W C hand potter 2024 MAMM SCREENING BILATERAL W CAD MAMM SCREENING BILATERAL W CAD EXAM: MAMM SCREENING BILATERAL W CAD, 2024 12:30 PM CLINICAL INDICATIONS: Screening, Visit for screening mammogram COMPARISON: 12/08/2021 TECHNIQUE: Bilateral digital tomosynthesis MLO and CC views of the breasts were obtained, with creation of synthetic 2D views. Computer aided detection was utilized. FINDINGS: There are scattered areas of fibroglandular density. There are no suspicious masses, calcifications, or areas of architectural distortion. IMPRESSION: No mammographic evidence of malignancy. BI-RADS: BI-RADS 1 - Negative Recommendation: Routine screening mammogram in 1 year. Finalized by Jason Keating MD on 2024 12:56 PM 1 b MAMM 1 YR Normal [facility] Lipid 1996 panelon 4 Cholesterol [Mass/Vol] 191 mg/dL Normal 150-200 [facility] Comment on above: Performed By: #### 2 4331-1, TSHR #### [facility] ([id number]) [address], [address] [place] [address] Cholesterol in HDL [Mass/Vol] 53 mg/dL Normal >39 [facility] Comment on above: Result Comment: HDL <40 mg/dL - High Risk HDL > or = 40mg/dL- Desirable HDL >60 mg/dL - Negative Risk Performed By: #### 2 4331-1, TSHR #### [facility] ([id number]) [address], [address] [place] [address] Cholesterol in LDL [Mass/Vol] 107 mg/dL Normal <130 [facility] Comment on above: Result Comment: LDL <100 mg/dL - Desirable LDL >160 mg/dL - High Risk Performed By: #### 2 4331-1, TSHR #### [facility] ([id number]) [address], [facility] [address] [place] [address] Cholesterol in VLDL [Mass/Vol] 31 mg/dL High 0-30 [facility] Comment on above: Performed By: #### 2 4331-1, TSHR #### [facility] ([id number]) [address], [facility] [address] [place] [address] CHOLESTEROL:HDL 3.6 Normal 1.0-5.0 [facility] Comment on above: Performed By: #### 2 4331-1, TSHR #### [facility] ([id number]) [address] [address] [place] [address] Triglyceride [Mass/Vol] 153 mg/dL High 27-150 [facility] Comment on above: Performed By: #### 2 4331-1, TSHR #### [facility] ([id number]) [address] [address] TSH WITH REFLEXon 12-11-2023 TSH 1.15 uIU/mL Normal 0.49-4.67 [facility] Comment on above: Performed By: #### 2 4331-1, TSHR #### [facility] ([id number]) [address] [address] URINE CULTUREon 08-15-2023 Bacteria identified Cx Nom (U) CULTURE RESULTS <10,000 ORGANISMS/ML NORMAL URO GENITAL IVANIA Normal [facility] Comment on above: Performed By: #### 6 30-4 #### [facility] ([id number]) [address] [address] Encounters Encounter Date Encounter Type Care Provider Facility Start: 01-28-2025 End: 01-30-2025 Evaluation and management of inpatient JASMYN [facility] Start: 01-16-2025 End: 01-16-2025 ambulatory [facility] Start: 01-02-2025 End: 01-02-2025 ambulatory [facility] Start: 01-02-2025 End: 01-02-2025 ambulatory [facility] Start: 09-27-2024 End: 09-27-2024 ambulatory [facility] Start: 08-05-2024 End: 08-05-2024 ambulatory [facility] Start: 06-17-2024 End: 06-17-2024 ambulatory [facility] Start: 06-17-2024 End: 06-17-2024 ambulatory [facility] Start: 2024 End: 2024 ambulatory [facility] Start: 03-08-2024 End: 03-08-2024 ambulatory YESI Parham [facility] Start: 02-06-2024 End: 02-06-2024 ambulatory SELMA Kimberlee OCHOA [facility] Start: 12-11-2023 End: 12-11-2023 ambulatory [facility] Start: 08-15-2023 End: 08-15-2023 ambulatory [facility] Payers Date Payer Category Payer Medicare [id number] 2017 Medicaid [id number] 1950 Unknown [id number] .16.8 40.1.209608.3.579.2.1285 1950 Unknown [id number] .16.8 40.1.863990.3.579.2.1285 1949 Unknown [id number] .16.8 40.1.376216.3.579.2.1285 1949 Unknown [id number] 2.16.84 0.1.936321.3.579.2.1285 1949 Unknown [id number] 2.16. 840.1.607645.3.579.2.1285 1949 Unknown [id number] 2.16. 840.1.467275.3.579.2.1285 1949 Unknown [id number] 2.16. 840.1.883365.3.579.2.1285 1949 Unknown [id number] 2.16. 840.1.822929.3.579.2.1285 1949 Unknown [id number] 2.16. 840.1.797825.3.579.2.1285 1949 Unknown [id number] 2.16.8 40.1.366449.3.579.2.1285 1949 Unknown [id number] 2.16.8 40.1.037909.3.579.2.1285 1949 Unknown [id number] 2.16.8 40.1.983909.3.579.2.1285 1949 Unknown [id number] 2.16.8 40.1.880474.3.579.2.1285 1949 Unknown [id number] 2.16.8 40.1.956191.3.579.2.1285 1949 Unknown [id number] 2.16.8 40.1.983333.3.579.2.1285 1949 Unknown [id number] 2.16.8 40.1.898893.3.579.2.176 Summary Purpose Family History No Family History Records FoundNo Family History Records FoundNo Family History Records Found Advance Directives No Advanced Directives Records FoundNo Advanced Directives Records FoundNo Advanced Directives Records Found Additional Source Comments INFORMATION SOURCE (unrecogn ized section and content) DATE CREATED AUTHOR 2024 [facility] DATE CREATED AUTHOR AUTHOR'S ORGANIZ ATION 01/19/2025 [facility] DATE CREATED AUTHOR AUTHOR'S ORGANIZ ATION 02/01/2025 [facility] FOR RECORDS PERTAINING TO PATIENTS WHO ARE OR HAVE BEEN ENROLLED IN A CHEMICAL DEPENDENCY/SUBSTANCEABUSE PROGRAM, SOME INFORMATION MAY BE OMITTED. This clinical summary was aggregated from multiple sources. Caution should be exercised in using it in the provision of clinical care. This summary normalizes information from multiple sources, and as a consequence, information in this document may materially change the coding, format and clinical context of patient data. In addition, data may be omitted in some cases. CLINICAL DECISIONS SHOULD BE BASED ON THE PRIMARY CLINICAL RECORDS. [facility] [employer] provides no warranty or guarantee of the accuracy or completeness of information in this document.
--- OUTSIDE RECORDS SUMMARY | 2025-06-09 16:25 | XMS_ITS | Encounter Summary ---
Author Organization [facility] Address [facility] [place] [address] Care Team Providers Care Director [employer] Name Role Phone JeyAline peguero Audrey Primary Care Provider [phone] Krystal Clifton MD Primary Care Provider [phone] Genevieve Kimball (Machine Maintenance Supervisor) Primary Care Provider [phone] Source Comments In the event this information is protected by the Federal Confidentiality of Alcohol and Drug AbusePatient Records regulations: The Federal rules restrict any use of the information to criminally investigate or prosecute any alcohol or drug abuse patient.[facility] Encounter Details Date Type Department Care Team (Late st Contact Info) Description 03/01/2013 Patient Msg Medical Records [address] [place] [address] Provider, [facility] RE: Request an Appointment Social History Tobacco Use Types Packs/Day Years Used Date Smoking Tobacco: Former Cigarettes Comments:quit 25 years ago Alcohol Use Standard Drinks/Week Comments No 0 (1 standard drink = 0.6 oz pur e alcohol) Comments No Sex and Gender Information Value Date Recorded Sex Assigned at Not on file Legal Sex Female 8:30 AM EST Gender Identity Not on file Sexual Orientation Not on file documented as of this encounter Plan of Treatment Not on file documented as of this encounter Visit Diagnoses Not on filedocumented in this encounter Care Teams Director [employer] Relationship Specialty Start Date End Date [address] [place] [address] PCP - General Family Medicine 12/06/10 03/13/13 Krystal Clifton MD [address] [place] [phone] PCP - General Family Medicine 03/14/13 05/02/18 Genevieve Kimball (Machine Maintenance Supervisor) [address] [place] [phone] PCP - General Family Medicine 05/03/18 documented as of this encounter
--- OUTSIDE RECORDS SUMMARY | 2025-06-09 16:26 | XMS_ITS | Encounter Summary ---
Author Organization [facility] Address [address] [place] [address] Care Team Providers Care Digital Camera Technician Name Role Phone Krystal Clifton MD Primary Care Provider [phone] Genevieve Kimball (Endband Sizer) Primary Care Provider [phone] Source Comments In the event this information is protected by the Federal Confidentiality of Alcohol and Drug AbusePatient Records regulations: The Federal rules restrict any use of the information to criminally investigate or prosecute any alcohol or drug abuse patient.[facility] Encounter Details Date Type Department Care Team (Late st Contact Info) Description 12/01/2017 Patient Msg Family Medicine [address] [place] [address] Provider, Ccf Establish Care with a new PCP Social History Tobacco Use Types Packs/Day Years [...] on filedocumented in this encounter Care Teams Digital Camera Technician Relationship Specialty Start Date End Date Krystal Clifton MD PCP - General Family Medicine 03/14/13 05/02/18 Genevieve Kimball (Endband Sizer) [address] [place] [phone] PCP - General Family Medicine 05/03/18 documented as of this encounter
--- OUTSIDE RECORDS SUMMARY | 2025-06-09 16:26 | XMS_ITS | Patient Health Record ---
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 collapse (470494832) Syncope and collapse (R55) Problem resolved confirmed Problem Nonvenomous insect bite of trunk without infection (58856401) Insect bite (nonvenomous) of unspecified back wall of thorax, initial encounter (S20.469A) Problem resolved confirmed Problem Contusion of wrist (07550873) Contusion of unspecified wrist, subsequent encounter (S60.219D) Problem resolved confirmed Problem Contusion of knee (66726777) Contusion of unspecified knee, subsequent encounter (S80.00XD) Problem resolved confirmed Problem Fall (on)(from) sidewalk curb, subsequent encounter (W10.1XXD) Problem resolved confirmed Problem Viremia (0826310) VIRAL INFECTIO N OF UNSPECIFIED SITE (B34.9) 016 Problem resolved confirmed Problem Nonvenomous insect bite of trunk without infection (16281341) INSECT BITE (NONVENOMOUS) OF UNSPECIFIED BACK WALL OF THORAX (S20.469A) 016 Problem resolved confirmed Problem Anxiety disorder (disorder) (211801899) OTHER ANXIETY DISORDERS (F41.9) 015 Problem resolved confirmed Problem Acute pharyngitis (468438516) ACUTE PHARYNGITIS (J02.0) 016 Problem resolved confirmed Vital Signs Heart Rate 95 /min 06/06/2025 PT DID NOT TAKE BP MEDS THIS MORNING Temperature 97.1 degrees Fahrenheit 06/06/2025 PT D ID NOT TAKE BP MEDS THIS MORNING Blood pressure diastolic 90 mm Hg 06/06/2025 PT DID NOT TAKE BP MEDS THIS MORNING Oximetry 98 % 06/06/2025 PT DID NOT TAKE BP MEDS THIS MORNING Weight-kg 78.93 kg 06/06/2025 PT DID NOT TAKE BP MEDS THIS MORNING Height 67.00 in 06/06/2025 PT DID NOT TAKE BP MEDS THIS MORNING Blood pressure systolic 140 mm Hg 06/06/2025 PT D ID NOT TAKE BP MEDS THIS MORNING Weight 174 lbs 06/06/2025 PT DID NOT TAKE BP MEDS THIS MORNING BMI 27.25 kg/m2 06/06/2025 PT DID NOT TAKE BP MEDS THIS MORNING Procedures Procedure Date Ordered Date Performed Result Body Sit e *DIABETIC EYE EXAM 03/14/2025 N/A * Foot Exam 03/14/2025 N/A Encounters Encounter Location Date Provider Diagnosis [address] [place], [place] [id number] 07/16/2024 FLO CESPEDES Acute upper respirat ory infection J06.[address] [id number] 09/18/2024 Munir Hughes Essential (primary) hypertension I10 ; Fibromyalgia M79.7 ; 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 ; Hyperlipidemia, unspecified hyperlipidemia type E78.5 ; Primary insomnia F51.01 and Memory changes R41.[address] [id number] 10/16/2024 Elinor Mir Situational anxiety F41.[address] [id number] 12/18/2024 Munir Hughes Essential (primary) hypertension I10 ; Dyspnea on exertion R06.09 ; Anxiety, generalized F41.1 ; Acute cough R05.1 ; Hyperlipidemia, unspecified hyperlipidemia type E78.5 ; Prediabetes R73.03 ; High risk medication use Z79.899 ; Right inguinal pain R10.31 and Mild intermittent asthma, uncomplicated J45.[address] [place] [id number] 01/20/2025 Munir Hughes RLQ abdominal pain R 10.31 ; Right groin mass R19.09 ; Essential (primary) hypertension I10 and Type 2 diabetes mellitus with hyperglycemia, without long-term current use of insulin E11.[address] [place] [id number] 02/03/2025 Munir Hughes IC (interstitial cystitis) N30.[address] [id number] 03/14/2025 Munir Hughes Type 2 diabetes adrienne itus with hyperglycemia, without long-term current use of insulin E11.65 ; Chronic pain syndrome G89.4 ; High risk medication use Z79.899 ; Hyperlipidemia, unspecified hyperlipidemia type E78.5 ; Anxiety, generalized F41.1 and Essential (primary) hypertension I10 [address] [place] [id number] 04/14/2025 Munir Hughes Medication refill Z7 6.0 ; Anxiety disorder, unspecified F41.9 and Grief F43.[address] [id number] 06/06/2025 Munir Hughes Essential (primary) hypertension I10 ; Type 2 diabetes mellitus with hyperglycemia, without long-term current use of insulin E11.65 ; Grief F43.21 ; Encounter for immunization Z23 ; Hyperlipidemia, unspecified hyperlipidemia type E78.5 and Psychophysiological insomnia F51.[address] [place] [id number] 06/09/2025 Munir Hughes Hemoptysis R04.[address] [place] [id number] 06/11/2024 FLO CESPEDES [facility], [place] [address] [place] [address] 06/11/[address] [place] [id number] 06/18/2024 FLO CESPEDES Chronic pain syndrom e G89.4 [facility] [place] [address] [place] [address] 06/28/2024 [facility], [place] [address] [place] [address] 07/31/2024 FLO CESPEDES Chronic pain syndrom e G89.[address] [place] [id number] 08/19/2024 Munir Hughes Chronic pain syndrom e G89.4 [facility] [place] [address] [place] [address] 09/02/2024 Munir Ellen Right groin mass R19 .[address] [place] [id number] 09/03/2024 Sherry Floros Acute upper respirat ory infection J06.9 ; Chronic pain syndrome G89.4 and Anxiety disorder, unspecified F41.[address] [place] [id number] 10/04/2024 [facility] [place] [address] [place] [address] 10/16/2024 Mnuir Hughes [address] [place] [id number] 10/28/2024 Munir Hughes Chronic pain syndrom e G89.4 [facility] [place] [address] [place] [address] 11/04/2024 Munir Ellen Essential (primary) hypertension I10 [facility] [id number] 12/23/2024 Munir Ellen Essential (primary) hypertension I10 [facility] [address] [place], [place] [id number] 01/03/[address] [place] [id number] 01/06/2025 Munir Hughes Right groin mass R19 .09 [facility]- [address] [place], [place] [id number] 01/06/2025 Munir Hughes Chronic pain syndrom e G89.4 [facility]- [address] [place] [id number] 01/07/2025 [facility] [id number] 01/16/2025 Munir Hughes Right groin mass R19 .09 [facility]- [address] [place], [place] [id number] 01/22/2025 Munir [facility]- [address] [place], [place] [id number] 01/22/2025 Munir Hughes RLQ abdominal pain R 10.31 [facility]- [address] [place], [place] [id number] 01/23/2025 [facility] [address] [place] [id number] 01/27/2025 [facility] [address] [place] [id number] 01/28/2025 Munir [facility]- [address] [place] [id number] 02/03/2025 Munir [facility]- [address] [place] [id number] 02/04/2025 [facility] [id number] 02/07/2025 Munir Hughes Essential (primary) hypertension I10 [facility]- [address] [place], [place] [id number] 02/07/2025 Munir Hughes Type 2 diabetes adrienne itus with hyperglycemia, without long-term current use of insulin E11.65 [facility] [id number] 03/11/2025 [facility] [address] [place] [id number] 2025 [facility] [id number] 03/31/2025 FLO CESPEDES Essential (primary) hypertension I10 [address] [place], [place] [id number] 04/25/2025 Munir Hughes [facility] [id number] 05/12/2025 Munir Hughes Fibromyalgia M79.[address] [id number] 05/14/2025 Munir Hughes Essential (primary) hypertension I10 [facility] [id number] 05/14/2025 Munir Hughes Medication refill Z7 6.[address] [id number] 12/19/2024 Munir Hughes [address] [place], [place] [id number] 12/19/2024 Munir Hughes Impaired fasting blo od sugar R73.01 and Mild intermittent asthma, uncomplicated J45.20 Assessments Encounter Date Diagnosis (ICD Code) Assessment Notes Treatment Notes Treatment Clinical Notes Section Notes 06/18/2024 Chronic pain syndrom e (ICD-10 - G89.4) 07/16/2024 Acute upper respiratory infection (ICD-10 - J06.9) Pt advised to do covid test Plenty of fluid Continue using Flonase If it is negative then take Z pack If sympotms get worse then go to ER 07/31/2024 Chronic pain syndrom e (ICD-10 - G89.4) 08/19/2024 Chronic pain syndrom e (ICD-10 - G89.4) 09/02/2024 Right groin mass (ICD-10 - R19.09) 09/03/2024 Acute upper respiratory infection (ICD-10 - J06.9) 09/18/2024 Essential (primary) hypertension (ICD-10 - I10) 09/18/2024 Fibromyalgia (ICD-10 - M79.7) 10/16/2024 Situational anxiety (ICD-10 - F41.8) PDMP reviewed. rx hydroxyzine 25mg 1 tab prn for anxiety discussed pt to seek therapy and counseling. CancelRx Response got Denied on 2024-10-17 09:26:59 for 'hydrOXYzine HCl 25 MG Tablet'Pharmacy Notes: Unable to cancel prescription; prescription was transferred to another pharmacy. Rx was transferred to -- Facility: [facility] [id number] [facility] ID: [id number] 10/28/2024 Chronic pain syndrom e (ICD-10 - G89.4) 11/04/2024 Essential (primary) hypertension (ICD-10 - I10) 12/18/2024 Essential (primary) hypertension (ICD-10 - I10) ys 12/18/2024 Dyspnea on exertion (ICD-10 - R06.09) ys 01/20/2025 RLQ abdominal pain (ICD-10 - R10.31) 01/20/2025 Right groin mass (ICD-10 - R19.09) 01/22/2025 RLQ abdominal pain (ICD-10 - R10.31) 02/03/2025 IC (interstitial cystitis) (ICD-10 - N30.10) WE DISCUSSED WHAT TYPES OF FOOD TO AVOID. 02/07/2025 Essential (primary) hypertension (ICD-10 - I10) 02/07/2025 Type 2 diabetes mellitus with hyperglycemia, without long-term current use of insulin (ICD-10 - E11.65) 12/19/2024 Impaired fasting blo od sugar (ICD-10 - R73.01) 12/23/2024 Essential (primary) hypertension (ICD-10 - I10) 01/06/2025 Right groin mass (ICD-10 - R19.09) 01/06/2025 Chronic pain syndrom e (ICD-10 - G89.4) 01/16/2025 Right groin mass (ICD-10 - R19.09) 03/14/2025 Type 2 diabetes mellitus with hyperglycemia, without long-term current use of insulin (ICD-10 - E11.65) STOP TRULICITY 03/31/2025 Essential (primary) hypertension (ICD-10 - I10) 04/14/2025 Anxiety disorder, unspecified (ICD-10 - F41.9) 04/14/2025 Medication refill (ICD-10 - Z76.0) 05/12/2025 Fibromyalgia (ICD-10 - M79.7) 05/14/2025 Essential (primary) hypertension (ICD-10 - I10) 05/14/2025 Medication refill (ICD-10 - Z76.0) 06/06/2025 Essential (primary) hypertension (ICD-10 - I10) 06/06/2025 Type 2 diabetes mellitus with hyperglycemia, without long-term current use of insulin (ICD-10 - E11.65) 06/09/2025 Hemoptysis (ICD-10 - R04.2) due to the pt's symptoms and a family history of lung cancer, I instructed pt to go to the ER. She is in [place] right now so she will go to [place] [facility]. S 06/06/2025 Grief (ICD-10 - F43.21) 04/14/2025 Grief (ICD-10 - F43.21) 12/19/2024 Mild intermittent asthma, uncomplicated (ICD-10 - J45.20) 01/20/2025 Essential (primary) hypertension (ICD-10 - I10) 03/14/2025 Chronic pain syndrom e (ICD-10 - G89.4) 09/18/2024 Autoimmune disorder (ICD-10 - D89.89) 12/18/2024 Anxiety, generalized (ICD-10 - F41.1) ys 09/03/2024 Chronic pain syndrom e (ICD-10 - G89.4) 09/03/2024 Anxiety disorder, unspecified (ICD-10 - F41.9) 12/18/2024 Acute cough (ICD-10 - R05.1) ys 09/18/2024 Hyperlipidemia, unspecified hyperlipidemia type (ICD-10 - E78.5) 01/20/2025 Type 2 diabetes mellitus with hyperglycemia, without long-term current use of insulin (ICD-10 - E11.65) 06/06/2025 Encounter for immunization (ICD-10 - Z23) 03/14/2025 High risk medication use (ICD-10 - Z79.899) MAPS REVIEWED 06/06/2025 Hyperlipidemia, unspecified hyperlipidemia type (ICD-10 - E78.5) 03/14/2025 Hyperlipidemia, unspecified hyperlipidemia type (ICD-10 - E78.5) 12/18/2024 Hyperlipidemia, unspecified hyperlipidemia type (ICD-10 - E78.5) ys 09/18/2024 Primary insomnia (ICD-10 - F51.01) MAPS REVIEWED, CSA FORM SIGNED 12/18/2024 Prediabetes (ICD-10 - R73.03) ys 09/18/2024 Memory changes (ICD- 10 - R41.3) MINI MENTAL STATUS EXAM SCORE 03/14/2025 Anxiety, generalized (ICD-10 - F41.1) 06/06/2025 Psychophysiological insomnia (ICD-10 - F51.04) 03/14/2025 Essential (primary) hypertension (ICD-10 - I10) 12/18/2024 High risk medication use (ICD-10 - Z79.899) CSA, UDS. MAPS ys 12/18/2024 Right inguinal pain (ICD-10 - R10.31) ys 12/18/2024 Mild intermittent asthma, uncomplicated (ICD-10 - J45.20) ys 02/03/2025 Other KEEP UPCOMING APPT FOR CT ABD/PELVIS IN 2 DAYS. 06/06/2025 Other GET LABS DRAWN TODAY GETLABS Plan Of Treatment Pending Test Test Name Order Date CT Scan : Pelvis with contrast CT Scan : Abdomen and Pelvis with contra st 01/20/2025 X ray : Hands, bilateral 06/05/2024 X ray : Elbow, left 12/02/2020 X ray : Knee, left 2 views 12/02/2020 X ray : Knee, right 2 views 12/02/2020 X ray : Rib series, left 05/05/2021 X ray : Spines, lumbar 2 views X ray : Thoracic spine [address] Scan : Pelvis w/o IV Contrast 025 Chest X-ray PA and lateral 11/30/2022 Chest X-ray PA and lateral 12/18/2024 Chest X-ray PA and lateral 04/04/2023 Urinalysis, Routine -In House 04/28/2020 Bone Density 01/12/2022 Bone Density 02/21/2024 Bone Density 06/11/2024 MRI : Cervical with and without Contrast 09/24/2021 MRI : Lumbar with and without Contrast 0 09/24/2021 MRI : Thoracic with and without Contrast 09/24/2021 Ultrasound : Artery Doppler Low Ext Bila t 02/21/2024 Ultrasound : Doppler : Veins Leg Left Ultrasound : Doppler : Veins Leg Right 0 05/07/2021 Urine Drug Screen-12 panel 07/18/2023 Urine Drug Screen-12 panel 12/18/2024 BASIC METABOLIC PANEL 04/04/2023 COMPREHENSIVE METABOLIC PANEL 06/05/2024 HEPATIC FUNCTION PANEL 04/04/2023 HEPATIC FUNCTION PANEL 11/17/2021 DRUG MONITOR, PANEL 5, SCREEN, URINE VITAMIN D,25-OH,TOTAL,IA 01/12/2022 CBC (H/H, RBC, INDICES, WBC, PLT) 2024 TSH W/REFLEX TO FT4 04/04/2023 TSH W/REFLEX TO FT4 06/05/2024 TSH W/REFLEX TO FT4 12/06/2023 C-REACTIVE PROTEIN 06/05/2024 HEMOGLOBIN A1c 06/05/2024 HEMOGLOBIN A1c 04/04/2023 CBC (INCLUDES DIFF/PLT) 04/04/2023 CBC (INCLUDES DIFF/PLT) 06/05/2024 LIPID PANEL, STANDARD 06/05/2024 LIPID PANEL, STANDARD 12/06/2023 LIPID PANEL, STANDARD 01/12/2022 SED RATE BY MODIFIED WESTERGREN 06/05/20 24 SAWYER SCR, IFA, W/REFL TITER/PATTERN/RHEUM ATOID ARTHRITIS PANEL 1 06/05/2024 *DIABETIC EYE EXAM 03/14/2025 * Foot Exam 03/14/2025 Ultrasound : Groin 09/02/2024 Ultrasound : Groin 12/18/2024 COVID 19 nasopharyngeal swab 01/20/2020 COVID 19 nasopharyngeal swab 09/07/2021 Future Test Test Name Order Date LIPID PANEL, STANDARD 12/08/2021 Next Appt Details Provider Name:Munir Hughes, 06/13/2025 11:15:00 AM, [address] [facility], [place], [place], [id number], Insurance Providers Payer Name Payer Address Payer Phone Subscriber Number Group Number Insured Name Patient Relationship to Insured Coverage Start Date Coverage End Date [facility] Medicare/Dual [address] [address] [place] [phone] [id number] COATS, FAUSTINO Self - patient is the insured [place] [address] [address] [place] [id number] FAUSTINO COATS Self - patient is the insured [employer] [address] [place] [phone] [id number] FAUSTINO COATS - patient is the insured Medications Administered Medication Instructions Date of Administration Dosage Notes Depo Medrol 40mg 05/07/2021 40 mg Verified by [facility]/ LWE=[id number] Pt tolerated injection well Depo Medrol 40mg 12/27/2022 40 mg confirme d by myranda gusman Depo Medrol 40mg 06/05/2024 40 mg Verified By: DEPO-Medrol 09/18/2024 80 mg verified by: Munir Ketorolac Tromethamine 60mg 05/07/2021 30 mg Verified by [facility]/ NDC= [id number] Pt tolerated injection well Ketorolac Tromethamine 12/27/2022 60 mg co nfirmed by myranda gusman Vitamin B12 01/12/2022 1000 mg verified by: Elbert Cyanocobalamin 04/04/2023 1000 ug Verified B y: & Cyanocobalamin 09/18/2024 1000 ug verified b y: Munir Cyanocobalamin 12/18/2024 1000 ug verified b y: Munir Cyanocobalamin 03/14/2025 1000 ug verified b y: Dr Durham Cyanocobalamin 06/06/2025 1000 ug verified b y Tammy Samuels Medical (General) History Medical History History ICD Code ASTHMA, ANXIETY, GERD, HSV, INSOMNIA, HI STORY OF CHEMICAL EXPOSURE Viral infection, unspecified (resolved 0 01/05/2017) undefined Streptococcal pharyngitis (resolved 12/19) Hemoptysis (resolved 11/28/2016) Syncope and collapse (resolved ) Insect bite (nonvenomous) of unspecified back wall of thorax, initial encounter (resolved 01/05/2017) Contusion of unspecified wrist, subseque nt encounter (resolved 02/13/2017) Contusion of unspecified knee, subsequen t encounter (resolved 02/13/2017) Fall (on)(from) sidewalk curb, subsequen t encounter (resolved 11/28/2016) VIRAL INFECTION OF UNSPECIFIED SITE (res olved 01/05/2017) INSECT BITE (NONVENOMOUS) OF UNSPECIFIED BACK WALL OF THORAX (resolved 01/05/2017) OTHER ANXIETY DISORDERS (resolved 2015) ACUTE PHARYNGITIS (resolved 01/05/2017) Major depressive disorder, recurrent, mo derate (resolved 06/16/2022) undefined Surgical History Surgery Date(Month/Year) BACK SURGERY- CERVICAL AND LUMBAR FUSION , HYSTERECTOMY, PDA CLOSURE Carpel Tunnel Surgery RT wrist 4
--- OUTSIDE RECORDS SUMMARY | 2025-06-09 16:26 | XMS_ITS | Encounter Summary ---
Author Organization [employer] Address [id number] [place] [address] Care Team Providers Care Hydropulper Operator Name Role Phone Munir Hughes Primary Care Provider [phone] Encounter Details Date Type Department Care Team ([facility] Contact Info) Description 10/16/2023 Telephone [facility] [address] [facility] [address] [place] [address] Lui Aggarwal, DO [address] [facility] [place] [address] Social History Tobacco Use Types Packs/Day Years Used Date Smoking Tobacco: Former Cigarettes Q uit: 08/25/1975 Smokeless Tobacco: Never Alcohol Use Standard Drinks/Week Comments No 0 (1 standard drink = 0.6 oz pur e alcohol) Social Connection and Isolation Panel Answer Date Recorded In a typical week, how many times do you talk on the phone with family, friends, or neighbors? More than three times a week 08/27/2022 How often do you get togethe r with friends or relatives? More than three times a week 08/27/2022 How often do you attend chur ch or synagogue services? More than 4 times per year 08/27/2022 Do you belong to any clubs o r organizations such as denominational groups, unions, fraternal or athletic groups, or school groups? Yes 08/27/2022 How often do you attend meet ings of the clubs or organizations you belong to? More than 4 times per year 08/27/2022 Are you , , di vorced, , never , or living with a partner? 08/27/2022 AUDIT-C Answer Date Recorded Q1: How often do you have a drink containing alc ohol? Never 08/27/2022 Q2: How many drinks containi ng alcohol do you have on a typical day when you are drinking? 1 or 2 08/27/2022 Q3: How often do you have six or more drinks on one occasion? Never 08/27/2022 Overall Financial Resource Strain (CARDIA) Answe r Date Recorded How hard is it for you to pa y for the very basics like food, housing, medical care, and heating? Not hard at all 08/27/2022 PHQ-2 Answer Date Recorded Total Score 1 08/27/2022 [facility] Occupat ional Health - Occupational Stress Questionnaire Answer Date Recorded Do you feel stress - tense, restless, nervous, or anxious, or unable to sleep at night because your mind is troubled all the time - these days? To some extent 08/27/2022 Exercise Vital Sign Answer Date Recorde d On average, how many days pe r week do you engage in moderate to strenuous exercise (like a brisk walk)? 0 days 08/27/2022 On average, how many minutes do you engage in exercise at this level? 0 min 08/27/2022 PRAPARE - Transportation Answer Date Re corded In the past 12 months, has l ack of transportation kept you from medical appointments or from getting medications? No 02/2023 In the past 12 months, has l ack of transportation kept you from meetings, work, or from getting things needed for daily living? No 08/27/2022 Childcare Answer Date Recorded Do problems getting child ca re make it difficult for you to work or study? No 08/27/2022 Employment Answer Date Recorded Do you need help finding a [employer] and/or a training program? No 08/27/2022 Hunger Screening Answer Date Recorded Within the past 12 months we worried whether our food would run out before we got money to buy more. Never True 08/01/2023 Within the past 12 months th e food we bought just didn't last and we didn't have money to get more. Never True 08/01/2023 Purpose - Life Answer Date Recorded I have a purpose and direction in my life. Stron gly Agree 08/27/2022 Comments No Sex and Gender Information Value Date Recorded Sex Assigned at Female 11/15/2021 12:17 PM EDT Legal Sex Female 11:57 AM EDT Gender Identity Female 11/15/2021 12:17 PM EDT Sexual Orientation Straight 11/15/2021 12 :17 PM EDT documented as of this encounter Plan of Treatment Upcoming Encounters Date Type Department Care Team (Late st Contact Info) Description 06/24/2025 2:00 PM EST Office Visit [facility] [address] [address] Garry Kingston MD [address] [place] [address] documented as of this encounter Goals Goal Patient Goal Type Associated Problems Recent Progress Patient-Stated? Author safe discharge to home General Yes Blanquita Batres, RN Note: Evaluation of progress towards goal: safe transition from hospital to home with and family support. documented as of this encounter Visit Diagnoses Not on filedocumented in this encounter Additional Health Concerns Assessment Noted Time PHQ-9 Depression Total Score: 1 08/27/19 23 3:46 PM EST documented as of this encounter Care Teams Hydropulper Operator Relationship Specialty Start Date End Date Munir Hughes PA [address] [place] [address] PCP - General Physician Sales And Service Specialist 06/20/23 documented as of this encounter
--- OUTSIDE RECORDS SUMMARY | 2025-06-09 16:26 | XMS_ITS | Clinical Summary ---
Author Organization [facility] Address [address] [place] [address] Care Team Providers Care Shearing Machine Tender Name Role Phone Genevieve Kimball (Scientific Programmer Analyst) Primary Care Provider [phone] Allergies Active Allergy Reactions Criticality Noted Date Comments Codeine Vomiting 06/10/2010 Contrast Dye Anaphylaxis 04/05/2010 Latex Rash 05/09/2011 Betamethasone Dipropionate GI Upset 0 Talc Rash 05/09/2011 Medications omeprazole 10 mg capsuleIndicatio ns:Fatigue,Anemi a Take 10 mg by mouth once daily. Active HYDROcodone-marci tropine (HYDROMET) 5-1.5 mg/5 mL syrup Take 5 mL by mouth four times daily as needed. 6 oz 0 11/03/2014 Active ALBUTEROL INHALATION Inhale as instructed. 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 11/11/2010 Peripheral vertigo, unspecified 04/15/2010 Vertigo of central origin 04/15/2010 Family History Medical History Relation Comments lung cancer [Other] Brother ARDS [Other] Father Diabetes Maternal Aunt Diabetes Maternal Grandmother Diabetes Mother ARDS [Other] Sister issues post oper atively Diabetes Sister Relation Status Comments Brother Father Maternal Aunt Maternal Grandmother Mother Sister Social History Tobacco Use Types Packs/Day Years [...] file Not on file Not on file Last Filed Vital Signs Vital Sign Reading Time Taken Comments Blood Pressure 124/66 11/03/2014 1:46 PM EDT Pulse 98 11/03/2014 1:46 PM EDT Temperature 37.5 C (99.5 F) 11/03/2014 12:17 PM EDT Respiratory Rate 24 11/03/2014 1:46 PM EDT Oxygen Saturation 96% 11/03/2014 1:46 PM EDT Inhaled Oxygen Concentration - - Weight 81.6 kg (180 lb) 11/03/2014 11:05 AM EDT Height 170.2 cm (5' 7 ) 11/03/2014 11:05 AM EDT Body Mass Index 28.19 11/03/2014 11:05 AM EDT Plan of Treatment Health Maintenance Due Date Last Done Comments Anxiety Screening 1967 Depression Screening 1967 Hepatitis C Screening 1967 DTaP,Tdap,Td Vaccine (1 - Tdap) 1968 Pneumococcal Vaccine: 50+ (1 of 1 - PCV) 1999 Shingrix Vaccine (1 of 2) 1999 Diabetes Screening 11/03/2017 11/03/2014, 0 12/04/2013, 2013, Additional history exists RSV Vaccine (1 - 1-dose 75+ series) 2024 Advance Directive Discussion 08/21/2024 Covid-19 Vaccine (1 - 2024-2 6 season) 2025 Influenza Vaccine (#1) 2025 Bone Density Screening Completed 04/07/2011 Colonoscopy Discontinued 02/18/2013, 0708/2012, 05/17/2010, Additional history exists Colorectal Cancer Screening Discontinued Mammogram Screening Discontinued 04/10/2017 CT Colonography Discontinued Cologuard (FIT-DNA) Discontinued Fecal Occult Blood Discontinued Sigmoidoscopy Discontinued Procedures Procedure Name Priority Date/Time Associated Diagnosis Comments COMPREHENSIVE METABOLIC PANEL STAT 11/03/2014 11:25 AM EDT COLONOSCOPY - DIAGNOSTIC Routine 02/18/2013 1:13 PM EDT Ulcerative colitis BMD BONE DENSITY Routine 04/07/2011 10:1 8 AM EDT Loss of height from Last 3 Months or Most Recently Relevant to Health Maintenance Results * (ABNORMAL) COMP METABOLIC PANEL (11/03/2014 11:25 AM EDT) Protein, Total 7.4 6.0 - 8.4 g/dL 11/03/2014 12:00 PM EDT [facility] Albumin 4.2 3.5 - 5.0 g/dL 11/03/2014 12:00 PM EDT [facility] Calcium 9.9 8.5 - 10.5 mg/dL 11/03/2014 12:00 PM EDT [facility] Bilirubin, Total 0.4 0.0 - 1.5 mg/dL 11/03/2014 12:00 PM EDT [facility] Alkaline Phosphatase 63 40 - 150 U/L 11/03/2014 12:00 PM EDT [facility] AST 23 7 - 40 U/L 11/03/2014 12:00 PM EDT [facility] Glucose 118(H) 65 - 100 mg/dL 11/03/2014 12:00 PM EDT [facility] BUN 15 8 - 25 mg/dL 11/03/2014 12:00 PM EDT [facility] Creatinine 0.61(L) 0.70 - 1.40 mg/dL 11/03/2014 12:00 PM EDT [facility] Sodium 136 132 - 148 mmol/L 11/03/2014 12:00 PM EDT [facility] Potassium 3.9 3.5 - 5.0 mmol/L 11/03/2014 12:00 PM EDT [facility] Chloride 99 98 - 110 mmol/L 11/03/2014 12:00 PM EDT [facility] CO2 25 23 - 32 mmol/L 11/03/2014 12:00 PM EDT [facility] Anion Gap 12 0 - 15 mmol/L 11/03/2014 12:00 PM EDT [facility] ALT 28 0 - 45 U/L 11/03/2014 12:00 PM EDT [facility] Blood specimen (specimen) BLOOD SPECIMEN / Unknown 11/03/2014 11:25 AM EDT 11/03/2014 11:29 AM EDT Yves Chambers MD LABORATORY Final Result [facility] [address] [place] [address] * COLONOSCOPY - DIAGNOSTIC (02/18/2013 1:13 PM EDT) [facility] Gastrointestinal Endoscopy Patient Name: Patricia Guillory Procedure Date: 02/18/2013 1:13 PM Date of : 1950 Admit Type: Outpatient Age: 62 Gender: Female Note Status: Finalized Procedure: Colonoscopy Indications: Follow-up of ulcerative colitis Providers: Evelina Graves MD, Helene Navarrete, VALERIA, Onel Rondon, Alberta Garcia RN Referring Physician: Medicines: Midazolam 5 mg IV, Meperidine 100 mg IV Complications: No immediate complications. Requesting Provider: Procedure: Pre-Anesthesia Assessment: - Prior to the procedure, a History and Physical was performed, and patient medications and allergies were reviewed. The patient is competent. The risks and benefits of the procedure and the sedation options and risks were discussed with the patient. All questions were answered and informed consent was obtained. Patient identification and proposed procedure were verified by the physician, the nurse and the legal cashier in the pre-procedure area in the endoscopy suite. Mental Status Examination: alert and oriented. Airway Examination: normal oropharyngeal airway and neck mobility. Respiratory Examination: clear to auscultation. CV Examination: normal. Prophylactic Antibiotics: The patient does not require prophylactic antibiotics. Prior Anticoagulants: The patient has taken no previous anticoagulant or antiplatelet agents. ASA Grade Assessment: II - A patient with mild systemic disease. After reviewing the risks and benefits, the patient was deemed in satisfactory condition to undergo the procedure. The anesthesia plan was to use moderate sedation / analgesia (conscious sedation). Immediately prior to administration of medications, the patient was re-assessed for adequacy to receive sedatives. The heart rate, respiratory rate, oxygen saturations, blood pressure, adequacy of pulmonary ventilation, and response to care were monitored throughout the procedure. The physical status of the patient was re-assessed after the procedure. After I obtained informed consent, the scope was passed under direct vision. Throughout the procedure, the patient's blood pressure, pulse, and oxygen saturations were monitored continuously. The Colonoscope was introduced through the anus and advanced to the cecum, identified by appendiceal orifice & ileocecal valve. The colonoscopy was performed without difficulty. The patient tolerated the procedure well. The quality of the bowel preparation was good. Findings: The perianal and digital rectal examinations were normal. Inflammation characterized by congestion (edema), erosions, erythema, friability and loss of vascularity was found in a continuous and circumferential pattern from the anus to the sigmoid colon. The descending colon, the splenic flexure, the transverse colon, the hepatic flexure, the ascending colon, the cecum, the appendiceal orifice and the ileocecal valve were spared. This was moderate in severity. Biopsies were taken with a cold forceps for histology. Verification of patient identification for the specimen was done. Estimated blood loss was minimal. The exam was otherwise normal throughout the examined colon. Impression: - Inflammation was found from the anus to the sigmoid colon secondary to proctosigmoid ulcerative colitis. This was biopsied. Recommendation: - Use Rowasa enemas 1 per rectum daily. - Return to my office in 2 months. - Return to primary care physician as previously scheduled. MD Evelina Echeverria MD 02/18/2013 1:48 PM This report has been signed electronically. Number of Addenda: 0 Note Initiated On: 02/18/2013 1:13 PM [facility] Anatomical Region Laterality Modality Other 02/18/2013 1:13 PM EDT Evelina Schmidt MD [facility] Final Resu lt * BMD BONE DENSITY (04/07/2011 10:18 AM EDT) [facility]uc * * *Final Report* * * DATE OF EXAM: Apr 07 2011 10:18AM [facility] 5714 - BD AP SPINE/HIP / PROCEDURE REASON: LOSS OF HEIGHT * * * * Physician Interpretation * * * * RESULT: EXAM: DXA BONE DENSITOMETRY PATIENT DEMOGRAPHICS: Age: 61 years, Race: , Gender: Female SCANNER INFORMATION: Model of DXA scanner: Apiary [id number] Site of DXA scanner: [place] Sites scanned: Lumbar spine and left hip Date of scan: 04/07/2011 HISTORY: RISK FACTORS FOR OSTEOPOROSIS AND ASSOCIATED FRACTURES REPORTED BY THIS PATIENT: Family history of osteoporosis in a first degree relative, history of tobacco use, ulcerative colitis, no calcium or vitamin D supplementation, current use of seizure medication CURRENT THERAPY: none TECHNICAL LIMITATIONS: Degenerative disease of the spine RESULTS: Lumbar spine: L1-L4 1.124 g/cm2, T-score -0.5, Z-score 0.9 Left Femoral Neck:0.890 g/cm2, T-score -1.1, Z-score 0.3 Left Total Hip:0.951 g/cm2, T-score -0.5, Z-score 0.6 IMPRESSION: THE LOWEST T-SCORE IS -1.1 1) DIAGNOSIS (based on BMD alone): OSTEOPENIA 2) FRACTURE RISK (based on BMD alone): INCREASED Caution: Fracture risk may be increased independent of BMD in patients with age greater than 65 years. RECOMMENDATIONS: All patients should receive the recommended daily allowance of calcium and vitamin D, as clinically indicated. Weight bearing exercises and strength training should be considered. Cessation of smoking and moderation of intake of alcohol, caffeine and carbonated beverages are recommended. NOF treatment recommendations (2008) Postmenopausal women and men age 50 and older presenting with the following should be treated: A hip or vertebral (clinical or morphometric) fracture T-score less than or equal to -2.5 at the femoral neck, total hip or spine after appropriate evaluation to exclude secondary causes Low bone mass (T-score between -1.0 and -2.5 at the femoral neck, total hip or spine) and 10 year probability of hip fracture greater than or equal to 3% or a 10 year probability of any major osteoporosis-relat ed fracture greater than or equal to 20% based on the [place].- adapted WHO algorithm for FRAX(TM). www.ulices.ac. uk/FRAX/tool.jsp PLEASE NOTE FRAX(TM) + Does not apply to treated or previously treated patients ALL RECOMMENDATIONS AND CALCULATIONS ARE TO BE CONSIDERED GUIDELINES AND SHOULD NOT REPLACE SOUND CLINICAL JUDGMENT Follow-up in 2 to 4 years or as clinically indicated. Follow-up scans should always be done on the same machine for accurate comparison. FOR MORE INFORMATION: [facility] Disease: www.ccf.org/arthri tis/osteo National Osteoporosis Foundation: www.nof.org International Society of Clinical Densitometry www.iscd.org Freelance Graphic Designer: SUSY Transcribe Date/Time: Apr 07 2011 9:01P Dictated by : MARY QUACH MD This examination was interpreted and the report reviewed and electronically signed by: MARY QUACH MD On Apr 07 2011 9:01PM DIVISION OF RADIOLOGY Anatomical Region Laterality Modality Other 04/07/2011 10:1 8 AM EDT Aline Carrillo MD BONE DENSITY Final Result from Last 3 Months or Most Recently Relevant to Health Maintenance Insurance MEDICARE * Guarantor: GuilloryPatricia J Account Type Relation to Patient Date of Phone Billing Address Self Pay Self 1950 [address] [place] [address] Care Teams Shearing Machine Tender Relationship Specialty Start Date End Date Genevieve Kimball (Scientific Programmer Analyst) [address] [place] [address] PCP - General Family Medicine 05/03/18
--- OUTSIDE RECORDS SUMMARY | 2025-06-09 16:27 | XMS_ITS | Clinical Summary ---
Author Organization [employer] tem Address [id number] [address] [place] [address] Care Team Providers Care Head Sawyer Automatic Name Role Phone Munir Hughes Primary Care Provider [phone] Allergies Active Allergy Reactions Criticality Noted Date Comments Codeine Nausea And Vomiting Low 06/10/2010 Other reaction(s): Vomiting Iodinated Contrast Media Anaphylaxis High 02/18/2020 Anaphylactic reaction 25 yrs ago per PT Latex Hives,Itching Medium 12/07/2021 Talc Rash Low 05/09/2011 Medications lisinopriL (PRINIVIL,ZESTR IL) 5 mg tablet Take 2 tablets (10 mg total) by mouth in the morning and at bedtime. Active omeprazole (PriLOSEC) 20 mg capsule Take 1 capsule (20 mg total) by mouth in the morning. Active atorvastatin (LIPITOR) 10 mg tablet Take by mouth daily. Active acetaminophen (TYLENOL ARTHRITIS) 650 mg 8 hr tablet Take 1 tablet (650 mg total) by mouth every 8 (eight) hours as needed for pain. Active ondansetron (ZOFRAN) 4 mg tablet Take 1 tablet (4 mg total) by mouth every 8 (eight) hours as needed for nausea or vomiting for up to 12 doses. 12 tablet 3 Active ibuprofen (MOTRIN) 600 mg tablet Take 1 tablet (600 mg total) by mouth every 6 (six) hours as needed for pain. 30 tablet 3 Active lidocaine (LIDODERM) 5 % Place 1 patch on the skin in the morning. Remove & Discard patch within 12 hours or as directed by MD. 30 patch 3 Active tiZANidine (ZANAFLEX) 4 mg tablet Take 1 tablet (4 mg total) by mouth every 6 (six) hours as needed for muscle spasms (back pain). 30 tablet 3 Active HYDROcodone-abad taminophen (NORCO) 5-325 mg per tablet Take 1 tablet by mouth every 6 (six) hours as needed for pain. 3 Active RESTASIS 0.05 % ophthalmic emulsion Administer 1 drop to both eyes every 12 (twelve) hours. 3 Active estradioL (ESTRACE) 0.01 % (0.1 mg/gram) vaginal cream Insert 2 g into the vagina in the morning. 3 Active Active Problems Problem Noted Date Diagnosed Date E-coli UTI 06/23/2023 Essential hypertension 06/21/2023 Pyelonephritis 06/21/2023 Acute pyelonephritis 08/27/2022 Spinal stenosis of lumbar re gion with neurogenic claudication 08/18/2022 Overview (08/18/2022): Added automatically from request for surgery [id number] Disorder of sacrum 07/28/2022 Overview (07/28/2022): Added automatically from request for surgery [id number] Lumbosacral spondylosis without myelopathy 12/07 Overview (12/07/2021): Added automatically from request for surgery [id number] Gastroesophageal reflux disease without esophagi tis 09/30/2019 Immunizations Immunization Administration Dates Next Due Covid-19, Mrna, Lnp-s, Bival ent, Pf, 50mcg/0.5ml or 25mcg/0.25ml 08/09/2022 Family History Medical History Relation Name Comments No Known Problems Cousin No Known Problems Daughter No Known Problems Father No Known Problems Maternal Aunt No Known Problems Maternal Grandfather No Known Problems Maternal Grandmother Cancer Mother Breast cancer Other niece No Known Problems Paternal Aunt No Known Problems Paternal Grandfather No Known Problems Paternal Grandmother No Known Problems Sister Cancer Son lung CA BRCA 1/2 Neg Hx Johnson Breast Cancer Neg Hx Endometrial cancer Neg Hx Ovarian cancer Neg Hx Relation Name Status Comments Cousin Daughter Father Maternal Aunt Maternal Grandfather Maternal Grandmother Mother Other niece Alive Paternal Aunt Paternal Grandfather Paternal Grandmother Sister Son Social History Tobacco Use Types Packs/Day Years [...] often do you attend chur ch or yarsanism services? More than 4 times per year 08/27/2022 Do you belong to any clubs o r organizations such as baptism groups, unions, fraternal or athletic groups, or [...] Answer Date Recorded Total Score 1 08/27/2022 [facility] [place] of Occupat ional Health - Occupational Stress [...] Recorded Do you need help finding a [employer] career center and/or a training program? No 08/27/2022 Hunger Screening Answer Date Recorded Within the past 12 months we worried whether our food would run out before we got money to buy more. Never True 02/06/2024 Within the past 12 months th e food we bought just didn't last and we didn't have money to get more. Never True 02/06/2024 Purpose - Life Answer Date Recorded I have a purpose and direction in my life. Stron gly Agree 08/27/2022 Comments No Sex and Gender Information Value Date Recorded Sex Assigned at Female 11/15/2021 12:17 PM EDT Legal Sex Female 11:57 AM EDT Gender Identity Female 11/15/2021 12:17 PM EDT Sexual Orientation Straight 11/15/2021 12 :17 PM EDT Last Filed Vital Signs Vital Sign Reading Time Taken Comments Blood Pressure 118/79 02/06/2024 2:02 PM EDT Pulse 87 02/06/2024 2:02 PM EDT Temperature 36.3 C (97.4 F) 06/23/2023 8:02 AM EDT Pt stated she ate ice a coupe minutes before temp. was taken Respiratory Rate 18 02/06/2024 2:02 PM EDT Oxygen Saturation 94% 02/06/2024 2:0 2 PM EDT Inhaled Oxygen Concentration - - Weight 79.4 kg (175 lb 0.7 oz) 2024 12:46 PM EDT Height 170.2 cm (5' 7.01 ) 2024 1 2:46 PM EDT Body Mass Index 27.41 2024 12:46 PM EDT Plan of Treatment Upcoming Encounters Date Type Department Care Team (Late st Contact Info) Description 06/24/2025 2:00 PM EST Office Visit [facility] [address] [address] Garry Kingston MD [address] [address] Health Maintenance Due Date Last Done Comments Zoster (Shingles) Vaccine (1 of 2) 1999 Fall Risk Screening 2014 Depression Screening 08/27/2023 08/27/2022 Tobacco Screening 02/05/2025 02/06/2024 COVID-19 Vaccine (2023- 5 season) 2025 08/20/2024, 12/20/2022, 08/09/2022, Additional history exists Influenza Vaccine 04/21/2025 05/30/2024, , 06/23/2021, Additional history exists DTaP,Tdap and Td Vaccines (3 - Td or Tdap) 05/25/2030 05/25/2020, 07/15/2018 Goals Goal Patient Goal Type Associated Problems Recent Progress Patient-Stated? Author safe discharge to home General Yes Blanquita Batres, RN Note: Evaluation of progress towards goal: safe transition from hospital to home with and family support. Medical Devices Implanted Type Area Refrigeration Systems Installer Device Identifier Shelf Expiration Date Model / Serial / Lot Cervical Description:cervical fusion Insurance [place]ID [place] [employer] [facility] MED[employer]ARE AUTO INSURANCE Advance Directives * Full Code (Latest Code Status on File) Date Activated Date Inactivated Comments 06/21/2023 3:04 AM 06/23/2023 2:39 PM * Full Code Date Activated Date Inactivated Comments 08/27/2022 6:54 PM 08/29/2022 4:04 PM Care Teams Head Sawyer Automatic Relationship Specialty Start Date End Date Munir Hughes PA [address] [place] [address] PCP - General Physician Still Operator Gin 06/20/23
--- NOTE | 2025-06-09 18:53 | CT_ITS ---
[address] [address] Patient Name: FAUSTINO COATS MRN: [id number] date: 1950 Sex: F Assigned Patient Location: ED.MAIN Current Patient Location: ED.MAIN Accession/Order Number: [id number] Exam Date: 06/09/2025 21:10 Report Date: 06/09/2025 21:43 At the request of: HILARIO RODRIGUEZ Procedure: CT angio chest CT ANGIOGRAM OF THE CHEST, PULMONARY EMBOLISM PROTOCOL: CLINICAL INFORMATION: Chest pain, short of breath, hemoptysis TECHNIQUE: Following intravenous injection of contrast CT scans of the chest were obtained using pulmonary embolism protocol. Coronal and sagittal reconstructed images, as well as volume rendered CT pulmonary angiographic images were also submitted.The CT exam was performed using one or more of the following dose reduction techniques: Automated exposure control, adjustment of the MA and/or Kv according to patient size, or use of the iterative reconstruction technique. FINDINGS: Pulmonary Vasculature: No central to proximal segmental branch pulmonary artery emboli.. Mediastinum : Cardiomegaly. Coronary disease. Calcified granulomas right hilar and mediastinal lymph nodes. Lungs: Hypoventilatory change. No focal consolidation, pneumothorax or pleural effusion. Upper abdomen: No acute findings Soft tissue/bones: Soft tissues surrounding the chest wall demonstrate no acute findings. Osseous structures demonstrate degenerative change. CT/CT angio chest IMPRESSION: No CT evidence of pulmonary embolism. Negative acute pulmonary process Impression dictated by: Martin Conley M.D. 06/09/2025 9:43 PM Dictation Location: [email or web address] Electronically authenticated by: [id number] Y Date: 06/09/2025 21:43
--- NOTE | 2025-06-09 18:55 | ECG_ITS ---
[facility] Test Date: 2025-06-09 Pat Name: FAUSTINO COATS Department: Room: - Gender: Female Occup Therapist: : 1950 Requested By: [id number] Order Number: [id number] Reading MD: GHADA PETTY Measurements Intervals Fifty Six Rate: 77 P: 54 NE: 176 QRS: 77 QRSD: 80 T: 36 QT: 352 QTc: 383 Interpretive Statements 1100 Sinus rhythm 9110 normal ECG No previous ECG available for comparison Electronically Signed On 06-10-2025 17:05:52 EDT by GHADA PETTY
--- NOTE | 2025-06-09 19:05 | ED_ITS ---
HPI HPI - General Adult General Chief complaint: Weakness Stated complaint: Cough up Blood Time Seen by Provider: 06/09/25 18:37 Source: patient Mode of arrival: walk-in Limitations: no limitations History of Present Illness HPI narrative: Patient is a 75-year-old female with a past medical history of fibromyalgia that presents with main complaint of hemoptysis this morning. She states that she has been coughing for about a week with shortness of breath. She reports chills and night sweats but never took her temperature to see if she had a fever. She denies any history of smoking or lung cancer. She denies any sick contacts. She does use vaginal estrogen cream, denies recent surgery or hospitalization. She denies any previous history of PE or DVT or cancer. Of note her son did recently just of lung cancer. She denies any lung disease. She did have surgery when she was a child for a patent ductus arteriosus. Related Data Home Medications ?Medication ?Instructions ?Recorded ?Confirmed lisinopril 5 mg tablet 5 mg 01/07/25 omeprazole 20 mg capsule,delayed 20 mg 01/07/25 release atorvastatin 10 mg tablet mg 06/09/25 dutasteride 0.5 mg capsule mg PO 06/09/25 ibuprofen 800 mg tablet mg 06/09/25 lorazepam 1 mg tablet mg 06/09/25 minoxidil 2.5 mg tablet mg 06/09/25 semaglutide 0.25 mg or 0.5 mg (2 mg subcut 06/09/25 mg/3 mL) subcutaneous pen injector (Ozempic) trazodone 50 mg tablet mg 06/09/25 Previous Rx's ?Medication ?Instructions ?Recorded azithromycin 250 mg tablet See Rx Instructions PO .COM PLEX #6 06/09/25 (Zithromax Z-Kirill) tabs Allergies Allergy/AdvReac Type Severity Reaction Status Date / Time Iodinated Contrast Media Allergy Severe Anaphylaxis Verified 06/09/25 16:11 Latex, Natural Rubber Allergy Severe Nausea Verified 06/09/25 16:11 codeine AdvReac Severe Nausea Verified 06/09/25 16:11 Opioid HPI Opioid Management Most Recent Opioid Data: Last Pain Scale 5 01/07/25, 16:11 Last ED Pain Assessment Today, 18:55 Review of Systems ROS Status of ROS 10 or more systems reviewed and unremark able except as noted in history and below PFSH PFSH Social History Smoking status: Former smoker Little interest or pleasure in doing things: not at all Feeling down, depressed, or hopeless: not at all Exam Narrative Exam Narrative: General: No distress, age-appropriate Skin: Warm, dry, no pallor. No rash. Head: Normocephalic, atraumatic. Neck: Supple, non-tender. Eye: Pupils are equal, round and EOMI. No scleral icterus. Ears, Nose, Mouth, and Throat: No nasal mucosal hypertrophy. Oral mucosa is moist, no posterior oropharynx erythema, uvula is mid-line Cardiovascular: Regular Rate and Rhythm without murmur, gallop or rub. Respiratory: No accessory muscle use or respiratory distress. Lungs are clear to auscultation, no wheezing, rales or rhonchi Chest Wall: no tenderness Back: No midline thoracic or lumbar vertebral tenderness. Musculoskeletal: Full ROM of all extremities, no calf or popliteal tenderness GI: Abdomen is soft, non-distended, non tender to palpation. No masses appreciated. No rebound, guarding, or rigidity noted. Neurological: A&O x4. No cranial nerve dysfunction observed. No truncal ataxia. Moves all extremities. Sensation intact. Psychiatric: Cooperative and interactive. Normal mood and affect. Constitutional Vital Signs, click to edit/add: Last Vital Signs Temp 98.2 F 06/09/25 21: Pulse 85 06/09/25 21:22 Resp 19 06/09/25 21: BP 156/97 H 06/09/25 21:22 Pulse Ox 94 L 06/09/25 21:22 Documenting provider has reviewed patient's vital signs: yes Course Vital Signs Vital signs: Vital Signs Temperature 98.6 F 06/09/25 16:06 Pulse Rate 98 H 06/09/25 16:06 Respiratory Rate 18 06/09/25 16:06 Blood Pressure 160/88 H 06/09/25 16:06 Pulse Oximetry 98 06/09/25 16:06 Temperature 98.2 F 06/09/25 21: Pulse Rate 85 06/09/25 21:22 Respiratory Rate 19 06/09/25 21:22 Blood Pressure 156/97 H 06/09/25 21:22 Pulse Oximetry 94 L 06/09/25 21:22 Medical Decision Making [facility] Narrative Medical decision making narrative: This is a 75-year-old female with a PMH of fibromyalgia that presented to the emergency department with complaints of 1 week of cough, shortness of breath, and chest pain. She presents today as she states that she coughed up blood once early this morning. She has a son who was recently diagnosed here with stage IV lung cancer after coughing up blood and is concerned. She denies any other symptoms such as headache, runny nose, nasal congestion, sore throat. She has been getting chills and night sweats but did not take her temperature. She has no history of cancer, no sick contacts, no recent surgery, no hospitalization, but does use estrogen cream as needed. She does have a past surgical history for a patent ductus arteriosus as a child. On arrival patient is in no distress, does report shortness of breath on exam but speaks in full sentences. Blood pressure is hypertensive at 156/97, HR stable, Hemodynamically stable. Temperature is afebrile at 98.2 ?F. 94% O2 saturations on room air. I discussed that I would like to be a CTA chest and an IV will be placed. Patient states that 15 years ago she did have anaphylactic shock with iodine contrast. She has since had contrasted studies with premedication and has had no side effects or reactions. IV placed. 50mg Benadryl p.o. and 100 mg Solu-Medrol IV given for premedication for CT scan. Labs CBC: She does have anemia noted, hemoglobin 11.5 that has dropped from 14.15 months ago, No leukocytosis WBC 6.1. CMP: Within normal limits Troponin: Negative Influenza A/B and COVID-19: Negative CTA chest: Negative for PE or acute pulmonary process. Patient updated with results and likely diagnosis is bronchitis. I discussed discharge and patient is agreeable and feels comfortable. I am going to prescribe her a Z-Kirill at discharge. We discussed strict return precautions that were also provided in her discharge instructions. Patient was discharged in stable condition with plan for follow-up with her nurse practitioner. Differential Diagnosis Differential Diagnosis: PE, malignancy, PNA, bronchitis Lab Data Lab results reviewed: Yes I reviewed the patient's lab results Labs: Lab Results 06/09/25 06/09/25 Range/Units 19:34 19:36 WBC 6.1 (4.0-11.0) 10^3/uL RBC 3.71 L (4.20-5.40) 10^6/uL Hgb 11.5 L (12.0-16.0) g/dL Hct 33.4 L (36.0-48.0) % MCV 90.0 (81.0-99.0) fL MCH 31.0 (26.7-34.0) pg MCHC 34.4 (29.9-35.2) g/dL RDW 13.2 (11.0-15.0) % Plt Count 228 (150-450) 10^3/uL MPV 9.3 L (9.5-13.5) fL Neut % (Auto) 63.2 (43.0-75.0) % Lymph % (Auto) 29.0 (20.5-60.0) % Bulloch % (Auto) 7.4 (1.7-12.0) % Eos % (Auto) 0.0 L (0.9-7.0) % Baso % (Auto) 0.2 (0.2-2.0) % Neut # (Auto) 3.8 (1.4-6.5) 10^3/uL Lymph # (Auto) 1.8 (1.2-3.8) 10^3/uL [place]och # (Auto) 0.5 (0.3-0.8) 10^3/uL Eos # (Auto) 0.0 (0.0-0.7) 10^3/uL Baso # (Auto) 0.0 (0.0-0.1) 10^3/uL Abs Immat Gran (auto) 0.01 (0.00-0.03) 10^3/uL Imm/Tot Granulo (auto) 0.2 (0.0-0.5) % Sodium 140 (136-145) mmol/L Potassium 3.7 (3.5-5.1) mmol/L Chloride 104 (98-107) mmol/L Carbon Dioxide 27.2 (21.0-32.0) mmol/L Anion Gap 12.5 BUN 14.0 (7.0-18.0) mg/dL Creatinine 0.60 (0.55-1.02) mg/dL Est GFR ( Amer) >60 (>=60 mL/min/1.73m^2) Est GFR (Non-Af Amer) >60 (>=60 mL/min/1.73m^2) BUN/Creatinine Ratio 23.3 Glucose 150 H (74-106) mg/dL Calcium 9.8 (8.5-10.1) mg/dL Total Bilirubin 0.4 (0.2-1.0) mg/dL AST 19 (15-37) U/L ALT 30 (14-59) U/L Alkaline Phosphatase 74 (46-116) U/L Troponin I High Sens 4.2 (4.0-51.3) pg/mL Total Protein 7.1 (6.4-8.2) g/dL Albumin 3.4 (3.4-5.0) g/dL Globulin 3.7 g/dL Albumin/Globulin Ratio 0.9 Influenza Type A Ag Negative Influenza Type B Ag Negative SARS-CoV-2 Ag (CV2AG) Negative (NEGATIVE) Imaging Data CT scan - chest: Attestation: I have reviewed the pertinent imaging results. Radiologist's impression: ITS Impressions Chest CTA 06/09/25 18:53 IMPRESSION: No CT evidence of pulmonary embolism. Negative acute pulmonary process Impression dictated by: Martin Conley M.D. 06/09/2025 9:43 PM Dictation Location: [place] [address] Electronically authenticated by: [id number] Y Date: 06/09/2025 21:43 ECG Data Attestation: ?I have reviewed the pertinent ECG results. Discharge Plan Discharge Chief Complaint: Weakness Clinical Impression: Bronchitis Patient Disposition: Home, Self-Care Time of Disposition Decision: 21:54 Condition: Good Mode of Transportation: Private Vehicle Prescriptions / Home Meds: New azithromycin [Zithromax Z-Kirill] 250 mg tablet See Rx Instructions PO .COMPLEX Qty: 6 0RF Rx Instructions: For 250 mg dose pack: take 500 mg today (day 1), then 250 mg for 4 days (days 2-5) No Action omeprazole 20 mg capsule,delayed release(DR/EC) 20 mg lisinopril 5 mg tablet 5 mg trazodone 50 mg tablet atorvastatin 10 mg tablet ibuprofen 800 mg tablet minoxidil 2.5 mg tablet lorazepam 1 mg tablet dutasteride 0.5 mg capsule PO Ozempic 0.25 mg or 0.5 mg (2 mg/3 mL) pen injector SUBCUT Print Language: [place] Instructions: Acute Bronchitis (ED) Referrals: Physician,Non-Staff, MD [Primary Care Provider] - 1 week
--- NOTE | 2025-06-09 19:10 | PC.NURSE ---
patient report given at this time
--- NOTE | 2025-06-09 19:21 | PC.NURSE ---
i introduced myself to this patient and informed of her plan of care iv with medication and EKG
[2025-06-09 19:45] LABS: Hematocrit 33.4 % (36.0-48.0); Hemoglobin 11.5 g/dL (12.0-16.0); Immature Granulocytes Abs Auto 0.01 10^3/uL (0.00-0.03); Immature Granulocytes Pct Auto 0.2 % (0.0-0.5); Lymphocytes Absolute Auto 1.8 10^3/uL (1.2-3.8); Mean Corpuscular HGB Conc 34.4 g/dL (29.9-35.2); Mean Corpuscular Hemoglobin 31.0 pg (26.7-34.0); Mean Corpuscular Volume 90.0 fL (81.0-99.0); Platelet Count 228 10^3/uL (150-450); Red Blood Count 3.71 10^6/uL (4.20-5.40); White Blood Count 6.1 10^3/uL (4.0-11.0)
[2025-06-09] MEDS: METHYLPREDNISOLONE SOD SUCC PF 125 MG/2 ML VIAL 100 MG IVP (19:53)
[2025-06-09] MEDS: DIPHENHYDRAMINE HCL 25 MG CAPSULE 50 MG PO (19:54)
[2025-06-09 19:59] LABS: SARS-CoV-2 Ag NEGATIVE (NEGATIVE)
[2025-06-09 20:12] LABS: Alanine Aminotransferase 30 U/L (14-59); Albumin Globulin Ratio 0.9; Albumin Level 3.4 g/dL (3.4-5.0); Alkaline Phosphatase 74 U/L (46-116); Anion Gap 12.5; Aspartate Amino Transferase 19 U/L (15-37); Blood Urea Nitrogen 14.0 mg/dL (7.0-18.0); Calcium 9.8 mg/dL (8.5-10.1); Carbon Dioxide 27.2 mmol/L (21.0-32.0); Chloride 104 mmol/L (98-107); Estimated GFR (African America >60 (>=60 mL/min/1.73m^2); Estimated GFR (Non-African Ame >60 (>=60 mL/min/1.73m^2); Globulin 3.7 g/dL; Glucose 150 mg/dL (74-106); Potassium 3.7 mmol/L (3.5-5.1); Sodium 140 mmol/L (136-145); Total Protein 7.1 g/dL (6.4-8.2)
--- NOTE | 2025-06-09 22:31 | PC.NURSE ---
i gave this patient verbal and written discharge orders along with 1 e-script, and this patient voices yes to understanding these. at time of discharge this patient voices no concerns, needs and shows no signs of distress
== END 2025-06-09 22:13 | disposition home or self-care (01) ==
PROVIDERS: Physician Assistant; Emergency Provider Emergency Medicine; PCP Physician Assistant Medical
DX: J40 Bronchitis, not specified as acute or chronic (principal); M79.7 Fibromyalgia; Z63.4 Disappearance and death of family member; Z87.891 Personal history of nicotine dependence; R06.02 Shortness of breath; R07.9 Chest pain, unspecified
CPT/HCPCS: 36415; 71275; 80053; 84484; 85025; 87804; 87811; 93005; 96374; 99285; J2919; Q9967